=== PATIENT | female | born 1940 | race Caucasian/White ===

== ENCOUNTER 2019-10-11 12:54 | Inpatient (IN) | payer MEDICARE, OTHER, MEDICAID, SELFPAY | END 2019-10-20 15:54 | disposition skilled nursing facility (03) | DRG 243 | PROVIDERS: Admitting Provider Family Medicine; Family Provider Family Medicine; Visit Provider Internal Medicine | DX: I48.20 Chronic atrial fibrillation, unspecified (principal); I13.0 Hypertensive heart and chronic kidney disease with heart failure and stage 1 through stage 4 chronic kidney disease, or unspecified chronic kidney disease; N17.9 Acute kidney failure, unspecified; I50.32 Chronic diastolic (congestive) heart failure; I49.5 Sick sinus syndrome; E86.0 Dehydration; I10 Essential (primary) hypertension; T50.905A Adverse effect of unspecified drugs, medicaments and biological substances, initial encounter; N14.2 Nephropathy induced by unspecified drug, medicament or biological substance; Z79.82 Long term (current) use of aspirin; F41.8 Other specified anxiety disorders; E78.5 Hyperlipidemia, unspecified; N18.3 Chronic kidney disease, stage 3 (moderate); K21.9 Gastro-esophageal reflux disease without esophagitis; M19.90 Unspecified osteoarthritis, unspecified site; G89.29 Other chronic pain; M79.606 Pain in leg, unspecified; Z86.73 Personal history of transient ischemic attack (TIA), and cerebral infarction without residual deficits ==

== ENCOUNTER 2019-10-23 10:29 | Emergency (ER) | payer SELFPAY | END 2019-10-23 13:20 | disposition home or self-care (01) | PROVIDERS: Emergency Provider Physician Assistant; Family Provider Family Medicine; Visit Provider Physician Assistant | DX: I82.621 Acute embolism and thrombosis of deep veins of right upper extremity (principal); I48.91 Unspecified atrial fibrillation; I10 Essential (primary) hypertension; M19.90 Unspecified osteoarthritis, unspecified site; K21.9 Gastro-esophageal reflux disease without esophagitis; Z79.82 Long term (current) use of aspirin; Z91.041 Radiographic dye allergy status; Z88.5 Allergy status to narcotic agent; Z88.0 Allergy status to penicillin; Z88.2 Allergy status to sulfonamides ==

== ENCOUNTER 2019-11-15 12:26 | Outpatient (CLI) | payer MEDICARE, OTHER, SELFPAY ==
--- NOTE | 2019-11-15 | US_ITS ---
WS: [id number] RIGHT UPPER EXTREMITY VENOUS ULTRASOUND EXAMINATION CLINICAL INFORMATION: SWELLING OF LIMB COMPARISON: None. FINDINGS: The right internal jugular, subclavian, and axillary veins are patent and free of thrombus. The visua lized right brachiocephalic veins is patent. Thrombus in the right basilic. Right cephalic is patent. US/ROR venous duplex UE RT IMPRESSION: Thrombus in the right basilic vein. Remainder upper extremity veins are patent
== END 2019-11-15 12:27 | disposition home or self-care (01) ==
LOC: RADOUTREAD 11-16 07:32
PROVIDERS: Family Provider Family Medicine; PCP Family Medicine; Visit Provider Physician Assistant
DX: Z76.89 Persons encountering health services in other specified circumstances (principal)

== ENCOUNTER → 2021-01-26 08:10 | Day surgery (SDC) | payer MEDICARE, OTHER, MEDICAID, SELFPAY | PROVIDERS: PCP Physician Assistant; Visit Provider Orthopaedic Surgery | DX: Z01.818 Encounter for other preprocedural examination (principal); M16.11 Unilateral primary osteoarthritis, right hip | CPT/HCPCS: 93005 ==

== ENCOUNTER → 2021-02-03 13:13 | Outpatient (BNVA) | payer MEDICARE, OTHER, SELFPAY | PROVIDERS: PCP Physician Assistant; Visit Provider Orthopaedic Surgery | DX: Z01.812 Encounter for preprocedural laboratory examination (principal); Z20.828 Contact with and (suspected) exposure to other viral communicable diseases | CPT/HCPCS: 87635 ==

== ENCOUNTER 2021-02-09 12:01 | Observation (INO) | payer MEDICARE, OTHER, SELFPAY ==
--- NOTE | 2021-01-26 13:03 | ECG_ITS ---
[facility] ED Test Date: 2021-01-26 Pat Name: Melba Leroy Department: Room: Gender: Female Software Quality Tester: : 1940 Requested By: Linh Navarro Order Number: [id number] Link MD: Freda Cardenas M.D. Measurements Intervals Iva Rate: 60 P: 82 MI: 249 QRS: -40 QRSD: 137 T: -5 QT: 453 QTc: 453 Interpretive Statements ELECTRONIC ATRIAL PACEMAKER MARKED LEFT AXIS DEVIATION [QRS AXIS < -30] RIGHT BUNDLE BRANCH BLOCK [120+ ms QRS DURATION, UPRIGHT V1, 40+ ms S IN I/aVL/V4/V5/V6] Compared to ECG 10/15/2019 04:30:08 No significant changes Electronically Signed On 01-29-2021 22:38:11 CDT by Freda Cardenas M.D. [id number]
[2021-01-26 13:13] VITALS: BMI 28.3
[2021-01-26 13:34] LABS: Basophils # 0.1 10^3/uL (0.0-0.1); Basophils % 0.8 %; Eosinophils # 0.1 10^3/uL (0.0-0.8); Eosinophils % 1.1 %; Hematocrit 39.5 % (37.0-47.0); Hemoglobin 12.4 g/dL (11.5-15.3); Lymphocytes # 1.9 10^3/uL (0.8-4.8); Lymphocytes % 25.8 %; Mean Corpuscular HGB Conc 31.4 g/dL (30.0-36.0); Mean Corpuscular Hemoglobin 28.3 pg (28.0-34.0); Mean Corpuscular Volume 90.2 fL (81-99); Mean Platelet Volume 9.5 fL (7.4-10.4); Monocytes # 0.6 10^3/uL (0.2-0.9); Monocytes % 8.8 %; Neutrophils # 4.53 10^3/uL (1.8-7.7); Neutrophils % 63.2 %; Nucleated Red Blood Cells % 0 %; Platelet Count 259 10^3/cmm (130-400); Red Blood Count 4.38 10^6/uL (4.1-5.3); Red Cell Distribution Width 13.4 % (12.1-15.1); White Blood Count 7.2 10^3/uL (4.0-10.0)
--- NOTE | 2021-01-26 13:47 | ANES.PREANE2 ---
Pre-Anesthetic Assessment Pre-Anesthetic Assessment: Height/Weight: Height 1.55 m Weight 68.039 kg Preop Diagnosis: Osteoarthritis Proposed Procedure: Operation Date: 02/09/21 10:00 Proposed Procedures p Total Hip Arthroplasty 61022 M16.11(Right) - Andrea Fowler MD Familial anesthetic complications: hard to wake Social: Social History: No alcohol and No tobacco Exam: Pre-Anes Outpt Exam: alert, oriented x 3, clear to auscultation bilaterally and regular rate & rhythm Airway: Cervical ROM: WNL MP: 2 Dentition: False CV/HEM: CV/HEM: Afib (pacemaker) and HTN Anesthetic Plan: ASA status: 3 Anesthesia: MAC and Regional (specify below) Other: spinal if off eliquis PFSH Anesthesia PFSH: Medical History Arthritis Essential hypertension GERD (gastroesophageal reflux disease) History of anemia Hyperlipidemia Persistent atrial fibrillation Sick sinus syndrome Tachy-yun syndrome Surgical History History of back surgery Family History Father CAD (coronary artery disease) Lung disease Mother Dementia Hypertension Sister Dementia Other Diabetes Social History Smoking and tobacco status: never smoked Alcohol intake: never Data Anesthesia CBC & Chem 7: 01/26/21 13:27 01/26/21 13:27 Other Labs: Laboratory Results - last 48 hr 01/26/21 13:27 WBC 7.2 RBC 4.38 Hgb 12.4 Hct 39.5 MCV 90.2 MCH 28.3 MCHC 31.4 RDW 13.4 Plt Count 259 MPV 9.5 Neut % (Auto) 63.2 Lymph % (Auto) 25.8 [place] % (Auto) 8.8 Eos % (Auto) 1.1 Baso % (Auto) 0.8 Neut # (Auto) 4.53 Lymph # (Auto) 1.9 [place] # (Auto) 0.6 Eos # (Auto) 0.1 Baso # (Auto) 0.1 Nucleated RBC % (auto) 0 Nucleated RBCs # 0.0 Cardiac Studies: No Data to Display
[2021-01-26 13:53] LABS: Anion Gap 13.6 (5-19); Blood Urea Nitrogen 24 mg/dL (8-23); Calcium 8.8 mg/dL (8.5-10.5); Carbon Dioxide 25 mmol/L (22-29); Chloride 96 mmol/L (98-107); Glucose 97 mg/dL (65-115); Osmolality Calculated 274 mOsm/kg (285-295); Potassium 4.6 mmol/L (3.5-5.1); Sodium 130 mmol/L (136-145)
[2021-02-09] VITALS (18 sets, daily range): BP systolic 99–164; BP diastolic 59–87; PULSE 60–90; RESP 15–18; TEMP 35.9–37.1; O2SAT 90–98
--- NOTE | 2021-02-09 09:03 | P.HP_ITS ---
Same Day Surgery H&P Indication for Procedure/HPI DATE OF PROCEDURE: February 09, 2021 CHIEF COMPLAINT/INDICATIONFOR SURGICAL PROCEDURE: Osteoarthritis right hip here for right total hip arthroplasty PREOP DIAGNOSIS: Osteoarthritis PLANNED PROCEDRUE: Operation Date: 02/09/21 09:35 Proposed Procedures p Total Hip Arthroplasty 84549 M16.11(Right) - Andrea Fowler MD Medications/Allergies* Home Medications Medication Instructions Recorded Confirmed Type amiodarone 200 mg tablet 200 mg PO DAILY tab 10/31/19 02/09/21 History apixaban 5 mg tablet 5 mg PO BID 10/31/19 02/09/21 History citalopram 20 mg tablet 20 mg PO DAILY tab 10/31/19 02/09/21 History isosorbide mononitrate 10 mg tablet 10 mg PO DAILY tab 10/31/19 02/09/21 History lovastatin 20 mg tablet 20 mg PO DAILY tab 10/31/19 02/09/21 History magnesium 250 mg tablet 250 mg PO DAILY tab 10/31/19 01/26/21 History metoprolol tartrate 25 mg tablet 12.5 mg PO BID 10/31/19 02/09/21 History tamsulosin 0.4 mg capsule 0.4 mg PO DAILY cap 10/31/19 02/09/21 History amlodipine 5 mg tablet 5 mg PO DAILY tab 06/23/20 02/09/21 History furosemide 20 mg tablet 20 mg PO DAILY tab 06/23/20 02/09/21 History losartan 100 mg tablet 100 mg PO DAILY tab 06/23/20 02/09/21 History potassium chloride 10 mEq 10 meq PO DAILY tab 06/23/20 02/09/21 History tablet,extended release Allergies/Adverse Reactions Allergy/AdvReac Type Severity Reaction Status Date / Time Iodine and Iodide Containing Allergy Unknown Verified 01/26/21 13:06 Produc penicillin G Allergy rash Verified 01/26/21 13:06 Sulfa (Sulfonamide Allergy rash Verified 01/26/21 13:06 Antibiotics) Pertinent History/Comorbid Conditions* Medical History (Updated 06/23/20 @ 14:01 by Cedric Bermudez MD) Arthritis Essential hypertension GERD (gastroesophageal reflux disease) History of anemia Hyperlipidemia Persistent atrial fibrillation Sick sinus syndrome Tachy-yun syndrome Surgical History (Updated 11/24/19 @ 11:12 by SWETA Ruiz) History of back surgery Family History (Updated 11/22/19 @ 11:54 by Mya Marsh RN) Diabetes CAD (coronary artery disease) Father Dementia Mother Sister Lung disease Father Hypertension Mother Social History Smoking and tobacco status: never smoked Alcohol intake: never Pertinent Exam Findings alert, oriented x 3, clear to auscultation bilaterally, regular rate & rhythm and operative site marked Recommendations Surgery/Procedure today Coding Level of Care Code Acute Sales Solutions Representative for Adriano Palacios
[2021-02-09] MEDS: oxyCODONE 20 mg ER (12 HR) Tablet PO (09:06)
[2021-02-09] MEDS: gabapentin 300 mg Capsule PO ×2 (09:07→17:54)
[2021-02-09] MEDS: acetaminophen 500 mg Tablet 1000 MG PO ×2 (09:08→17:54)
[2021-02-09] MEDS: CELEcoxib 200 mg Capsule 400 MG PO (09:08)
[2021-02-09] MEDS: sodium chloride 0.9% 1,000 ML 30 ML IV (09:11)
[2021-02-09] MEDS: scopolamine 1.5 Patch 1 PATCH TRANSDERMA (09:19)
--- NOTE | 2021-02-09 09:28 | P.ANESUD_ITS ---
Pre-Anesthetic Update Pre-Anesthetic Assessment: Date of Surgery/Procedure: 02/09/21 Preop Chel gnosis: Osteoarthritis Proposed Procedure: Operation Date: 02/09/21 09:35 Proposed Procedures p Total Hip Arthroplasty 09144 M16.11(Right) - Andrea Fowler MD Any changes to Pre-Anesthetic Assessment?: No Last Intake: Intake Last Liquid Date 02/08/21 Last Liquid Time 21:00 Last Solid Date 02/08/21 Last Solid Time 18:00 Vitals: Temperature 97.7 F 02/09/21 08:46 Temperature Source Temporal Artery S can 02/09/21 08:46 Pulse Rate 63 02/09/21 08:46 Respiratory Rate 18 02/09/21 09:06 Respiratory Depth Normal 02/09/21 09:06 Respiratory Patter n 02/09/21 09:06 Blood Pressure 164/87 02/09/21 08:46 Blood Pressure Radha n 112 02/09/21 08:46 Pulse Oximetry 98 02/09/21 09:06 Oxygen Delivery Me thod 02/09/21 08:46 Exam: Pre-Anes Outpt Exam: alert, oriented x 3, clear to auscultation bilaterally and regular rate & rhythm Cardiac Studies: No Data to Display
[2021-02-09] MEDS: tranexamic acid 1,000 mg/10mL SDV 1000 MG IRRIGATION (10:23)
--- NOTE | 2021-02-09 11:31 | P.OP_ITS ---
Operative Report Date of procedure: February 09, 2021 Pre-op Diagnosis: Osteoarthritis Post-op diagnosis: same Post-op Findings: Same Procedure Done: Right total hip arthroplasty Pathology: none sent Surgeon: Andrea Fowler Anesthesia: Nerve Block (Spinal) Estimated blood loss (mL): 200 Findings: Patient had severe degenerative changes of the right hip with flattening of the femoral head and eburnation of the acetabular Condition: stable Disposition: PACU Procedure: The patient was taken to the operating room and anesthesia provided by the anesthesia service. The patient was placed in the lateral position on a beanbag. A timeout was performed. The patient was draped in the usual fashion. A 15 cm long incision was made beginning just proximal to the greater trochanter and extending posteriorly to a point just distal to the trochanter on the posterior border of the trochanter. Dissection was carried down with electrocautery through the subcutaneous fat to the fascia edilberto which was divided proximally and distally with curved scissors. The anterior two thirds of the gluteus medius and minimus were elevated off the hip with electrocautery. The capsule was divided in a H-like fashion. The hip was dislocated and a neck cut made just above the level of the lesser trochanter. Exposure of the acetabulum was facilitated with the acetabular retractors. Remnants of labrum and peripheral osteophytes were removed with electrocautery and a rongeur. A reamer 2 mm under the size the femoral head was utilized to ream medially to the base of the palm and are. Reaming was then increased in 1 mm intervals until a healthy rim a trabecular bone was encountered. A trial ADM cup was placed and its position marked with electrocautery In the acetabulum. A final was press-fit into place. Attention was then focused on the femur. Sequential reaming was done under power until cortical chatter was encountered. Broaching was then accomplished until a stable broach size was obtained. A trial reduction with the head and neck provided excellent stability. The wound was irrigated with saline and antibiotic solution. The final Jorge SecureFit Max stem was press-fit into place. The femoral head was placed and the hip was reduced. The hip was brought through range of motion and found to be free of impingement and stable. The anterior capsule was reapproximated with 1 Ethibond. The gluteus medius and minimus were repaired through bone with 5 Ethibond and reinforced with 1 Ethibond. The fascial edilberto was closed with a running 0 Stratafix suture. Deep pelvic tissues were closed with 2-0 Stratafix and the skin with a running 4-0 l Stratafix. 1) Institute []mm ADM acetabular shell 2) Size [] Institute [] degree neck angle SecureFit Max stem 3} []mm [] femoral head 4} Restorationa ADM X3 insert
--- NOTE | 2021-02-09 11:39 | XRR_ITS ---
PROCEDURE INFORMATION: Exam: XR Pelvis Exam date and time: 02/09/2021 11:45 AM Age: 81 years old Clinical indication: Device placement; Other: Total hip arthroplasty; Prior surgery; Surgery date: Post-operative (0-2 days) TECHNIQUE: Imaging protocol: XR pelvis. Views: 1 or 2 view. COMPARISON: CR XR hip RT 2-3V wo/w pel* [id number] 02/27/2020 10:58 AM FINDINGS: Bones/joints: The patient has undergone recent insertion of a total right hip prosthesis. Gas is present in the soft tissues from the recent surgery. No fracture or other acute abnormalities are seen. Soft tissues: See Bones/joints finding. XR/XR pelvis 1-2V* [id number] IMPRESSION: Satisfactory appearance of the total right hip prosthesis.
--- NOTE | 2021-02-09 13:28 | SUR.PHASEI ---
1135 PT TO PACU AWAKE ALERT ON RA PT SMILING AND ANSWERS QUESTIONS APPROPRIATELY, VSS SPINAL ANESTHESIA AT T 10 AREA.
--- NOTE | 2021-02-09 13:29 | SUR.PHASEI ---
1204 PT REMAINS AWAKE PAIN FREE, VSS SPINAL NOW AT T-12 PT UNABLE TO MOVE TOES, ABD PILLOW IN PLACE, VSS URINE YELLOW TO HESTER AND TUBING. SCD TO UNAFFECTED LEG. DISTAL RT PULSE STRONG AND REGULAR AND MARKED. PT TO FLOOR PER BED DAUGHTER CALLED AND MET PT AT ROOM.
--- NOTE | 2021-02-09 15:41 | ANE.PACU2 ---
Inpatient post-anesthesia follow up: Airway intact: Yes Vital signs: Temperature 98.7 F Pulse Rate 60 Respiratory Rate 18 Blood Pressure 128/77 Pulse Oximetry 96 Oxygen Delivery Me thod Room Air Oxygen Flow Rate Fraction of Inspir ed Oxygen Hydration adequate: Yes Nausea and vomiting: No Pain level: 2 Mental status: Baseline
[2021-02-09] MEDS: oxyCODONE 5 mg IR Tab/Cap PO (16:28)
[2021-02-09] MEDS: sennosides-docusate Tablet 2 TAB PO (17:54)
[2021-02-09] MEDS: sodium chloride 0.9% 1,000 ML 100 ML IV (20:01)
[2021-02-10] VITALS (7 sets, daily range): BP systolic 91–129; BP diastolic 55–73; PULSE 61–66; RESP 16–19; TEMP 36.6–37.1; O2SAT 90–95
[2021-02-10] MEDS: acetaminophen 500 mg Tablet 1000 MG PO ×2 (02:02→08:37)
[2021-02-10 02:18] LABS: Hemoglobin 9.8 g/dL (11.5-15.3)
[2021-02-10] MEDS: sodium chloride 0.9% 1,000 ML 100 ML IV (06:01)
[2021-02-10] MEDS: sennosides-docusate Tablet 2 TAB PO (08:33)
[2021-02-10] MEDS: isosorbide mononitrate 20 mg Tablet 10 MG PO (08:34)
[2021-02-10] MEDS: atorvastatin 40 mg Tablet 20 MG PO (08:35)
[2021-02-10] MEDS: potassium chloride ER 10 mEq Tablet PO (08:37)
[2021-02-10] MEDS: gabapentin 300 mg Capsule PO (08:37)
[2021-02-10] MEDS: citalopram 20 mg Tablet PO (08:38)
[2021-02-10] MEDS: tamsulosin 0.4 mg Capsule PO (08:38)
--- NOTE | 2021-02-10 10:19 | PC.CHAP ---
Pastoral Care Encounter/Spiritual Assessment Type of Contact [] Declined propagator laborer visit [] Patient/Family/Request visit [] Outpatient visit [] Follow-up visit [] Physician referral [] Code/Alert [xx] Routine visit [] Staff referral [] Actively dying [] Patient sleeping [] Family support [] [] Out of room [] Palliative care [] [] Receiving care in room [] Pre-surgical visit [] Trauma [] Long length of stay [] ICU visit [] Other: Relational/Emotional Strength [] Patient feels connected with others/family/visitors/staff [] Distress [] Loneliness/isolation [] Abandonment Spirituality of Patient [x] Person of Lor [x] Attends Confucianist of their Lor [x] Believes in Prayer [] Reads Bible or Protestant materials [] There are Spiritual issues to be addressed Yolk Spray Drier Interventions [x] Prayer [x] Active listening [x] Non-anxious presence [x] Spiritual/emotional support [] Crisis/trauma care [] Spiritual counseling [] Bereavement support [] Provided bereavement packet [] Provided Bible/devotional materials [] Provided toy/stuffed animal, coloring book to patient or family member [] Provided Communion [] Anointing/[place] [] Salvation [x] Completed spiritual assessment [] Other: Impact on Illness or Injury [] Angry [] Fearful [] Anxious [] Often cries [] Exhaustion [] Unable to work [] Unable to attend christian [] Unable to walk/stand [] Unable to read [] Unable to drive [] Unable to eat/drink [] Unable to sleep [] Unable to be with family [] Patient intubated [] Other: Summary Time spent with patient
[2021-02-10] MEDS: apixaban 5 mg Tablet PO (10:57)
--- NOTE | 2021-02-10 14:33 | PM.DCS ---
Discharge Providers Date of Admission: 02/09/21 12:01 Date of Discharge: February 10, 2021 Attending Provider at Admission: Andrea Fowler MD Attending Provider at Discharge: Andrea Fowler MD Primary Care Provider: Lidia Stephens Diagnoses at Discharge Discharge Diagnosis (1) Status post right hip replacement: Status: Acute (2) Osteoarthritis of right hip: Status: Resolved Reason for Visit Reason for Visit: primary osteoarthrtis of hip Hospital Course Hospital Course Patient underwent elective right total hip arthroplasty on 02/09/2021. On the first postoperative day she had minimal pain. She did well with her walker and was independent with gait. She was resumed on her Eliquis and managed with sequential compression dressings for DVT prophylaxis. At the time of this dictation she is scheduled for discharge when she passes her urine Physical Exam Narrative: EXAM NARRATIVE: On the day of discharge the hip incision was clean. The incision was free of drainage. They had no particular swelling about the thigh or distal. No distal neurovascular deficits were noted. Urinary Catheter Management^: Black: Cath Placed During This Visit: yes Urinary Catheter Date of Insertion: 02/09/21 Urinary Catheter Time of Insertion: 10:00 Discharge Data Data Completed and Pending: Completed Studies During Hospitalization Category Date Time Status XR pelvis 1-2V* 7 2170 Routine Exams 02/09/21 11:39 Completed Labs from last 24 hours 02/10/21 01:55 Hgb 9.8 L Vitals: Last Vital Signs Temp 98.7 F 02/10/21 11:36 Pulse 62 02/10/21 11:36 Resp 19 H 02/10/21 11:36 BP 109/55 02/10/21 11:36 Pulse Ox 95 02/10/21 11:36 Discharge Plan Discharge Patient Disposition: Home Condition: Stable Prescriptions: New oxycodone 5 mg Tablet 5 mg PO Q4H PRN (Reason: Moderate Pain) 7 Days Qty: 40 RF: 0 Continued amiodarone 200 mg tablet 200 mg PO DAILY RF: 0 Eliquis 5 mg tablet 5 mg PO BID RF: 0 amlodipine 5 mg tablet 5 mg PO DAILY RF: 0 potassium chloride 10 mEq tablet extended release 10 meq PO DAILY RF: 0 furosemide 20 mg tablet 20 mg PO DAILY RF: 0 losartan 100 mg tablet 100 mg PO DAILY RF: 0 lovastatin 20 mg tablet 20 mg PO DAILY RF: 0 isosorbide mononitrate 10 mg tablet 10 mg PO DAILY RF: 0 citalopram [Celexa] 20 mg tablet 20 mg PO DAILY RF: 0 metoprolol tartrate 25 mg tablet 12.5 mg PO BID RF: 0 tamsulosin [Flomax] 0.4 mg capsule 0.4 mg PO DAILY RF: 0 magnesium 250 mg tablet 250 mg PO DAILY RF: 0 acetaminophen 650 mg tablet extended release 650 mg PO Q12H PRN (Reason: hypertension) Qty: 60 RF: 6 mupirocin 2 % ointment 1 applic topical BID Qty: 22 RF: 0 Discharge Orders: Discharge Order (Routine); Ordered 02/10/21 Ordered By: Andrea Fowler Other Ambulatory Orders: DME: Walker (Order) Location: None Selected Ordered By: Andrea Fowler Referrals: [facility]) [Outside] Andrea Fowler MD [Physician] - 02/24/21 11:45 am Discharge Diet: Advance as tolerated Discharge Activity: Limit activity as instructed Patient Instructions: Oxycodone, Rapid Release (By mouth), Total Hip Replacement (DC), How to Choose and Use a Walker (GEN), Opioid Safety Activity Restrictions/Additional Instructions: Okay to shower. No soaking incision in tub Apply FirstIce up to 20 min/hr for pain and swelling Take Tylenol as before surgery up to 3 times a day for pain take oxycodone for breakthrough pain. Exercises per physical therapy. May weight-bear as tolerated on total hip arthroplasty Discharge Attestations Time Spent in Discharge Care*: other Quality Metrics Clinical Quality Measures During this hospital stay, did patient experience: None Coding Level of Care Code Acute [facility] DC note Diagnoses Status post right hip replacement Z96.641 Osteoarthritis of right hip M16.11
== END 2021-02-10 17:22 | disposition home or self-care (01) ==
LOC: MEDSURG 12:01
PROVIDERS: Anesthesiology; Admitting Provider Orthopaedic Surgery; PCP Physician Assistant; Visit Provider Orthopaedic Surgery
PROC: (CPT 27130; principal; 2021-02-09 09:15)
DX: M16.11 Unilateral primary osteoarthritis, right hip (principal); Z95.0 Presence of cardiac pacemaker; I10 Essential (primary) hypertension; E78.5 Hyperlipidemia, unspecified; I48.19 Other persistent atrial fibrillation
CPT/HCPCS: 27130; 36415; 72170; 80048; 85018; 85025; 97116; 97161; 97166; 97530; 97535; C1776; G0378; J0690; J1580; J2704; J7030; P9047

== ENCOUNTER 2021-02-11 16:41 | Inpatient (IN) | payer MEDICARE, OTHER, SELFPAY ==
[2021-02-11 16:42] VITALS: BP 178/69; PULSE 70; RESP 18; TEMP 37.6; O2SAT 95; BMI 32.1
[2021-02-11 16:55] VITALS: BP 166/67; PULSE 64; O2SAT 93
--- NOTE | 2021-02-11 16:59 | XR_ITS ---
WS: [id number] Portable AP supine chest, 02/11/2021 Clinical Data: Right sided rhonchi. post op day 2 AMS Comparison: Portable chest, 10/18/2019. Findings: No nodules, masses or effusions are seen. The heart is normal. The pulmonary vascularity is not increased. No pneumonia or pneumothorax is seen. There is a 2-lead pacemaker unchanged in positi on. The aortic arch and descending aorta show tortuosity. XR/XR chest 1V portable [id number] Impression: Atherosclerosis.
--- NOTE | 2021-02-11 17:01 | ECG_ITS ---
[facility] Test Date: 2021-02-11 Pat Name: Melba Leroy Department: Room: Gender: Female Distance Learning Program Coordinator: : 1940 Requested By: Puneet Beltrán Order Number: [id number] Reading MD: SEAN GLORIA Measurements Intervals Johnson Rate: 60 P: 107 LA: 233 QRS: -11 QRSD: 129 T: 0 QT: 436 QTc: 438 Interpretive Statements ELECTRONIC ATRIAL PACEMAKER RIGHT BUNDLE BRANCH BLOCK [120+ ms QRS DURATION, UPRIGHT V1, 40+ ms S IN I/aVL/V4/V5/V6] Compared to ECG 01/26/2021 13:38:06 Left-axis deviation no longer present Electronically Signed On 02-11-2021 19:22:32 CDT by SEAN GLORIA [email or web address]
--- NOTE | 2021-02-11 17:02 | W.ED.AMS ---
Documented by User: Puneet Beltrán MD 02/19/21 23:35 HPI - Altered Mental Status General: Chief Complaint: Altered Mental Status Stated Complaint: AMS, POST HIP SURGERY 1 WK AGO Time Seen by Provider: 02/11/21 16:49 History of Present Illness: HPI narrative: The patient is an 81-year-old female with past medical history total hip arthroplasty yesterday. She comes to the ER today confused and short of breath. Family says she is also hallucinating. She is able to answer questions but does so slowly and is confused. MD complaint: confusion Associated symptoms: Deny depression Review of Systems General: Reports: 10 or more systems reviewed and unremarkable except in HPI and below Const: Denies: fatigue Eyes: Denies: change in vision, blurry vision or eye redness ENMT: Denies: throat pain, swelling of lips/tongue, ear or mastoid pain or nasal congestion Card: Denies: chest pain, palpitations, irregular heart rhythm, edema, dyspnea on exertion or orthopnea Resp: Denies: dyspnea, productive cough or non-productive cough GI: Denies: abdominal pain, diarrhea or GI cramping : Denies: flank pain, difficulty voiding, urinary frequency or urinary urgency Musc: Denies: neck pain, back pain, extremity pain, joint pain, joint redness, limited range of motion or muscle weakness Skin/Breast: Denies: rash, pruritus, erythema, skin pain or skin tenderness Neuro: Denies: headache(s), numbness in extremities, weakness in extremities, sensory changes, difficulty walking, dizziness, confusion or Slurred speech present Psych: Denies: anxiety or depression Endo: Denies: polyuria All/Imm: Denies: urticaria, throat swelling or tongue swelling PFSH ED PFSH: Medical History (Updated 02/14/21 @ 00:01 by ) Arthritis Essential hypertension GERD (gastroesophageal reflux disease) History of anemia Hyperlipidemia 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 Persistent atrial fibrillation Sick sinus syndrome Tachy-yun syndrome Surgical History (Updated 02/10/21 @ 08:16 by Andrea Fowler MD) History of back surgery Family History Father CAD (coronary artery disease) Lung disease Mother Dementia Hypertension Sister Dementia Other Diabetes Social History (Reviewed 01/07/21 @ 14:39 by MICHELINE Lang Smoking and tobacco status: never smoked Alcohol intake: never Physical Exam Const: COMMON NORMALS: no acute distress, average body habitus, patient oriented x3, no limitations, healthy appearing, alert and well nourished GENERAL APPEARANCE: cooperative, comfortable, well kempt and well developed ORIENTATION/CONSCIOUSNESS: Yes awake, Yes oriented to person, Yes oriented to place, Yes oriented to time and Yes confused HENMT: COMMON NORMALS: normocephalic, external ears normal and Normal external nose present HEAD & SCALP: normal to inspection and normocephalic NOSE: Normal external nose present EXTERNAL EAR: Yes external ears normal MOUTH: Normal oral and palatal mucosa present THROAT: posterior oropharynx normal Eye: COMMON NORMALS: Equal, round and reactive pupils present and EOMs intact bilaterally GENERAL EYE: appearance normal, both eyes and all related structures PUPIL: Yes Equal, round and reactive pupils present Neck/C-Spine: COMMON NORMALS: full ROM, no lymphadenopathy, no meningeal signs and no JVD GENERAL: Yes normal visual inspection Lymph: LYMPHATIC: no lymphadenopathy noted Chest: COMMONS NORMALS: normal inspection of the chest and normal palpation of entire chest wall Resp: COMMON NORMALS: normal respiratory effort, No retractions, No use of accessory muscles, clear to auscultation bilaterally and percussion normal EFFORT & INSPECTION: Yes able to speak in complete sentences AUSCULTATION: clear to auscultation bilaterally PERCUSSION: percussion normal Cardio: COMMON NORMALS: no JVD, regular rate, regular rhythm, S1 normal heart sound present, S2 normal heart sound present and Peripheral pulses 2+ throughout RATE: regular rate RHYTHM: regular rhythm HEART SOUNDS: S1 normal heart sound present and S2 normal heart sound present PERIPHERAL PULSES: Peripheral pulses 2+ throughout GI: COMMON NORMALS: Normal to inspection, nondistended, normoactive bowel sounds present, Soft to palpation, non-tender and no masses INSPECTION: Yes normal to inspection PALPATION: Yes Soft to palpation : COMMON NORMALS: Yes no CVA tenderness BLADDER/KIDNEY EXAM: Yes no CVA tenderness Back/Pelvis: COMMON NORMALS: no CVA tenderness, thoracic and lumbar spine normal to inspection, no thoracic nor lumbar tenderness and thoraco-lumbar ROM normal Extremity: COMMON NORMALS: normal to inspection, full ROM, capillary refill normal, no joint enlargement and no pedal edema NARRATIVE EXTREMITY EXAM: Right hip postsurgical scar looks clean and uninfected. Appropriate level of associated tenderness GENERAL: Yes normal exam except as noted Neuro: DEMARCUS COMA SCALE: document GCS findings Demarcus coma scale eye opening: Spontaneous Demarcus coma scale verbal response: Confused [place] coma scale motor response: Obey commands Demarcus coma scale total score: 14 COMMON NORMALS: patient oriented x3, CN's II-XII intact bilaterally, moves all extremities, no focal motor deficits, no sensory deficits noted and gait normal SENSORIUM/ORIENTATION: Yes alert, Yes oriented to person, Yes oriented to place and Yes oriented to time MENINGEAL SIGNS: Yes no meningeal signs Psych: COMMON NORMALS: mental status grossly normal, Normal thought process present, cooperative, normal affect and speech normal APPEARANCE: Yes well kempt ATTITUDE: Yes calm SPEECH: Yes normal speech THOUGHT PROCESS: Normal thought process present Skin: COMMON NORMALS: no rashes or lesions noted GENERAL SKIN EXAM: no rashes or lesions noted Course Vital Signs: Vital signs: Vital Signs Temperature 97.9 F 02/13/21 16:19 Pulse Rate 60 02/13/21 16:19 Respiratory Rate 18 02/13/21 16:19 Blood Pressure 115/62 02/13/21 16:19 Pulse Oximetry 91 02/13/21 15:10 MDM - Altered Mental Status MDM Narrative: Medical decision making narrative: Leigh Ann: I took care of this patient and she is 1 day postop and confused with a sodium of 126. Also has mild elevated temperature. Transferred care at shift change. Lab Data: Labs: Lab Results 02/11/21 02/11/21 02/11/21 Range/Units 00:54 17:56 18:49 WBC 12.4 H (4.0-10.0) 10^3/ uL RBC 3.70 L (4.1-5.3) 10^6/u L Hgb 10.6 L (11.5-15.3) g/dL Hct 34.3 L (37.0-47.0) % MCV 92.7 (81-99) fL MCH 28.6 (28.0-34.0) pg MCHC 30.9 (30.0-36.0) g/dL RDW 13.3 (12.1-15.1) % Plt Count 216 (130-400) 10^3/c mm MPV 9.8 (7.4-10.4) fL Neut % (Auto) 76.9 % Lymph % (Auto) 10.9 % [place] % (Auto) 9.6 % Eos % (Auto) 1.5 % Baso % (Auto) 0.4 % Neut # (Auto) 9.50 H (1.8-7.7) 10^3/u L Lymph # (Auto) 1.3 (0.8-4.8) 10^3/u L [place] # (Auto) 1.2 H (0.2-0.9) 10^3/u L Eos # (Auto) 0.2 (0.0-0.8) 10^3/u L Baso # (Auto) 0.1 (0.0-0.1) 10^3/u L Nucleated RBC % (a uto) 0 % Nucleated RBCs # 0.0 /100WBC D-Dimer (0-0.59) ug/mIFE U Sodium (136-145) mmol/L Potassium (3.5-5.1) mmol/L Chloride (98-107) mmol/L Carbon Dioxide (22-29) mmol/L Anion Gap (5-19) BUN (8-23) mg/dL Creatinine (0.5-0.9) mg/dL GFR Calculation Glucose (65-115) mg/dL Calculated Osmolal ity (285-295) mOsm/k g Lactate (0.5-2.2) mmol/L Calcium (8.5-10.5) mg/dL Total Bilirubin (0.15-1.2) mg/dL AST (0-32) U/L ALT (0-33) U/L Alkaline Phosphata se (35-105) IU/L Troponin T Baselin e (0-10) ng/L Troponin T Hi Sens 6Hr 47.47 H (0-10) ng/L Troponin T Hi Sens 6Hr Delta 0.56 (0-12) ng/L NT-Pro-B Natriuret Pep (0-450) pg/mL Total Protein (6.6-8.7) g/dL Albumin (3.5-5.2) g/dL Globulin (1.3-4.6) g/dL Urine Color Yellow (Yellow) Urine Appearance Clear (CLEAR) Urine pH 5 (5-7) Ur Specific Gravit y 1.005 (1.005-1.030) Urine Protein Neg (Negative) Urine Glucose (UA) Norm (Normal) Urine Ketones Negative (Negative) Urine Blood 2+ H (Negative) Urine Nitrate Negative (Negative) Urine Bilirubin Neg (Negative) Urine Urobilinogen Norm (Negative) mg/dL Ur Leukocyte Justa ase Negative (Negative) Urine RBC 0-4 H (0-2) /hpf Urine WBC 0-4 H (0-5) /hpf Ur Squamous Epith Cells 0-4 H (0-5) /hpf Amorphous Sediment Not Reportable Urine Bacteria Trace (NONE) /hpf SARS-CoV-2 Ag (Rap id) (Negative) 02/11/21 02/11/21 02/11/21 Range/Units 18:49 18:49 18:49 WBC (4.0-10.0) 10^3/ uL RBC (4.1-5.3) 10^6/u L Hgb (11.5-15.3) g/dL Hct (37.0-47.0) % MCV (81-99) fL MCH (28.0-34.0) pg MCHC (30.0-36.0) g/dL RDW (12.1-15.1) % Plt Count (130-400) 10^3/c mm MPV (7.4-10.4) fL Neut % (Auto) % Lymph % (Auto) % [place] % (Auto) % Eos % (Auto) % Baso % (Auto) % Neut # (Auto) (1.8-7.7) 10^3/u L Lymph # (Auto) (0.8-4.8) 10^3/u L [place] # (Auto) (0.2-0.9) 10^3/u L Eos # (Auto) (0.0-0.8) 10^3/u L Baso # (Auto) (0.0-0.1) 10^3/u L Nucleated RBC % (a uto) % Nucleated RBCs # /100WBC D-Dimer (0-0.59) ug/mIFE U Sodium 126 L (136-145) mmol/L Potassium 4.3 (3.5-5.1) mmol/L Chloride 96 L (98-107) mmol/L Carbon Dioxide 20 L (22-29) mmol/L Anion Gap 14.3 (5-19) BUN 27 H (8-23) mg/dL Creatinine 1.5 H (0.5-0.9) mg/dL GFR Calculation Not Reportable Glucose 109 (65-115) mg/dL Calculated Osmolal ity 268 L (285-295) mOsm/k g Lactate 2.5 H (0.5-2.2) mmol/L Calcium 8.1 L (8.5-10.5) mg/dL Total Bilirubin 0.4 (0.15-1.2) mg/dL AST 63 H (0-32) U/L ALT 14 (0-33) U/L Alkaline Phosphata se 89 (35-105) IU/L Troponin T Baselin e 51 H (0-10) ng/L Troponin T Hi Sens 6Hr (0-10) ng/L Troponin T Hi Sens 6Hr Delta (0-12) ng/L NT-Pro-B Natriuret Pep 3433 H (0-450) pg/mL Total Protein 5.1 L (6.6-8.7) g/dL Albumin 3.5 (3.5-5.2) g/dL Globulin 1.6 (1.3-4.6) g/dL Urine Color (Yellow) Urine Appearance (CLEAR) Urine pH (5-7) Ur Specific Gravit y (1.005-1.030) Urine Protein (Negative) Urine Glucose (UA) (Normal) Urine Ketones (Negative) Urine Blood (Negative) Urine Nitrate (Negative) Urine Bilirubin (Negative) Urine Urobilinogen (Negative) mg/dL Ur Leukocyte Justa ase (Negative) Urine RBC (0-2) /hpf Urine WBC (0-5) /hpf Ur Squamous Epith Cells (0-5) /hpf Amorphous Sediment Urine Bacteria (NONE) /hpf SARS-CoV-2 Ag (Rap id) (Negative) 02/11/21 02/11/21 Range/Units 18:52 19:24 WBC (4.0-10.0) 10^3/ uL RBC (4.1-5.3) 10^6/u L Hgb (11.5-15.3) g/dL Hct (37.0-47.0) % MCV (81-99) fL MCH (28.0-34.0) pg MCHC (30.0-36.0) g/dL RDW (12.1-15.1) % Plt Count (130-400) 10^3/c mm MPV (7.4-10.4) fL Neut % (Auto) % Lymph % (Auto) % [place] % (Auto) % Eos % (Auto) % Baso % (Auto) % Neut # (Auto) (1.8-7.7) 10^3/u L Lymph # (Auto) (0.8-4.8) 10^3/u L [place] # (Auto) (0.2-0.9) 10^3/u L Eos # (Auto) (0.0-0.8) 10^3/u L Baso # (Auto) (0.0-0.1) 10^3/u L Nucleated RBC % (a uto) % Nucleated RBCs # /100WBC D-Dimer 0.65 H (0-0.59) ug/mIFE U Sodium (136-145) mmol/L Potassium (3.5-5.1) mmol/L Chloride (98-107) mmol/L Carbon Dioxide (22-29) mmol/L Anion Gap (5-19) BUN (8-23) mg/dL Creatinine (0.5-0.9) mg/dL GFR Calculation Glucose (65-115) mg/dL Calculated Osmolal ity (285-295) mOsm/k g Lactate (0.5-2.2) mmol/L Calcium (8.5-10.5) mg/dL Total Bilirubin (0.15-1.2) mg/dL AST (0-32) U/L ALT (0-33) U/L Alkaline Phosphata se (35-105) IU/L Troponin T Baselin e (0-10) ng/L Troponin T Hi Sens 6Hr (0-10) ng/L Troponin T Hi Sens 6Hr Delta (0-12) ng/L NT-Pro-B Natriuret Pep (0-450) pg/mL Total Protein (6.6-8.7) g/dL Albumin (3.5-5.2) g/dL Globulin (1.3-4.6) g/dL Urine Color (Yellow) Urine Appearance (CLEAR) Urine pH (5-7) Ur Specific Gravit y (1.005-1.030) Urine Protein (Negative) Urine Glucose (UA) (Normal) Urine Ketones (Negative) Urine Blood (Negative) Urine Nitrate (Negative) Urine Bilirubin (Negative) Urine Urobilinogen (Negative) mg/dL Ur Leukocyte Justa ase (Negative) Urine RBC (0-2) /hpf Urine WBC (0-5) /hpf Ur Squamous Epith Cells (0-5) /hpf Amorphous Sediment Urine Bacteria (NONE) /hpf SARS-CoV-2 Ag (Rap id) Negative (Negative) Discharge Plan Discharge Patient Disposition: Admitted As Inpatient Admit Provider: Zaid Rincon Clinical Impression: Hyponatremia, Altered mental status, Fever Condition: Stable Discharge Diet: Regular Discharge Activity: Resume usual activity and Increase activity as tolerated Coding Level of Care Code 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 Persistent atrial fibrillation Sick sinus syndrome Tachy-yun syndrome Surgical History (Updated 02/10/21 @ 08:16 by Andrea Fowler MD) History of back surgery Family History Father CAD (coronary artery disease) Lung disease Mother Dementia Hypertension Sister Dementia Other Diabetes Social History Smoking and tobacco status: never smoked Alcohol intake: never Course Vital Signs: Vital signs: Vital Signs Temperature 97.9 F 02/13/21 16:19 Pulse Rate 60 02/13/21 16:19 Respiratory Rate 18 02/13/21 16:19 Blood Pressure 115/62 02/13/21 16:19 Pulse Oximetry 91 02/13/21 15:10 MDM - Altered Mental Status MDM Narrative: Medical decision making narrative: I took patient over from Dr. Agarwal. Patient's had low-grade fever along with altered male status. She is hyponatremic and I believe this is probably causing her altered mental status. Her fever is low-grade and could be from the anesthesia. She has no signs of pneumonia or UTI. Her white count here is normal. I spoke to the hospitalist and will admit. Lab Data: Labs: Lab Results 02/11/21 02/11/21 02/11/21 Range/Units 00:54 17:56 18:49 WBC 12.4 H (4.0-10.0) 10^3/ uL RBC 3.70 L (4.1-5.3) 10^6/u L Hgb 10.6 L (11.5-15.3) g/dL Hct 34.3 L (37.0-47.0) % MCV 92.7 (81-99) fL MCH 28.6 (28.0-34.0) pg MCHC 30.9 (30.0-36.0) g/dL RDW 13.3 (12.1-15.1) % Plt Count 216 (130-400) 10^3/c mm MPV 9.8 (7.4-10.4) fL Neut % (Auto) 76.9 % Lymph % (Auto) 10.9 % [place] % (Auto) 9.6 % Eos % (Auto) 1.5 % Baso % (Auto) 0.4 % Neut # (Auto) 9.50 H (1.8-7.7) 10^3/u L Lymph # (Auto) 1.3 (0.8-4.8) 10^3/u L [place] # (Auto) 1.2 H (0.2-0.9) 10^3/u L Eos # (Auto) 0.2 (0.0-0.8) 10^3/u L Baso # (Auto) 0.1 (0.0-0.1) 10^3/u L Nucleated RBC % (a uto) 0 % Nucleated RBCs # 0.0 /100WBC D-Dimer (0-0.59) ug/mIFE U Sodium (136-145) mmol/L Potassium (3.5-5.1) mmol/L Chloride (98-107) mmol/L Carbon Dioxide (22-29) mmol/L Anion Gap (5-19) BUN (8-23) mg/dL Creatinine (0.5-0.9) mg/dL GFR Calculation Glucose (65-115) mg/dL Calculated Osmolal ity (285-295) mOsm/k g Lactate (0.5-2.2) mmol/L Calcium (8.5-10.5) mg/dL Total Bilirubin (0.15-1.2) mg/dL AST (0-32) U/L ALT (0-33) U/L Alkaline Phosphata se (35-105) IU/L Troponin T Baselin e (0-10) ng/L Troponin T Hi Sens 6Hr 47.47 H (0-10) ng/L Troponin T Hi Sens 6Hr Delta 0.56 (0-12) ng/L NT-Pro-B Natriuret Pep (0-450) pg/mL Total Protein (6.6-8.7) g/dL Albumin (3.5-5.2) g/dL Globulin (1.3-4.6) g/dL Urine Color Yellow (Yellow) Urine Appearance Clear (CLEAR) Urine pH 5 (5-7) Ur Specific Gravit y 1.005 (1.005-1.030) Urine Protein Neg (Negative) Urine Glucose (UA) Norm (Normal) Urine Ketones Negative (Negative) Urine Blood 2+ H (Negative) Urine Nitrate Negative (Negative) Urine Bilirubin Neg (Negative) Urine Urobilinogen Norm (Negative) mg/dL Ur Leukocyte Justa ase Negative (Negative) Urine RBC 0-4 H (0-2) /hpf Urine WBC 0-4 H (0-5) /hpf Ur Squamous Epith Cells 0-4 H (0-5) /hpf Amorphous Sediment Not Reportable Urine Bacteria Trace (NONE) /hpf SARS-CoV-2 Ag (Rap id) (Negative) 02/11/21 02/11/21 02/11/21 Range/Units 18:49 18:49 18:49 WBC (4.0-10.0) 10^3/ uL RBC (4.1-5.3) 10^6/u L Hgb (11.5-15.3) g/dL Hct (37.0-47.0) % MCV (81-99) fL MCH (28.0-34.0) pg MCHC (30.0-36.0) g/dL RDW (12.1-15.1) % Plt Count (130-400) 10^3/c mm MPV (7.4-10.4) fL Neut % (Auto) % Lymph % (Auto) % [place] % (Auto) % Eos % (Auto) % Baso % (Auto) % Neut # (Auto) (1.8-7.7) 10^3/u L Lymph # (Auto) (0.8-4.8) 10^3/u L [place] # (Auto) (0.2-0.9) 10^3/u L Eos # (Auto) (0.0-0.8) 10^3/u L Baso # (Auto) (0.0-0.1) 10^3/u L Nucleated RBC % (a uto) % Nucleated RBCs # /100WBC D-Dimer (0-0.59) ug/mIFE U Sodium 126 L (136-145) mmol/L Potassium 4.3 (3.5-5.1) mmol/L Chloride 96 L (98-107) mmol/L Carbon Dioxide 20 L (22-29) mmol/L Anion Gap 14.3 (5-19) BUN 27 H (8-23) mg/dL Creatinine 1.5 H (0.5-0.9) mg/dL GFR Calculation Not Reportable Glucose 109 (65-115) mg/dL Calculated Osmolal ity 268 L (285-295) mOsm/k g Lactate 2.5 H (0.5-2.2) mmol/L Calcium 8.1 L (8.5-10.5) mg/dL Total Bilirubin 0.4 (0.15-1.2) mg/dL AST 63 H (0-32) U/L ALT 14 (0-33) U/L Alkaline Phosphata se 89 (35-105) IU/L Troponin T Baselin e 51 H (0-10) ng/L Troponin T Hi Sens 6Hr (0-10) ng/L Troponin T Hi Sens 6Hr Delta (0-12) ng/L NT-Pro-B Natriuret Pep 3433 H (0-450) pg/mL Total Protein 5.1 L (6.6-8.7) g/dL Albumin 3.5 (3.5-5.2) g/dL Globulin 1.6 (1.3-4.6) g/dL Urine Color (Yellow) Urine Appearance (CLEAR) Urine pH (5-7) Ur Specific Gravit y (1.005-1.030) Urine Protein (Negative) Urine Glucose (UA) (Normal) Urine Ketones (Negative) Urine Blood (Negative) Urine Nitrate (Negative) Urine Bilirubin (Negative) Urine Urobilinogen (Negative) mg/dL Ur Leukocyte Justa ase (Negative) Urine RBC (0-2) /hpf Urine WBC (0-5) /hpf Ur Squamous Epith Cells (0-5) /hpf Amorphous Sediment Urine Bacteria (NONE) /hpf SARS-CoV-2 Ag (Rap id) (Negative) 02/11/21 02/11/21 Range/Units 18:52 19:24 WBC (4.0-10.0) 10^3/ uL RBC (4.1-5.3) 10^6/u L Hgb (11.5-15.3) g/dL Hct (37.0-47.0) % MCV (81-99) fL MCH (28.0-34.0) pg MCHC (30.0-36.0) g/dL RDW (12.1-15.1) % Plt Count (130-400) 10^3/c mm MPV (7.4-10.4) fL Neut % (Auto) % Lymph % (Auto) % [place] % (Auto) % Eos % (Auto) % Baso % (Auto) % Neut # (Auto) (1.8-7.7) 10^3/u L Lymph # (Auto) (0.8-4.8) 10^3/u L [place] # (Auto) (0.2-0.9) 10^3/u L Eos # (Auto) (0.0-0.8) 10^3/u L Baso # (Auto) (0.0-0.1) 10^3/u L Nucleated RBC % (a uto) % Nucleated RBCs # /100WBC D-Dimer 0.65 H (0-0.59) ug/mIFE U Sodium (136-145) mmol/L Potassium (3.5-5.1) mmol/L Chloride (98-107) mmol/L Carbon Dioxide (22-29) mmol/L Anion Gap (5-19) BUN (8-23) mg/dL Creatinine (0.5-0.9) mg/dL GFR Calculation Glucose (65-115) mg/dL Calculated Osmolal ity (285-295) mOsm/k g Lactate (0.5-2.2) mmol/L Calcium (8.5-10.5) mg/dL Total Bilirubin (0.15-1.2) mg/dL AST (0-32) U/L ALT (0-33) U/L Alkaline Phosphata se (35-105) IU/L Troponin T Baselin e (0-10) ng/L Troponin T Hi Sens 6Hr (0-10) ng/L Troponin T Hi Sens 6Hr Delta (0-12) ng/L NT-Pro-B Natriuret Pep (0-450) pg/mL Total Protein (6.6-8.7) g/dL Albumin (3.5-5.2) g/dL Globulin (1.3-4.6) g/dL Urine Color (Yellow) Urine Appearance (CLEAR) Urine pH (5-7) Ur Specific Gravit y (1.005-1.030) Urine Protein (Negative) Urine Glucose (UA) (Normal) Urine Ketones (Negative) Urine Blood (Negative) Urine Nitrate (Negative) Urine Bilirubin (Negative) Urine Urobilinogen (Negative) mg/dL Ur Leukocyte Justa ase (Negative) Urine RBC (0-2) /hpf Urine WBC (0-5) /hpf Ur Squamous Epith Cells (0-5) /hpf Amorphous Sediment Urine Bacteria (NONE) /hpf SARS-CoV-2 Ag (Rap id) Negative (Negative) Imaging Data^: CXR: Attestation: I personally reviewed and interpreted this imaging study as follows: My impression: no acute abnormality CT Head: Attestation: I personally reviewed and interpreted this imaging study as follows: Radiologist's impression: [employer] [address] [address] Scan Report Signed Patient: Melba Leroy Unit #: [id number] : 1940 Age/Sex: 81 / F ADM Date: 02/11/21 Loc: ER Room/Bed: Attending Dr: Ordering Provider/Ordering MD: Puneet Beltrán MD Date of Service: 02/11/21 Procedure(s): CT head wo con* [id number] Accession Number(s): [id number] Report Number: [id number] PROCEDURE INFORMATION: Exam: CT Head Without Contrast Exam date and time: 02/11/2021 5:13 PM Age: 81 years old Clinical indication: Altered mental status/memory loss; Additional info: AMS. Post op right hip day 2. TECHNIQUE: Imaging protocol: Computed tomography of the head without contrast. Radiation optimization: All CT scans at this facility use at least one of these dose optimization techniques: automated exposure control; mA and/or kV adjustment per patient size (includes targeted exams where dose is matched to clinical indication); or iterative reconstruction. COMPARISON: CT head wo con* [id number] 12/25/2018 2:16 PM RADIATION DOSE METRICS: Total DLP (mGy-cm): 875.26 FINDINGS: Brain: No evidence of acute infarct. No mass or mass effect. No intra axial hemorrhage. No extra axial fluid collection or hemorrhage. Compared to the prior exam there has been progressive left frontal encephalomalacia. Scattered white matter hypodensities likely from chronic microvascular ischemic disease. Cerebral ventricles: Symmetric and without enlargement. Bones/joints: No acute fracture. Paranasal sinuses: Moderate inflammatory mucosal sinus disease. Mastoid air cells: Visualized mastoid air cells are well aerated. Soft tissues: No concerning abnormalities. CT/CT head wo con* [id number] IMPRESSION: 1. No acute intracranial abnormality. 2. Progressive left frontal encephalomalacia compared to the prior exam. 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
--- NOTE | 2021-02-11 17:31 | PC.NURSE ---
pt answered questions correctly for orientation evaluation, but she often had delayed responses or had to be redirected to the question before giving the appropriate answer. pt did seem altered and slightly confused.
[2021-02-11] MEDS: levofloxacin-dextrose 5 % 750 MG/150 ML PREMIX 100 MG IV (17:55)
[2021-02-11] MEDS: sodium chloride 0.9% 1,000 ML 999 ML IV (17:56)
[2021-02-11 18:04] VITALS: PULSE 62; O2SAT 94
[2021-02-11 18:37] LABS: Add Urine Microscopic? YES; Bacteria Urine TRACE /hpf; Bilirubin Urine Neg (Negative); Blood Urine 2+ (Negative); Glucose Urine UA Norm (Normal); Ketones Urine Negative (Negative); Leukocyte Esterase Urine Negative (Negative); Nitrate Urine Negative (Negative); Protein Urine Neg (Negative); RBC Urine 0-4 /hpf (0-2); Specific Gravity, Urine 1.005 (1.005-1.030); Squamous Epithelial Cell Urine 0-4 /hpf (0-5); Urine Appearance Clear (CLEAR); Urine Color Yellow (Yellow); Urobilinogen Urine Norm (Negative); WBC Urine 0-4 /hpf (0-5); pH Urine 5 (5-7)
--- NOTE | 2021-02-11 19:01 | ECG_ITS ---
[facility] Test Date: 2021-02-11 Pat Name: Melba Leroy Department: Room: Gender: Female Pillowcase Folder: : 1940 Requested By: Puneet Beltrán Order Number: [id number] Nikolay MD: SEAN GLORIA Measurements Intervals Cub Run Rate: 62 P: 124 MD: 233 QRS: -9 QRSD: 135 T: 2 QT: 438 QTc: 447 Interpretive Statements ELECTRONIC ATRIAL PACEMAKER RIGHT BUNDLE BRANCH BLOCK [120+ ms QRS DURATION, UPRIGHT V1, 40+ ms S IN I/aVL/V4/V5/V6] Compared to ECG 02/11/2021 17:41:10 No significant changes Electronically Signed On 02-11-2021 19:23:36 CDT by SEAN GLORIA [id number]
[2021-02-11 19:03] LABS: Basophils # 0.1 10^3/uL (0.0-0.1); Basophils % 0.4 %; Eosinophils # 0.2 10^3/uL (0.0-0.8); Eosinophils % 1.5 %; Hematocrit 34.3 % (37.0-47.0); Hemoglobin 10.6 g/dL (11.5-15.3); Lymphocytes # 1.3 10^3/uL (0.8-4.8); Lymphocytes % 10.9 %; Mean Corpuscular HGB Conc 30.9 g/dL (30.0-36.0); Mean Corpuscular Hemoglobin 28.6 pg (28.0-34.0); Mean Corpuscular Volume 92.7 fL (81-99); Mean Platelet Volume 9.8 fL (7.4-10.4); Monocytes # 1.2 10^3/uL (0.2-0.9); Monocytes % 9.6 %; Neutrophils % 76.9 %; Nucleated Red Blood Cells % 0 %; Platelet Count 216 10^3/cmm (130-400); Red Cell Distribution Width 13.3 % (12.1-15.1); White Blood Count 12.4 10^3/uL (4.0-10.0)
[2021-02-11 19:24] LABS: Lactate (Lactic Acid level) 2.5 mmol/L (0.5-2.2)
[2021-02-11 19:28] LABS: Troponin(5th) Baseline 51 ng/L (0-10)
[2021-02-11 19:30] VITALS: BP 162/42; PULSE 65; RESP 19; O2SAT 94
[2021-02-11 19:34] LABS: Alanine Aminotransferase 14 U/L (0-33); Albumin Level 3.5 g/dL (3.5-5.2); Alkaline Phosphatase 89 IU/L (35-105); Anion Gap 14.3 (5-19); Aspartate Amino Transferase 63 U/L (0-32); Blood Urea Nitrogen 27 mg/dL (8-23); Calcium 8.1 mg/dL (8.5-10.5); Carbon Dioxide 20 mmol/L (22-29); Chloride 96 mmol/L (98-107); Globulin 1.6 g/dL (1.3-4.6); Glucose 109 mg/dL (65-115); NT Pro B Type Natriuretic Pept 3433 pg/mL (0-450); Osmolality Calculated 268 mOsm/kg (285-295); Potassium 4.3 mmol/L (3.5-5.1); Sodium 126 mmol/L (136-145); Total Bilirubin 0.4 mg/dL (0.15-1.2); Total Protein 5.1 g/dL (6.6-8.7)
[2021-02-11] MEDS: acetaminophen 325 mg Tablet 650 MG PO (19:40)
[2021-02-11 19:43] LABS: SARS Covid-2 Antigen Negative (Negative)
[2021-02-11 19:48] LABS: D Dimer 0.65 ug/mIFEU (0-0.59)
--- NOTE | 2021-02-11 20:41 | P.HP_ITS ---
Providers/Chief Complaint Admitting Physician: Zaid Rincon Primary Care Provider: Lidia Stephens Chief Complaint: AMS, POST HIP SURGERY 1 WK AGO History of Present Illness Melba Leroy is a 81 year old female Who was discharged yesterday after right total hip arthroplasty. Today she is brought back by the family to emergency room due to confusion, hallucinations, some shortness of breath. The symptoms started last night and progressively got worse. Described as moderate in intensity. The patient is awake but her responses are confused and delayed. There is no dysarthria or aphasia. However the patient is unable to follow conversations. The daughter believes that she does have some baseline dementia. She did not require any pain medications after discharge. No signs of uncontrolled pain at home or here. There was mild fever but no cough or chest pain. Mild shortness of breath. Imaging studies revealed mild pulmonary congestion. BNP is elevated. Mild elevation of troponin. EKG shows no acute ischemic changes. Atrial pacemaker, right bundle branch block. She does have history of atrial fibrillation. Currently in sinus. No tachycardia. The daughter also reports patient drinking a lot of water since she came home. No dysuria or retention. No diarrhea. The patient did not have a bowel movement yet. She denies any similar episodes in the past. Review of Systems General: Reports: 10 or more systems reviewed and unremarkable except in HPI and below Medications/Allergies Home Medications Medication Instructions Recorded Confirmed Last Taken Type amiodarone 200 mg tablet 200 mg PO DAILY@0900 tab 10/31/19 02/11/21 02/11/21 History apixaban 5 mg tablet 5 mg PO BID@0900,209910/31/19 02/11/21 02/11/21 History citalopram 20 mg tablet 20 mg PO DAILY@0900 tab 10/31/19 02/11/21 02/11/21 History isosorbide mononitrate 10 mg tablet 10 mg PO DAILY@0900 tab 10/31/19 02/11/21 02/11/21 History lovastatin 20 mg tablet 20 mg PO DAILY@0900 tab 10/31/19 02/11/21 02/11/21 History magnesium 250 mg tablet 250 mg PO DAILY@0900 tab 10/31/19 02/11/21 02/11/21 History metoprolol tartrate 25 mg tablet 12.5 mg PO BID@0900,2100 10/31/19 02/11/21 02/11/21 History tamsulosin 0.4 mg capsule 0.4 mg PO DAILY@0900 cap 10/31/19 02/11/21 02/11/21 History acetaminophen 650 mg 650 mg PO Q12H PRN #60 tab 12/17/19 02/11/21 02/11/21 Rx tablet,extended release amlodipine 5 mg tablet 5 mg PO DAILY@0900 tab 06/23/20 02/11/21 02/11/21 History furosemide 20 mg tablet 20 mg PO DAILY@0900 tab 06/23/20 02/11/21 02/11/21 History losartan 100 mg tablet 100 mg PO DAILY@0900 tab 06/23/20 02/11/21 02/11/21 History potassium chloride 10 mEq 10 meq PO DAILY@0900 tab 06/23/20 02/11/21 02/11/21 History tablet,extended release mupirocin 2 % topical ointment 1 applic TOPICAL BID #22 g 02/02/21 02/11/21 02/06/21 Rx oxycodone 5 mg PO Q4H PRN 7 Days #40 tab 02/10/21 02/11/21 Unknown Rx Bedside Commode #1 ea 02/11/21 02/11/21 Unknown Rx Allergies Allergy/AdvReac Type Severity Reaction Status Date / Time Iodine and Iodide Containing Allergy Unknown Verified 02/11/21 16:56 Produc penicillin G Allergy rash Verified 02/11/21 16:56 Sulfa (Sulfonamide Allergy rash Verified 02/11/21 16:56 Antibiotics) PFSH Acute PFSH: Medical History (Updated 02/11/21 @ 19:54 by Millie Ortiz MD) Arthritis Essential hypertension GERD (gastroesophageal reflux disease) History of anemia Hyperlipidemia Persistent atrial fibrillation Sick sinus syndrome Tachy-yun syndrome Surgical History (Updated 02/10/21 @ 08:16 by Andrea Fowler MD) History of back surgery Family History Father CAD (coronary artery disease) Lung disease Mother Dementia Hypertension Sister Dementia Other Diabetes Social History Smoking and tobacco status: never smoked Alcohol intake: never Vitals/I&O/Wt Last Vital Signs Temp 99.7 F H 02/11/21 16:42 Pulse 65 02/11/21 19:30 Resp 19 H 02/11/21 19:30 BP 162/42 02/11/21 19:30 Pulse Ox 94 02/11/21 19:30 02/11/21 02/11/21 02/11/21 06:59 14:59 22:59 Intake Total 150 / 150 Balance 150 / 150 Weight last 48 hrs Weight 77.111 kg Physical Exam Narrative: EXAM NARRATIVE: The patient is awake. Confused and disoriented. Follows simple instructions. No acute distress Skin is warm and dry. Moist mucous membranes Eyes PERRL, extraocular muscles are intact no facial asymmetry No dysarthria or aphasia Neck is supple no JVD Lungs bibasilar crackles. No respiratory distress with supplemental oxygen Heart S1, S2, regular Abdomen soft, nontender, bowel sounds are present Extremities bilateral pedal edema. No cyanosis no calf tenderness bilaterally No focal weakness. Data : 02/11/21 18:49 02/11/21 18:49 Other Labs: Laboratory Results WBC 12.4 10^3/uL (4.0-10.0) H 02/11/21 18:49 RBC 3.70 10^6/uL (4.1-5.3) L 02/11/21 18:49 Hgb 10.6 g/dL (11.5-15.3) L 02/11/21 18:49 Hct 34.3 % (37.0-47.0) L 02/11/21 18:49 MCV 92.7 fL (81-99) 02/11/21 18:49 MCH 28.6 pg (28.0-34.0) 02/11/21 18:49 MCHC 30.9 g/dL (30.0-36.0) 02/11/21 18:49 RDW 13.3 % (12.1-15.1) 02/11/21 18:49 Plt Count 216 10^3/cmm (130-400) 02/11/21 18:49 MPV 9.8 fL (7.4-10.4) 02/11/21 18:49 Neut % (Auto) 76.9 % 02/11/21 18:49 Lymph % (Auto) 10.9 % 02/11/21 18:49 [place] % (Auto) 9.6 % 02/11/21 18:49 Eos % (Auto) 1.5 % 02/11/21 18:49 Baso % (Auto) 0.4 % 02/11/21 18:49 Neut # (Auto) 9.50 10^3/uL (1.8-7.7) H 02/11/21 18:49 Lymph # (Auto) 1.3 10^3/uL (0.8-4.8) 02/11/21 18:49 [place] # (Auto) 1.2 10^3/uL (0.2-0.9) H 02/11/21 18:49 Eos # (Auto) 0.2 10^3/uL (0.0-0.8) 02/11/21 18:49 Baso # (Auto) 0.1 10^3/uL (0.0-0.1) 02/11/21 18:49 Nucleated RBC % (auto) 0 % 02/11/21 18:49 Nucleated RBCs # 0.0 /100WBC 02/11/21 18:49 D-Dimer 0.65 ug/mIFEU (0-0.59) H 02/11/21 19:24 Sodium 126 mmol/L (136-145) L 02/11/21 18:49 Potassium 4.3 mmol/L (3.5-5.1) 02/11/21 18:49 Chloride 96 mmol/L (98-107) L 02/11/21 18:49 Carbon Dioxide 20 mmol/L (22-29) L 02/11/21 18:49 Anion Gap 14.3 (5-19) 02/11/21 18:49 BUN 27 mg/dL (8-23) H 02/11/21 18:49 Creatinine 1.5 mg/dL (0.5-0.9) H 02/11/21 18:49 GFR Calculation Not Reportable 02/11/21 18:49 Glucose 109 mg/dL (65-115) 02/11/21 18:49 Calculated Osmolality 268 mOsm/kg (285-295) L 02/11/21 18:49 Lactate 2.5 mmol/L (0.5-2.2) H 02/11/21 18:49 Calcium 8.1 mg/dL (8.5-10.5) L 02/11/21 18:49 Total Bilirubin 0.4 mg/dL (0.15-1.2) 02/11/21 18:49 AST 63 U/L (0-32) H 02/11/21 18:49 ALT 14 U/L (0-33) 02/11/21 18:49 Alkaline Phosphatase 89 IU/L (35-105) 02/11/21 18:49 Troponin T Baseline 51 ng/L (0-10) H 02/11/21 18:49 NT-Pro-B Natriuret Pep 3433 pg/mL (0-450) H 02/11/21 18:49 Total Protein 5.1 g/dL (6.6-8.7) L 02/11/21 18:49 Albumin 3.5 g/dL (3.5-5.2) 02/11/21 18:49 Globulin 1.6 g/dL (1.3-4.6) 02/11/21 18:49 Urine Color Yellow (Yellow) 02/11/21 17:56 Urine Appearance Clear (CLEAR) 02/11/21 17:56 Urine pH 5 (5-7) 02/11/21 17:56 Ur Specific [place] 1.005 (1.005-1.030) 02/11/21 17:56 Urine Protein Neg (Negative) 02/11/21 17:56 Urine Glucose (UA) Norm (Normal) 02/11/21 17:56 Urine Ketones Negative (Negative) 02/11/21 17:56 Urine Blood 2+ (Negative) H 02/11/21 17:56 Urine Nitrate Negative (Negative) 02/11/21 17:56 Urine Bilirubin Neg (Negative) 02/11/21 17:56 Urine Urobilinogen Norm mg/dL (Negative) 02/11/21 17:56 Ur Leukocyte Esterase Negative (Negative) 02/11/21 17:56 Urine RBC 0-4 /hpf (0-2) H 02/11/21 17:56 Urine WBC 0-4 /hpf (0-5) H 02/11/21 17:56 Ur Squamous Epith Cells 0-4 /hpf (0-5) H 02/11/21 17:56 Amorphous Sediment Not Reportable 02/11/21 17:56 Urine Bacteria Trace /hpf (NONE) 02/11/21 17:56 SARS-CoV-2 Ag (Rapid) Negative (Negative) 02/11/21 18:[address] 02/11/21 17:01 IMPRESSION: 1. No acute intracranial abnormality. 2. Progressive left frontal encephalomalacia compared to the prior exam. Radiation Dose CTDIVOL = (mGy): DLP = 875.26 (mGy-cm) Micro: Microbiology 02/11/21 19:24 Blood Culture - Preliminary Blood SPECIMEN COLLECTED 02/11/21 18:49 Blood Culture - Preliminary Blood SPECIMEN COLLECTED A&P Additional A&P Information 81-year-old female with past medical history of hypertension, atrial fibrillation, possible dementia, chronic mild hyponatremia, probable CKD, anemia, recent hospitalization for right total hip arthroplasty who was discharged yesterday now coming back with altered mental status. Acute metabolic encephalopathy probably due to hyponatremia. Also it is possible that she has some owning due to recent surgery and medications. Supportive care. Fall precautions. One-on-one for now. If her behavior becomes dangerous to herself will consider antipsychotic medications. PT OT eval and treat. Will ask case management to assess her discharge needs. Hyponatremia probably secondary to fluid overload and excessive amount of free water intake. It is also possible that she missed couple of doses of furosemide due to her recent surgery. We will give her furosemide and order initial test to rule out SIADH and hypothyroidism. We will check her chemistry panel every 4 hours to adjust the treatments and prevent rapid correction of sodium. Fluid overload. CHF? Mild. Will manage it with furosemide. We will continue home beta-hamzah and ARB. Will order echo. Mild fever probably postoperative. Might have mild atelectasis as well. Incentive spirometry. We will check her procalcitonin in the morning. History of A. fib. We will continue her home medications including Eliquis. Mild elevation of troponin probably secondary to fluid overload and possible CHF. No chest pain no acute ischemic changes on EKG. Will monitor troponin. Will defer baby aspirin. Anemia. Probably chronic. Some worsening could be due to expected acute blood loss related to surgery. Will monitor. Hypertension. Will resume home medications. Will consider as needed medications if remains elevated. Mild acidosis/increased lactate. Again I do not see any convincing evidence of infection at this time. We will closely monitor her. No antibiotics at this time. CKD. We will continue monitoring her renal function. DVT prophylaxis. She is on Eliquis. CODE STATUS. She is DNR according to her daughter. The plan of care was discussed with the patient's daughter. She verbalized understanding and agreement with Attestations Medical Necessity Statement*: Based on my assessment of her current condition I expect that the patient will spend more than 2 midnights in the hospital. Coding Level of Care Code Acute Inbound Telemarketer for [facility] Palacios
[2021-02-11] MEDS: FUROsemide 10 mg/mL SDV 4mL 40 MG IVP (21:12)
[2021-02-11 21:28] LABS: Anion Gap 15.2 (5-19); Blood Urea Nitrogen 28 mg/dL (8-23); Calcium 8.3 mg/dL (8.5-10.5); Carbon Dioxide 21 mmol/L (22-29); Chloride 96 mmol/L (98-107); Glucose 94 mg/dL (65-115); Osmolality Calculated 271 mOsm/kg (285-295); Potassium 4.2 mmol/L (3.5-5.1); Sodium 128 mmol/L (136-145); Thyroid Stimulating Hormone 1.99 uIU/mL (0.27-4.20)
[2021-02-11 21:36] VITALS: BP 154/80; PULSE 66; RESP 18; TEMP 36.9; O2SAT 90
[2021-02-11] MEDS: metoprolol tartrate 25 mg Tablet 12.5 MG PO (21:53)
[2021-02-11] MEDS: apixaban 5 mg Tablet PO (21:54)
[2021-02-11 22:33] LABS: Troponin 5 2HR 46.91 ng/L (0-10)
[2021-02-11 22:34] LABS: Troponin 5 2HR Delta -4.09 ABS# (0-10)
[2021-02-12] VITALS (14 sets, daily range): BP systolic 112–147; BP diastolic 51–90; PULSE 60–88; RESP 1–24; TEMP 36.3–37; O2SAT 90–94
[2021-02-12 01:06] LABS: Urine Random Sodium 60 mmol/L
[2021-02-12 01:23] LABS: Blood Urea Nitrogen 27 mg/dL (8-23); Calcium 8.3 mg/dL (8.5-10.5); Carbon Dioxide 21 mmol/L (22-29); Chloride 97 mmol/L (98-107); Glucose 91 mg/dL (65-115); Osmolality Calculated 271 mOsm/kg (285-295); Sodium 128 mmol/L (136-145)
[2021-02-12 01:24] LABS: Troponin 5 6HR 47.47 ng/L (0-10)
[2021-02-12 01:29] LABS: Troponin 5 6HR Delta 0.56 ng/L (0-12)
[2021-02-12 06:10] LABS: Basophils % 0.3 %; Eosinophils # 0.2 10^3/uL (0.0-0.8); Eosinophils % 1.5 %; Hematocrit 31.1 % (37.0-47.0); Hemoglobin 9.6 g/dL (11.5-15.3); Lymphocytes % 10.5 %; Mean Corpuscular HGB Conc 30.9 g/dL (30.0-36.0); Mean Corpuscular Hemoglobin 27.9 pg (28.0-34.0); Mean Corpuscular Volume 90.4 fL (81-99); Mean Platelet Volume 10.2 fL (7.4-10.4); Monocytes # 0.7 10^3/uL (0.2-0.9); Monocytes % 7.4 %; Neutrophils # 7.77 10^3/uL (1.8-7.7); Neutrophils % 79.7 %; Nucleated Red Blood Cells % 0 %; Platelet Count 215 10^3/cmm (130-400); Red Blood Count 3.44 10^6/uL (4.1-5.3); Red Cell Distribution Width 13.4 % (12.1-15.1); White Blood Count 9.8 10^3/uL (4.0-10.0)
[2021-02-12 06:28] LABS: Lactic Sepsis W/Reflex 1.4 mmol/L (0.5-2.2)
[2021-02-12 06:37] LABS: Troponin T (5th) Once 50 ng/L (0-10)
[2021-02-12 06:38] LABS: NT Pro B Type Natriuretic Pept 5042 pg/mL (0-450); Procalcitonin 0.39 ng/mL (0-0.5)
[2021-02-12 06:40] LABS: Magnesium 1.9 mg/dL (1.7-2.3)
[2021-02-12 06:51] LABS: Anion Gap 16.8 (5-19); Blood Urea Nitrogen 26 mg/dL (8-23); Calcium 8.4 mg/dL (8.5-10.5); Carbon Dioxide 20 mmol/L (22-29); Chloride 98 mmol/L (98-107); Glucose 80 mg/dL (65-115); Osmolality Calculated 276 mOsm/kg (285-295); Potassium 3.8 mmol/L (3.5-5.1); Sodium 131 mmol/L (136-145)
--- NOTE | 2021-02-12 08:30 | USCV_ITS ---
Mebla Leroy Age: 81 Gender: F : 1940 Exam Date: 02/12/2021 05:55 Ordering Phys: Zaid Rincon MD Technologist: Ele Alexandra Exam Location: [facility] [place] Indication: CHF BP: 129 / 75 HR: 63 Rhythm: Sinus Technical Quality: Adequate MEASUREMENTS (Male / Female) Normal Values 2D ECHO LV Diastolic Diameter PLAX 4.0 cm 4.2 - 5.9 / 3.9 - 5.3 cm LV Systolic Diameter PLAX 2.6 cm LV Chamber Size 2.7 cm IVS Diastolic Thickness 1.3 cm 0.6 - 1.0 / 0.6 - 0.9 cm IVS Systolic Thickness 2.1 cm LVPW Diastolic Thickness 1.2 cm 0.6 - 1.0 / 0.6 - 0.9 cm LVPW Systolic Thickness 1.8 cm RV Chamber Size 2.8 cm LVOT Diameter 2.0 cm LV Ejection Fraction 2D Teich 65.5 % LV Ejection Fraction MOD 2C 73.4 % LV Ejection Fraction 2C AL 76.9 % LA Diameter 3.5 cm LA Width 2.9 cm LA Height 4.3 cm RA Width 3.1 cm RA Height 2.7 cm Aorta at Sinotubular Diameter 3.1 cm M-MODE LV Diastolic Diameter MM 4.2 cm 4.2 - 5.9 / 3.9 - 5.3 cm LV Systolic Diameter MM 2.3 cm LV Ejection Fraction MM Teich 77.8 % IVS Diastolic Thickness MM 0.8 cm 0.6 - 1.0 / 0.6 - 0.9 cm IVS Systolic Thickness MM 1.5 cm LVPW Diastolic Thickness MM 1.1 cm 0.6 - 1.0 / 0.6 - 0.9 cm LVPW Systolic Thickness MM 1.4 cm Aortic Annulus Diameter 3.4 cm LA Ao Ratio MM 1.2 MV E Point Septal Separation 0.3 cm DOPPLER AV Peak Velocity 145.0 cm/s LVOT Peak Velocity 98.0 cm/s AV Area Cont Eq vti 2.8 cm squared AV Area Cont Eq pk 2.2 cm squared MV Area PHT 6.3 cm squared Mitral E to A Ratio 1.9 MV E' Velocity 65.5 cm/s Mitral E to MV E' Ratio 10.8 Mitral E to LV E' Lateral Ratio 11.1 Mitral E to LV E' Septal Ratio 10.6 TR Peak Velocity 301.3 cm/s TR Peak Gradient 36.3 mmHg TR Mean Velocity 230.7 cm/s TR Mean Gradient 24.1 mmHg TR Velocity Time Integral 107.2 cm TV Peak E Velocity 97.0 cm/s PV Peak Velocity 55.0 cm/s RV Acceleration Time 0.2 s RV Ejection Time 0.4 s RV AcT/ET 0.5 FINDINGS Left Ventricle Normal left ventricular size, systolic function and mildly increased wall thickness, with no regional wall motion abnormalities. Left ventricular ejection fraction is estimated at 70-75 %. Mild concentric left ventricular hypertrophy. Grade II diastolic dysfunction, moderately elevated filling pressures. Right Ventricle Normal right ventricular size and systolic function. Right ventricular systolic pressure 29 mmHg. Pacemaker wire visualized in the right ventricle. Right Atrium Normal right atrial size. Right atrial pressure estimated at 3 mmHg. Left Atrium Mildly increased left atrial size. Mitral Valve Mild mitral annular calcification. Mildly thickened mitral valve. No mitral valve stenosis. Mild mitral valve regurgitation. Aortic Valve Aortic valve not well visualized. No aortic valve stenosis. No aortic valve regurgitation. Tricuspid Valve Structurally normal tricuspid valve. No tricuspid valve stenosis. Trace tricuspid valve regurgitation. Pulmonic Valve Pulmonic valve not well visualized. No pulmonary valve stenosis. Trace pulmonary valve regurgitation. Pericardium No pericardial effusion. Aorta Normal-sized inferior vena cava. CONCLUSIONS 1. Normal left ventricular size, systolic function and mildly increased wall thickness, with no regional wall motion abnormalities. Left ventricular ejection fraction is estimated at 70-75 %. Mild concentric left ventricular hypertrophy. Grade II diastolic dysfunction, moderately elevated filling pressures. 2. Normal right ventricular size and systolic function. 3. Pulmonary artery pressure estimated 29 mmHg. 4. Mildly increased left atrial size. 5. No significant change when compared to previous echocardiogram dated 08/17/2018. Freda Cardenas MD (Electronically Signed) Final Date: 12 February 2021 13:21 S
[2021-02-12 09:32] LABS: Anion Gap 10.9 (5-19); Blood Urea Nitrogen 24 mg/dL (8-23); Calcium 8.5 mg/dL (8.5-10.5); Carbon Dioxide 23 mmol/L (22-29); Chloride 98 mmol/L (98-107); Glucose 116 mg/dL (65-115); Osmolality Calculated 271 mOsm/kg (285-295); Potassium 3.9 mmol/L (3.5-5.1); Sodium 128 mmol/L (136-145)
[2021-02-12] MEDS: acetaminophen 325 mg Tablet 650 MG PO ×2 (10:43→18:11)
[2021-02-12] MEDS: FUROsemide 10 mg/mL SDV 4mL 40 MG IVP (10:43)
[2021-02-12] MEDS: docusate sodium 100 mg Capsule PO ×2 (10:44→18:11)
[2021-02-12] MEDS: losartan 50 mg Tablet 100 MG PO (10:44)
[2021-02-12] MEDS: amiodarone 200 mg Tablet PO (10:44)
[2021-02-12] MEDS: apixaban 5 mg Tablet PO ×2 (10:44→20:50)
[2021-02-12] MEDS: isosorbide mononitrate 20 mg Tablet 10 MG PO (10:45)
[2021-02-12] MEDS: atorvastatin 40 mg Tablet 20 MG PO (10:45)
[2021-02-12] MEDS: metoprolol tartrate 25 mg Tablet 12.5 MG PO ×2 (10:45→20:48)
--- NOTE | 2021-02-12 17:21 | P.PN_ITS ---
Subjective Subjective: Interval history: Admitted overnight. Family at bedside. On examination sitting comfortably in bed having her meals. Patient seems to be AO x3 at present as she is able to answer all the questions properly and able to have complete conversation. As per family patient is doing a lot better but she tends to do better in the mornings than at night. She denies any nausea, burning, headache. States she is having any pain in the hip. Work appropriately with physical therapy today. Vitals/I&O/Wt Last Vital Signs Temp 98.3 F 02/12/21 14:58 Pulse 88 02/12/21 15:46 Resp 18 02/12/21 15:46 BP 114/57 02/12/21 14:58 Pulse Ox 92 02/12/21 15:46 02/12/21 02/12/21 02/12/21 06:59 14:59 22:59 Intake Total 480 / 480 Output Total 1200 / 1200 Balance -1200 / -50 480 / 480 Weight last 48 hrs Weight 77.111 kg Physical Exam Narrative: EXAM NARRATIVE: General: No acute distress, AO x3 HEENT: PERRLA, pupils bilaterally equal and reactive Chest: Normal vesicular breath sounds, no added sounds, equal good air entry bilaterally CVS: S1-S2 regular, no murmurs, no tachycardia, no gallops, no rubs Abdomen: Soft, nontender, no organomegaly, bowel sounds present Neuro: No focal deficits, no facial deformity, AO x3, power 5/5 in all limbs Extremities: Hip surgically bandaged without any soakage. Data : 02/12/21 05:56 02/12/21 09:00 Micro: Microbiology 02/11/21 19:24 Blood Culture - Preliminary Blood SPECIMEN COLLECTED 02/11/21 18:49 Blood Culture - Preliminary Blood SPECIMEN COLLECTED A&P Additional A&P Information 81-year-old female with past medical history of hypertension, atrial fibrillation, possible dementia, chronic mild hyponatremia, probable CKD, anemia, recent hospitalization for right total hip arthroplasty who was discharged yesterday now coming back with altered mental status. Acute metabolic encephalopathy: Probably due to hyponatremia along with possible that she has some sundowning due to recent surgery and medications. No focal weakness on examination. Supportive care. Fall precautions. One-on-one for now. If her behavior becomes dangerous to herself will consider antipsychotic medications. PT OT eval and treat. Will ask case management to assess her discharge needs. Hyponatremia: Probably secondary to fluid overload and excessive amount of free water intake. It is also possible that she missed couple of doses of furosemide due to her recent surgery. Osmolality 271, urine sodium 60. Sodium level 128 last check at 9 AM. Recheck in evening. Start patient on salt tablet twice daily. Continue with Lasix IV 40 mg daily for now. Check A1c, lipid panel. TSH within normal limits. Fluid overload: Diastolic heart failure as per last echocardiogram. CHF? Mild. Will manage it with furosemide. We will continue home beta-hamzah and ARB. Will order echo. Mild fever probably postoperative. Might have mild atelectasis as well. Incentive spirometry. We will check her procalcitonin in the morning. History of A. fib. We will continue her home medications including Eliquis. Anemia. Probably chronic. Some worsening could be due to expected acute blood loss related to surgery. Will monitor. Hypertension. Will resume home medications. Will consider as needed medications if remains elevated. Mild acidosis/increased lactate. Again I do not see any convincing evidence of infection at this time. We will closely monitor her. No antibiotics at this time. CKD. We will continue monitoring her renal function. Creatinine currently at baseline of 1.5. DVT prophylaxis. She is on Eliquis. CODE STATUS. She is DNR according to her daughter. Regular diet. The plan of care was discussed with the patient's daughter. She verbalized understanding and agreement with treatment plan. We discussed that patient sy mptoms are most likely a combination of hyponatremia, sundowning because of recent hospitalization and recent use of pain medication anesthesia for the surgery. We also discussed most likely some of the symptoms will go away as sodium levels improve but she might not be able to back her baseline to sundowning goes away which could take some time. Attestations Medical Necessity Statement*: Requires further hospitalization for management of acute metabolic encephalopathy secondary to hyponatremia versus sundowning. Time Spent in Patient Care: Greater than 35 minutes (>than 50% of time spent in counselling and/or direct pt care on unit) . Coding Level of Care Code Acute Head Buyer Tobacco for Adriano Palacios
[2021-02-12] MEDS: sodium chloride 1 gm Tablet PO (18:11)
[2021-02-12] MEDS: bisacodyl 5 mg Tablet 10 MG PO (18:11)
[2021-02-12 19:28] LABS: Anion Gap 10.8 (5-19); Blood Urea Nitrogen 26 mg/dL (8-23); Calcium 8.1 mg/dL (8.5-10.5); Carbon Dioxide 24 mmol/L (22-29); Chloride 100 mmol/L (98-107); Glucose 105 mg/dL (65-115); Iron 9 ug/dL (37-145); Osmolality Calculated 277 mOsm/kg (285-295); Percent Saturation 3.7 % (20-50); Potassium 3.8 mmol/L (3.5-5.1); Sodium 131 mmol/L (136-145); Total Iron Binding Capacity 237 mcg/dl; Unsaturated Iron Binding 228 ug/dL (112-347)
[2021-02-13] VITALS (11 sets, daily range): BP systolic 102–137; BP diastolic 62–86; PULSE 60–76; RESP 16–20; TEMP 36.6–37.2; O2SAT 89–97
[2021-02-13 05:48] LABS: Basophils % 0.3 %; Eosinophils # 0.2 10^3/uL (0.0-0.8); Eosinophils % 2.2 %; Hematocrit 29.8 % (37.0-47.0); Hemoglobin 9.4 g/dL (11.5-15.3); Lymphocytes % 11.7 %; Mean Corpuscular HGB Conc 31.5 g/dL (30.0-36.0); Mean Corpuscular Hemoglobin 28.2 pg (28.0-34.0); Mean Corpuscular Volume 89.5 fL (81-99); Mean Platelet Volume 10.4 fL (7.4-10.4); Monocytes # 0.9 10^3/uL (0.2-0.9); Monocytes % 9.8 %; Neutrophils # 6.52 10^3/uL (1.8-7.7); Neutrophils % 75.5 %; Nucleated Red Blood Cells % 0 %; Platelet Count 247 10^3/cmm (130-400); Red Blood Count 3.33 10^6/uL (4.1-5.3); Red Cell Distribution Width 13.5 % (12.1-15.1); White Blood Count 8.6 10^3/uL (4.0-10.0)
[2021-02-13 06:12] LABS: Alanine Aminotransferase 14 U/L (0-33); Alkaline Phosphatase 87 IU/L (35-105); Anion Gap 11.6 (5-19); Aspartate Amino Transferase 59 U/L (0-32); Blood Urea Nitrogen 23 mg/dL (8-23); Calcium 8.2 mg/dL (8.5-10.5); Carbon Dioxide 24 mmol/L (22-29); Chloride 101 mmol/L (98-107); Cholesterol 96 mg/dL (0-200); Globulin 2.2 g/dL (1.3-4.6); Glucose 89 mg/dL (65-115); HDL Cholesterol 48 mg/dL (60-100); LDL Cholesterol Calculated 36 mg/dL (50-129); Osmolality Calculated 279 mOsm/kg (285-295); Potassium 3.6 mmol/L (3.5-5.1); Sodium 133 mmol/L (136-145); Total Bilirubin 0.6 mg/dL (0.15-1.2); Total Protein 5.2 g/dL (6.6-8.7); Triglycerides 58 mg/dL (0-150); VLDL Cholestrol Calculation 12 mg/dL (0-30)
[2021-02-13 06:33] LABS: Estmated Average Glucose 97
[2021-02-13] MEDS: metoprolol tartrate 25 mg Tablet 12.5 MG PO (09:27)
[2021-02-13] MEDS: apixaban 5 mg Tablet PO (09:27)
[2021-02-13] MEDS: losartan 50 mg Tablet PO (09:27)
[2021-02-13] MEDS: docusate sodium 100 mg Capsule PO (09:27)
[2021-02-13] MEDS: sodium chloride 1 gm Tablet PO (09:27)
[2021-02-13] MEDS: acetaminophen 325 mg Tablet 650 MG PO (09:27)
[2021-02-13] MEDS: amiodarone 200 mg Tablet PO (09:27)
[2021-02-13] MEDS: atorvastatin 40 mg Tablet 20 MG PO (09:28)
[2021-02-13] MEDS: FUROsemide 10 mg/mL SDV 4mL 40 MG IVP (09:28)
[2021-02-13] MEDS: isosorbide mononitrate 20 mg Tablet 10 MG PO (09:33)
--- NOTE | 2021-02-13 13:22 | P.DS_ITS ---
Discharge Providers Date of Admission: 02/11/21 19:49 Date of Discharge: February 13, 2021 Attending Provider at Admission: Zaid Rincon Attending Provider at Discharge: Steven Michelle MD Primary Care Provider: Lidia Stephens Reason for Visit Reason for Visit: AMS, POST HIP SURGERY 1 WK AGO Hospital Course Hospital Course Melba Leroy is a 81 year old female Who was discharged yesterday after right total hip arthroplasty. Today she is brought back by the family to emergency room due to confusion, hallucinations, some shortness of breath. The symptoms started last night and progressively got worse. Described as moderate in intensity. The patient is awake but her responses are confused and delayed. There is no dysarthria or aphasia. However the patient is unable to follow conversations. The daughter believes that she does have some baseline dementia. She did not require any pain medications after discharge. No signs of uncontr olled pain at home or here. There was mild fever but no cough or chest pain. Mild shortness of breath. Imaging studies revealed mild pulmonary congestion. BNP is elevated. Mild elevation of troponin. EKG shows no acute ischemic changes. Atrial pacemaker, right bundle branch block. She does have history of atrial fibrillation. Currently in sinus. No tachycardia. The daughter also reports patient drinking a lot of water since she came home. No dysuria or retention. No diarrhea. The patient did not have a bowel movement yet. She denies any similar episodes in the past. She was admitted to the hospital for further further management and work-up of acute metabolic encephalopathy. Her instability is most likely from hyponatremia because she missed couple of doses of furosemide due to her surgery. She was started on IV Lasix along with salt tablets and sodium levels were checked repeatedly. Her sodium levels came up appropriately. Once sodium levels came up her mentation also improved. She has been discharged in hemodynamically stable condition with advised to take salt tablets for next 5 days and repeat sodium levels in 1 week with her primary care provider. She is advised to take regular diet, Lasix and water intake as before. Patient's care plan was discussed in detail with patient and family at bedside and they were all agreeable. Physical Exam Narrative: EXAM NARRATIVE: General: No acute distress, AO x3 HEENT: PERRLA, pupils bilaterally equal and reactive Chest: Normal vesicular breath sounds, no added sounds, equal good air entry bilaterally CVS: S1-S2 regular, no murmurs, no tachycardia, no gallops, no rubs Abdomen: Soft, nontender, no organomegaly, bowel sounds present Neuro: No focal deficits, no facial deformity, AO x3, power 5/5 in all limbs Extremities: Hip surgically bandaged without any soakage. Discharge Data Data Completed and Pending: Completed Studies During Hospitalization Category Date Time Status CT head wo con* [id number] Urgent Cat Scan 02/11/21 17:01 Completed XR chest 1V nathalia ble [id number] Urgent Exams 02/11/21 16:59 Completed CV echo complete* [id number] Urgent Ultrasound 02/12/21 08:30 Completed Pending at discharge Category Date Time Status Blood Culture Sta t Lab 02/11/21 19:24 Results Osmolality Serum Routine Lab 02/11/21 20:54 Received Osmolality Urine Routine Lab 02/11/21 20:24 Received Labs from last 24 hours 02/13/21 02/13/21 02/13/21 05:03 05:03 05:03 WBC RBC Hgb Hct MCV MCH MCHC RDW Plt Count MPV Neut % (Auto) Lymph % (Auto) [place] % (Auto) Eos % (Auto) Baso % (Auto) Neut # (Auto) Lymph # (Auto) [place] # (Auto) Eos # (Auto) Baso # (Auto) Nucleated RBC % (a uto) Nucleated RBCs # Sodium 133 L Potassium 3.6 Chloride 101 Carbon Dioxide 24 Anion Gap 11.6 BUN 23 Creatinine 1.5 H GFR Calculation Not Reportable Glucose 89 Estimat Average Gl ucose 97 Hemoglobin A1c 5.0 Calculated Osmolal ity 279 L Calcium 8.2 L Iron TIBC % Saturation Unsat Iron Binding Total Bilirubin 0.6 AST 59 H ALT 14 Alkaline Phosphata se 87 Total Protein 5.2 L Albumin 3.0 L Globulin 2.2 Triglycerides 58 Cholesterol 96 LDL Cholesterol, C alc 36 L Total VLDL Cholest sukhjinder 12 HDL Cholesterol 48 L Cholesterol/HDL Ra george 2.00 02/13/21 02/12/21 05:03 18:45 WBC 8.6 RBC 3.33 L Hgb 9.4 L Hct 29.8 L MCV 89.5 MCH 28.2 MCHC 31.5 RDW 13.5 Plt Count 247 MPV 10.4 Neut % (Auto) 75.5 Lymph % (Auto) 11.7 [place] % (Auto) 9.8 Eos % (Auto) 2.2 Baso % (Auto) 0.3 Neut # (Auto) 6.52 Lymph # (Auto) 1.0 [place] # (Auto) 0.9 Eos # (Auto) 0.2 Baso # (Auto) 0.0 Nucleated RBC % (a uto) 0 Nucleated RBCs # 0.0 Sodium 131 L Potassium 3.8 Chloride 100 Carbon Dioxide 24 Anion Gap 10.8 BUN 26 H Creatinine 1.7 H GFR Calculation Not Reportable Glucose 105 Estimat Average Gl ucose Hemoglobin A1c Calculated Osmolal ity 277 L Calcium 8.1 L Iron 9 L TIBC 237 % Saturation 3.7 L Unsat Iron Binding 228 Total Bilirubin AST ALT Alkaline Phosphata se Total Protein Albumin Globulin Triglycerides Cholesterol LDL Cholesterol, C alc Total VLDL Cholest sukhjinder HDL Cholesterol Cholesterol/HDL Ra george Addt'l Data from Hospital Stay: Laboratory Results WBC 8.6 10^3/uL (4.0- 10.0) 02/13/21 05:03 RBC 3.33 10^6/uL (4.1 -5.3) L 02/13/21 05:03 Hgb 9.4 g/dL (11.5-15 .3) L 02/13/21 05:03 Hct 29.8 % (37.0-47.0 ) L 02/13/21 05:03 MCV 89.5 fL (81-99) 02/13/21 05:03 MCH 28.2 pg (28.0-34. 0) 02/13/21 05:03 MCHC 31.5 g/dL (30.0-3 6.0) 02/13/21 05:03 RDW 13.5 % (12.1-15.1 ) 02/13/21 05:03 Plt Count 247 10^3/cmm (130 -400) 02/13/21 05:03 MPV 10.4 fL (7.4-10.4 ) 02/13/21 05:03 Neut % (Auto) 75.5 % 02/13/21 05:03 Lymph % (Auto) 11.7 % 02/13/21 05:03 [place] % (Auto) 9.8 % 02/13/21 05:03 Eos % (Auto) 2.2 % 02/13/21 05:03 Baso % (Auto) 0.3 % 02/13/21 05:03 Neut # (Auto) 6.52 10^3/uL (1.8 -7.7) 02/13/21 05:03 Lymph # (Auto) 1.0 10^3/uL (0.8- 4.8) 02/13/21 05:03 [place] # (Auto) 0.9 10^3/uL (0.2- 0.9) 02/13/21 05:03 Eos # (Auto) 0.2 10^3/uL (0.0- 0.8) 02/13/21 05:03 Baso # (Auto) 0.0 10^3/uL (0.0- 0.1) 02/13/21 05:03 Nucleated RBC % (a uto) 0 % 02/13/21 05:03 Nucleated RBCs # 0.0 /100WBC 02/13/21 05:03 D-Dimer 0.65 ug/mIFEU (0- 0.59) H 02/11/21 19:24 Sodium 133 mmol/L (136-1 45) L 02/13/21 05:03 Potassium 3.6 mmol/L (3.5-5 .1) 02/13/21 05:03 Chloride 101 mmol/L (98-10 7) 02/13/21 05:03 Carbon Dioxide 24 mmol/L (22-29) 02/13/21 05:03 Anion Gap 11.6 (5-19) 02/13/21 05:03 BUN 23 mg/dL (8-23) 02/13/21 05:03 Creatinine 1.5 mg/dL (0.5-0. 9) H 02/13/21 05:03 GFR Calculation Not Reportable 02/13/21 05:03 Glucose 89 mg/dL (65-115) 02/13/21 05:03 Estimat Average Gl ucose 97 02/13/21 05:03 Hemoglobin A1c 5.0 % (4.0-6.0) 02/13/21 05:03 Calculated Osmolal ity 279 mOsm/kg (285- 295) L 02/13/21 05:03 Lactic Acid 1.4 mmol/L (0.5-2 .2) 02/12/21 05:56 Lactate 2.5 mmol/L (0.5-2 .2) H 02/11/21 18:49 Calcium 8.2 mg/dL (8.5-10 .5) L 02/13/21 05:03 Magnesium 1.9 mg/dL (1.7-2. 3) 02/12/21 05:56 Iron 9 ug/dL (37-145) L 02/12/21 18:45 TIBC 237 mcg/dl 02/12/21 18:45 % Saturation 3.7 % (20-50) L 02/12/21 18:45 Unsat Iron Binding 228 ug/dL (112-34 7) 02/12/21 18:45 Total Bilirubin 0.6 mg/dL (0.15-1 .2) 02/13/21 05:03 AST 59 U/L (0-32) H 02/13/21 05:03 ALT 14 U/L (0-33) 02/13/21 05:03 Alkaline Phosphata se 87 IU/L (35-105) 02/13/21 05:03 Troponin T Gen 5 n g/L 50 ng/L (0-10) H 02/12/21 05:56 Troponin T Baselin e 51 ng/L (0-10) H 02/11/21 18:49 Troponin T 120 Min douglas 46.91 ng/L (0-10) H 02/11/21 20:54 Delta Troponin T -4.09 ABS# (0-10) L 02/11/21 20:54 Troponin T Hi Sens 6Hr 47.47 ng/L (0-10) H 02/11/21 00:54 Troponin T Hi Sens 6Hr Delta 0.56 ng/L (0-12) 02/11/21 00:54 NT-Pro-B Natriuret Pep 5042 pg/mL (0-450 ) H 02/12/21 05:56 Total Protein 5.2 g/dL (6.6-8.7 ) L 02/13/21 05:03 Albumin 3.0 g/dL (3.5-5.2 ) L 02/13/21 05:03 Globulin 2.2 g/dL (1.3-4.6 ) 02/13/21 05:03 Triglycerides 58 mg/dL (0-150) 02/13/21 05:03 Cholesterol 96 mg/dL (0-200) 02/13/21 05:03 LDL Cholesterol, C alc 36 mg/dL (50-129) L 02/13/21 05:03 Total VLDL Cholest sukhjinder 12 mg/dL (0-30) 02/13/21 05:03 HDL Cholesterol 48 mg/dL (60-100) L 02/13/21 05:03 Cholesterol/HDL Ra george 2.00 mg/dL (0.0-4 .40) 02/13/21 05:03 Procalcitonin 0.39 ng/mL (0-0.5 ) 02/12/21 05:56 TSH 1.99 uIU/mL (0.27 -4.20) 02/11/21 20:54 Urine Color Yellow (Yellow) 02/11/21 17:56 Urine Appearance Clear (CLEAR) 02/11/21 17:56 Urine pH 5 (5-7) 02/11/21 17:56 Ur Specific Gravit y 1.005 (1.005-1.0 30) 02/11/21 17:56 Urine Protein Neg (Negative) 02/11/21 17:56 Urine Glucose (UA) Norm (Normal) 02/11/21 17:56 Urine Ketones Negative (Negati ve) 02/11/21 17:56 Urine Blood 2+ (Negative) H 02/11/21 17:56 Urine Nitrate Negative (Negati ve) 02/11/21 17:56 Urine Bilirubin Neg (Negative) 02/11/21 17:56 Urine Urobilinogen Norm mg/dL (Negat noam) 02/11/21 17:56 Ur Leukocyte Justa ase Negative (Negati ve) 02/11/21 17:56 Urine RBC 0-4 /hpf (0-2) H 02/11/21 17:56 Urine WBC 0-4 /hpf (0-5) H 02/11/21 17:56 Ur Squamous Epith Cells 0-4 /hpf (0-5) H 02/11/21 17:56 Amorphous Sediment Not Reportable 02/11/21 17:56 Urine Bacteria Trace /hpf (NONE) 02/11/21 17:56 Ur Random Sodium 60 mmol/L 02/12/21 00:01 SARS-CoV-2 Ag (Rap id) Negative (Negati ve) 02/11/21 18:52 Impressions Chest X-Ray 02/11/21 16:59 Impression: Atherosclerosis. Head CT 02/11/21 17:01 IMPRESSION: 1. No acute intracranial abnormality. 2. Progressive left frontal encephalomalacia compared to the prior exam. Radiation Dose CTDIVOL = (mGy): DLP = 875.26 (mGy-cm) Vitals: Last Vital Signs Temp 98.9 F 02/13/21 12:00 Pulse 76 02/13/21 12:00 Resp 16 02/13/21 12:00 BP 126/68 02/13/21 12:00 Pulse Ox 97 02/13/21 12:00 Discharge Plan Discharge Patient Disposition: Home Health Service Condition: Stable Prescriptions: New sodium chloride 1 gram Tablet 1 g PO BID 5 Days Qty: 10 RF: 0 losartan 50 mg Tablet 50 mg PO DAILY@0900 Qty: 30 RF: 0 Continued amiodarone 200 mg tablet 200 mg PO DAILY@0900 RF: 0 Eliquis 5 mg tablet 5 mg PO BID@0900,2100 RF: 0 amlodipine 5 mg tablet 5 mg PO DAILY@0900 RF: 0 potassium chloride 10 mEq tablet extended release 10 meq PO DAILY@0900 RF: 0 furosemide 20 mg tablet 20 mg PO DAILY@0900 RF: 0 lovastatin 20 mg tablet 20 mg PO DAILY@0900 RF: 0 isosorbide mononitrate 10 mg tablet 10 mg PO DAILY@0900 RF: 0 citalopram [Celexa] 20 mg tablet 20 mg PO DAILY@0900 RF: 0 metoprolol tartrate 25 mg tablet 12.5 mg PO BID@0900,2100 RF: 0 tamsulosin [Flomax] 0.4 mg capsule 0.4 mg PO DAILY@0900 RF: 0 magnesium 250 mg tablet 250 mg PO DAILY@0900 RF: 0 acetaminophen 650 mg tablet extended release 650 mg PO Q12H PRN (Reason: hypertension) Qty: 60 RF: 6 mupirocin 2 % ointment 1 applic topical BID Qty: 22 RF: 0 (DME) Bedside Commode See Rx Instructions .Route .MEDSUPPLY Qty: 1 RF: 0 oxycodone 5 mg Tablet 5 mg PO Q4H PRN (Reason: Moderate Pain) 7 Days Qty: 40 RF: 0 Discontinued losartan 100 mg tablet 100 mg PO DAILY@0900 RF: 0 Discharge Orders: Discharge Order (Routine); Ordered 02/13/21 Ordered By: Steven Michelle Referrals: Lidia Stephens PA [Primary Care Provider] - 4-7 days Discharge Diet: Regular Discharge Activity: Resume usual activity and Increase activity as tolerated Patient Instructions: Opioid Safety Activity Restrictions/Additional Instructions: Recheck sodium in 1 week. Follow up with PCP in 1 week. Take salt tabs for 5 more days. Discharge Attestations Time Spent in Discharge Care*: greater than 30 min Specific Discharge Activities: educating patient, educating and/or supporting family/caregiver, discussing with protective services case worker/social workers/dc planners, documenting/other paperwork and evaluating patient/reviewing data Status at Discharge: Cognitive status at discharge: cognitively intact , Behavioral status at discharge: cooperative , Functional status at discharge: uses cane/walker Overall status at discharge: patient is back to baseline Quality Metrics Clinical Quality Measures During this hospital stay, did patient experience: None Coding Level of Care Code Acute [facility] DC note
--- NOTE | 2021-02-13 14:02 | PC.CHAP ---
Pastoral Care Encounter/Spiritual Assessment Type of Contact [] Declined crop specialist visit [] Patient/Family/Request visit [] Outpatient visit [] Follow-up visit [] Physician referral [] Code/Alert [] Routine visit [] Staff referral [] Actively dying [] Patient sleeping [] Family support [] [] Out of room [] Palliative care [] [] Receiving care in room [] Pre-surgical visit [] Trauma [] Long length of stay [] ICU visit [] Other: Relational/Emotional Strength [] Patient feels connected with others/family/visitors/staff [] Distress [] Loneliness/isolation [] Abandonment Spirituality of Patient [] Person of Lor [] Attends Shinto of their Lor [] Believes in Prayer [] Reads Bible or Evangelical materials [] There are Spiritual issues to be addressed Contact Lens Technician Interventions [] Prayer [] Active listening [] Non-anxious presence [] Spiritual/emotional support [] Crisis/trauma care [] Spiritual counseling [] Bereavement support [] Provided bereavement packet [] Provided Bible/devotional materials [] Provided toy/stuffed animal, coloring book to patient or family member [] Provided Communion [] Anointing/Sanborn [] Salvation [] Completed spiritual assessment [] Other: Impact on Illness or Injury [] Angry [] Fearful [] Anxious [] Often cries [] Exhaustion [] Unable to work [] Unable to attend taoist [] Unable to walk/stand [] Unable to read [] Unable to drive [] Unable to eat/drink [] Unable to sleep [] Unable to be with family [] Patient intubated [] Other: Summary Time spent with patient Pastoral Care Encounter/Spiritual Assessment Type of Contact [] Declined crop specialist visit [] Patient/Family/Request visit [] Outpatient visit [] Follow-up visit [] Physician referral [] Code/Alert [xx] Routine visit [] Staff referral [] Actively dying [] Patient sleeping [] Family support [] [] Out of room [] Palliative care [] [] Receiving care in room [] Pre-surgical visit [] Trauma [] Long length of stay [] ICU visit [] Other: Relational/Emotional Strength [xx] Patient feels connected with others/family/visitors/staff [] Distress [] Loneliness/isolation [] Abandonment Spirituality of Patient [xx] Person of Lor [xx] Attends Shinto of their Lor [xx] Believes in Prayer [] Reads Bible or Evangelical materials [] There are Spiritual issues to be addressed Contact Lens Technician Interventions [] Prayer [] Active listening [] Non-anxious presence [] Spiritual/emotional support [] Crisis/trauma care [] Spiritual counseling [] Bereavement support [] Provided bereavement packet [] Provided Bible/devotional materials [] Provided toy/stuffed animal, coloring book to patient or family member [] Provided Communion [] Anointing/Sanborn [] Salvation [xx] Completed spiritual assessment [] Other: Impact on Illness or Injury [] Angry [] Fearful [] Anxious [] Often cries [] Exhaustion [] Unable to work [] Unable to attend taoist [] Unable to walk/stand [] Unable to read [] Unable to drive [] Unable to eat/drink [] Unable to sleep [] Unable to be with family [] Patient intubated [] Other: Summary Patient's son, daughter, and granddaughter were all present. Patient slept through visit with family as she had been awake at least 30 hours or more and need for sleep had caught up with her. Daughter, Ivory, stated patient was going home with her for a few weeks as she had had hip surgery a few days prior and needs constant care until she heals. Ivory stated her mother is strong physically and mentally and will be returning to her own home as soon as physically able. This hospitalization was only for an episode of low sodium post surgery and is being treated. Time spent with patient 12 minutes
[2021-02-13 15:33] LABS: Osmolality Serum 272 mOsm/kg (278-305)
[2021-02-13 15:33] LABS: Osmolality Urine 240 mOsm/kg (50-1200)
--- NOTE | 2021-02-13 16:20 | PC.NURSE ---
PT HAS DONE WELL FOR ME TODAY. PT HAS BEEN ALERT & ORIENTATED ALL DAY LONG. PT IS STRONGER TODAY. SHE HAS BEEN GETTING UP WITH THE WALKER AND STANDBY ASSIST. SHE HAS HAD JUST MINIMAL COMPLAINTS OF PAIN WHICH HAVE BEEN TREATED WITH TYLENOL. FAMILY HAS BEEN AT BEDSIDE WITH PT ALL DAY LONG. PTS IS IMPROVING OVERALL. IT WAS DECIDED THAT PT CAN SAFELY DISCHARGE TODAY. IV WAS REMOVED AROUND 1400. PT TOLERATED WELL. CATHETER TIP INTACT. DISCHARGE PAPERWORK WAS GONE OVER WITH THE PT AND FAMILY. ALL QUESTIONS WERE ANSWERED. PT WAS WHEELED DOWN IN THE WHEELCHAIR BY THIS NURSE. PT SAFELY DISCHARGED FROM THE HOSPITAL.
== END 2021-02-13 16:20 | disposition home health service (06) | DRG 71 ==
LOC: ER 19:54 → MEDSURG 02-12 08:29
PROVIDERS: Family Medicine; Admitting Provider Internal Medicine; Emergency Provider Emergency Medicine; PCP Physician Assistant; Visit Provider Student in an Organized Health Care Education/Training Program
DX: G93.41 Metabolic encephalopathy (principal); E87.1 Hypo-osmolality and hyponatremia; I48.19 Other persistent atrial fibrillation; F05 Delirium due to known physiological condition; E87.2 Acidosis; D64.9 Anemia, unspecified; R50.9 Fever, unspecified; R06.02 Shortness of breath; E87.70 Fluid overload, unspecified; E78.5 Hyperlipidemia, unspecified; I49.5 Sick sinus syndrome; R77.8 Other specified abnormalities of plasma proteins; M19.90 Unspecified osteoarthritis, unspecified site; I12.9 Hypertensive chronic kidney disease with stage 1 through stage 4 chronic kidney disease, or unspecified chronic kidney disease; N18.9 Chronic kidney disease, unspecified; Z98.890 Other specified postprocedural states; Z96.641 Presence of right artificial hip joint; Z79.01 Long term (current) use of anticoagulants; Z66 Do not resuscitate
CPT/HCPCS: 36415; 70450; 71045; 72170; 80048; 80053; 80061; 81001; 83036; 83540; 83550; 83605; 83735; 83880; 83930; 83935; 84145; 84300; 84443; 84484; 85018; 85025; 85378; 87040; 87426; 93005; 93306; 96365; 97116; 97161; 97166; 97530; 97535; 99291; C1776; G0378; J0690; J1580; J1940; J1956; J2704; J7030; P9047

== ENCOUNTER → 2021-03-24 15:52 | Outpatient (BNVA) | payer MEDICARE, OTHER, SELFPAY | PROVIDERS: PCP Physician Assistant; Visit Provider Orthopaedic Surgery | DX: Z47.1 Aftercare following joint replacement surgery (principal); Z96.641 Presence of right artificial hip joint | CPT/HCPCS: 73502 ==

== ENCOUNTER → 2022-03-12 09:54 | Outpatient (BNVA) | payer MEDICARE, OTHER, SELFPAY | PROVIDERS: PCP Physician Assistant; Visit Provider Internal Medicine Cardiovascular Disease | DX: Z45.010 Encounter for checking and testing of cardiac pacemaker pulse generator [battery] (principal) | CPT/HCPCS: 93280 ==

== ENCOUNTER → 2022-04-29 14:18 | Outpatient (BNVA) | payer MEDICARE, OTHER, SELFPAY | PROVIDERS: PCP Physician Assistant; Visit Provider Internal Medicine | DX: I49.5 Sick sinus syndrome (principal); I10 Essential (primary) hypertension; Z95.0 Presence of cardiac pacemaker; Z79.01 Long term (current) use of anticoagulants | CPT/HCPCS: 99213; 99214 ==

== ENCOUNTER 2022-06-06 14:39 | Observation (INO) | payer MEDICARE, MEDICAID, SELFPAY ==
[2022-06-06 15:02] VITALS: BP 137/81; PULSE 79; RESP 16; TEMP 36.4; O2SAT 97; BMI 28.1
[2022-06-06 19:40] VITALS: BP 177/88; PULSE 62; RESP 16; O2SAT 96
--- NOTE | 2022-06-06 20:34 | ED_ITS ---
HPI - General Adult General: Chief complaint: Abdominal Pain Stated complaint: abd pain; n/v Time Seen by Provider: 06/06/22 20:20 History of Present Illness: Patient is an 82-year-old female history hypertension, pacemaker dependence, atrial fibrillation on amiodarone and apixaban presenting to the emergency room with complaints of an lower chest upper abdominal pain since 2 PM yesterday. Patient was at home when she sitting down when this all started. Patient describes a pressure-like sensation lasting for 10 to 15 minutes at a time. Patient has had persistent pain decided come to the emergency room. Patient does not have any prior history of CAD. Patient denies any history of stents or CABG. Patient having cough, runny nose sore throat exertional dyspnea. Patient has no pleuritic chest pain. Denies any swelling in the legs. Denies any diarrhea melena medic easier. Patient reports that the pain is worse with p.o. intake. Onset:yesterday at 2pm Duration:ongoing Location:home Severity:moderate Associated symptoms: Reports chest pain; Deny dyspnea, nausea, rash, palpitations or vomiting Review of Systems Const: Denies: fever(s) or chills Eyes: Denies: change in vision ENMT: Denies: mouth pain Card: Reports: chest pain; Denies: palpitations Resp: Denies: dyspnea or non-productive cough GI: Reports: abdominal pain; Denies: nausea, vomiting or diarrhea : Denies: dysuria Musc: Denies: extremity pain Skin/Breast: Denies: rash or new lesions Neuro: Denies: weakness in extremities Psych: Reports: other (Normal mood) [place]/Lymph: Denies: easy bruising [facility] ED PFSH: Medical History Arthritis Essential hypertension GERD (gastroesophageal reflux disease) History of anemia Hyperlipidemia 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 Persistent atrial fibrillation Sick sinus syndrome Tachy-yun syndrome Surgical History History of back surgery Family History Father CAD (coronary artery disease) Lung disease Mother Dementia Hypertension Sister Dementia Other Diabetes Social History Smoking and tobacco status: never smoked Alcohol intake: never Physical Exam Const: COMMON NORMALS: alert HENMT: COMMON NORMALS: atraumatic HEAD & SCALP: atraumatic MOUTH: moist mucous membranes not abnormal Eye: COMMON NORMALS: EOMs intact bilaterally and conjunctivae normal CONJUNCTIVA: Yes conjunctivae normal Neck/C-Spine: COMMON NORMALS: full ROM and supple Resp: COMMON NORMALS: normal respiratory effort and clear to auscultation bilaterally AUSCULTATION: clear to auscultation bilaterally Cardio: COMMON NORMALS: regular rate RATE: regular rate GI: COMMON NORMALS: Soft to palpation PALPATION: Yes Soft to palpation OTHER: +mild midepigastric focal TTP. NO guarding rebound, guarding, rigidity. No CVA tenderness to percussion. Neg Bates/Neg McBurney's point tenderness, no suprabupic tenderness to palpation. Extremity: COMMON NORMALS: full ROM Neuro: SENSORIUM/ORIENTATION: Yes alert MOTOR EXAM: No Abnormal motor strength present and Other motor observations present (no focal motor deficits) Psych: COMMON NORMALS: speech normal SPEECH: Yes normal speech MOOD & AFFECT: Yes euthymic mood Course Vital Signs: Vital signs: Vital Signs Temperature 97.6 F 06/06/22 15:02 Pulse Rate 62 06/06/22 19:40 Respiratory Rate 16 06/06/22 19:40 Blood Pressure 177/88 06/06/22 19:40 Pulse Oximetry 96 06/06/22 19:40 [facility] - General Adult Medical Decision Making Patient is an 82-year-old female history hypertension, pacemaker dependence, atrial fibrillation on amiodarone and apixaban presenting to the emergency room with complaints of an lower chest upper abdominal pain since 2 PM yesterday. EKG is nonischemic. Troponin today of 26. Creatinine 1.4 similar to baseline. Given patient has not had any cardiac work-up and age with appropriate risk factor, patient will be admitted to hospital for further evaluation. Disposition: admission Lab Data : 06/06/22 20:45 06/06/22 20:45 Laboratory Results WBC 10.3 10^3/uL (4.0-10.0) H 06/06/22 20:45 RBC 5.14 10^6/uL (4.1-5.3) 06/06/22 20:45 Hgb 14.2 g/dL (11.5-15.3) 06/06/22 20:45 Hct 46.1 % (37.0-47.0) 06/06/22 20:45 MCV 89.7 fl (81-99) 06/06/22 20:45 MCH 27.6 pg (28.0-34.0) L 06/06/22 20:45 MCHC 30.8 g/dL (30.0-36.0) 06/06/22 20:45 RDW 15.1 % (12.1-15.1) 06/06/22 20:45 Plt Count 309 10^3/cmm (130-400) 06/06/22 20:45 MPV 10.6 fL (7.4-10.4) H 06/06/22 20:45 Neut % (Auto) 69.8 % 06/06/22 20:45 Lymph % (Auto) 22.5 % 06/06/22 20:45 [place] % (Auto) 6.7 % 06/06/22 20:45 Eos % (Auto) 0.1 % 06/06/22 20:45 Baso % (Auto) 0.6 % 06/06/22 20:45 Neut # (Auto) 7.19 10^3/uL (1.8-7.7) 06/06/22 20:45 Lymph # (Auto) 2.3 10^3/uL (0.8-4.8) 06/06/22 20:45 [place] # (Auto) 0.7 10^3/uL (0.2-0.9) 06/06/22 20:45 Eos # (Auto) 0.0 10^3/uL (0.0-0.8) 06/06/22 20:45 Baso # (Auto) 0.1 10^3/uL (0.0-0.1) 06/06/22 20:45 Nucleated RBC % (auto) 0 % 06/06/22 20:45 Nucleated RBCs # 0.0 /100WBC 06/06/22 20:45 Sodium 139 mmol/L (136-145) 06/06/22 20:45 Potassium 3.8 mmol/L (3.5-5.1) 06/06/22 20:45 Chloride 101 mmol/L (98-107) 06/06/22 20:45 Carbon Dioxide 21 mmol/L (22-29) L 06/06/22 20:45 Anion Gap 20.8 (5-19) H 06/06/22 20:45 BUN 15 mg/dL (8-23) 06/06/22 20:45 Creatinine 1.4 mg/dL (0.5-0.9) H 06/06/22 20:45 GFR Calculation Not Reportable 06/06/22 20:45 Glucose 102 mg/dL (65-115) 06/06/22 20:45 Calculated Osmolality 289 mOsm/kg (285-295) 06/06/22 20:45 Calcium 9.9 mg/dL (8.5-10.5) 06/06/22 20:45 Total Bilirubin 0.5 mg/dL (0.15-1.2) 06/06/22 20:45 AST 29 U/L (0-32) 06/06/22 20:45 ALT 21 U/L (0-33) 06/06/22 20:45 Alkaline Phosphatase 105 IU/L (35-105) 06/06/22 20:45 Troponin T Gen 5 ng/L 26 ng/L (0-10) H 06/06/22 20:45 Total Protein 7.4 g/dL (6.6-8.7) 06/06/22 20:45 Albumin 4.2 g/dL (3.5-5.2) 06/06/22 20:45 Globulin 3.2 g/dL (1.3-4.6) 06/06/22 20:45 Lipase 17 U/L (13-60) 06/06/22 20:45 Discharge Plan Discharge Patient Disposition: Admitted As Inpatient Clinical Impression: Chest pain, Abdominal pain Condition: Stable Coding Level of Care Code ED Pediatric Nephrologist for Chg Fwd Exam Comprehensive
--- NOTE | 2022-06-06 20:35 | ECG_ITS ---
[facility] Test Date: 2022-06-06 Pat Name: Melba Leroy Department: Room: Gender: Female Certified Pharmacy Technician: : [id number] Requested By: Regina Flores Order Number: [id number] Nikolay MD: Jermaine Aguirre M.D. Measurements Intervals [place] Rate: 66 P: 89 MS: 227 QRS: 15 QRSD: 145 T: 17 QT: 493 QTc: 520 Interpretive Statements ELECTRONIC ATRIAL PACEMAKER INDETERMINATE AXIS RIGHT BUNDLE BRANCH BLOCK [120+ ms QRS DURATION, UPRIGHT V1, 40+ ms S IN I/aVL/V4/V5/V6] Compared to ECG 02/11/2021 19:12:20 Indeterminate axis now present Electronically Signed On 06-07-2022 17:36:40 CDT by Jermaine Aguirre M.D. [id number]
[2022-06-06 20:51] LABS: Basophils # 0.1 10^3/uL (0.0-0.1); Basophils % 0.6 %; Eosinophils % 0.1 %; Hematocrit 46.1 % (37.0-47.0); Hemoglobin 14.2 g/dL (11.5-15.3); Lymphocytes # 2.3 10^3/uL (0.8-4.8); Lymphocytes % 22.5 %; Mean Corpuscular HGB Conc 30.8 g/dL (30.0-36.0); Mean Corpuscular Hemoglobin 27.6 pg (28.0-34.0); Mean Corpuscular Volume 89.7 fl (81-99); Mean Platelet Volume 10.6 fL (7.4-10.4); Monocytes # 0.7 10^3/uL (0.2-0.9); Monocytes % 6.7 %; Neutrophils # 7.19 10^3/uL (1.8-7.7); Neutrophils % 69.8 %; Nucleated Red Blood Cells % 0 %; Platelet Count 309 10^3/cmm (130-400); Red Blood Count 5.14 10^6/uL (4.1-5.3); Red Cell Distribution Width 15.1 % (12.1-15.1); White Blood Count 10.3 10^3/uL (4.0-10.0)
[2022-06-06] MEDS: amlodipine 5 mg Tablet PO (21:05)
[2022-06-06 21:20] LABS: Alanine Aminotransferase 21 U/L (0-33); Albumin Level 4.2 g/dL (3.5-5.2); Alkaline Phosphatase 105 IU/L (35-105); Anion Gap 20.8 (5-19); Aspartate Amino Transferase 29 U/L (0-32); Blood Urea Nitrogen 15 mg/dL (8-23); Calcium 9.9 mg/dL (8.5-10.5); Carbon Dioxide 21 mmol/L (22-29); Chloride 101 mmol/L (98-107); Globulin 3.2 g/dL (1.3-4.6); Glucose 102 mg/dL (65-115); Lipase 17 U/L (13-60); Osmolality Calculated 289 mOsm/kg (285-295); Potassium 3.8 mmol/L (3.5-5.1); Sodium 139 mmol/L (136-145); Total Bilirubin 0.5 mg/dL (0.15-1.2); Total Protein 7.4 g/dL (6.6-8.7)
[2022-06-06 21:22] LABS: Troponin T (5th) Once 26 ng/L (0-10)
--- NOTE | 2022-06-06 22:27 | XRR_ITS ---
PROCEDURE INFORMATION: Exam: XR Chest Exam date and time: 06/06/2022 10:51 PM Age: 82 years old Clinical indication: Other: Nause/ abd pain; Prior surgery; Surgery date: 6+ months; Surgery type: Pacemaker; Patient HX: C/O chest pain/abd pain/nausea TECHNIQUE: Imaging protocol: Radiologic exam of the chest. Views: 1 view. COMPARISON: CR XR chest 1V portable [id number] 02/11/2021 5:00 PM FINDINGS: Tubes, catheters and devices: Stable right pacemaker. Lungs: Unremarkable. No consolidation. Pleural spaces: Unremarkable. No pleural effusion. No pneumothorax. Heart/Mediastinum: Unremarkable. No cardiomegaly. Bones/joints: Unremarkable. XR/XR chest 1V portable [id number] IMPRESSION: No acute findings.
--- NOTE | 2022-06-06 22:38 | CTR_ITS ---
PROCEDURE INFORMATION: Exam: CT Abdomen And Pelvis Without Contrast Exam date and time: 06/06/2022 11:31 PM Age: 82 years old Clinical indication: Abdominal pain; Localized; Right upper quadrant (ruq); Prior surgery; Surgery type: Pacemaker; Additional info: Ruq pain TECHNIQUE: Imaging protocol: Computed tomography of the abdomen and pelvis without contrast. Radiation optimization: All CT scans at this facility use at least one of these dose optimization techniques: automated exposure control; mA and/or kV adjustment per patient size (includes targeted exams where dose is matched to clinical indication); or iterative reconstruction. COMPARISON: CR (CHEST, ) 06/06/2022 10:51 PM RADIATION DOSE METRICS: Total DLP (mGy-cm): 479.38 FINDINGS: Diaphragm: Small intrathoracic hiatal hernia. Liver: Single hepatic cyst measuring > 1.0 cm. Gallbladder and bile ducts: Multiple gallstones within the gallbladder. Mildly enlarged 9.1 x 4.1 cm gallbladder. Pancreas: Normal. No ductal dilation. Spleen: One or more accessory splenules. Adrenal glands: Normal. No mass. Kidneys and ureters: Multiple left renal simple cysts with the largest measuring > 1.0 cm. Stomach and bowel: Moderate diverticulosis. Appendix: No evidence of appendicitis. Intraperitoneal space: Unremarkable. No free air. No significant fluid collection. Vasculature: Calcification of the abdominal aorta and/or iliac arteries consistent with atherosclerotic vessel disease. Lymph nodes: Unremarkable. No enlarged lymph nodes. Urinary bladder: Unremarkable as visualized. Reproductive: Unremarkable as visualized. Bones/joints: Right total hip replacement with metallic artifact partially obscuring the pelvic anatomy. Severe multilevel spine degenerative changes including degenerative disc disease, spondylosis and facet degenerative changes. Idiopathic S-shaped scoliosis. Soft tissues: Unremarkable. CT/CT abdomen pelvis wo con [id number] IMPRESSION: 1. Multiple gallstones within the gallbladder. 2. Mildly enlarged 9.1 x 4.1 cm gallbladder. COMMENTS: Consistent with the [employer]'s Incidental Findings Committee white paper (J Am Paulino Radiol 2018): Any incidental renal lesion less than 1 cm or classified as too small to characterize, or any incidental cystic renal lesion characterized as simple-appearing, is likely benign. No follow-up imaging is recommended for these lesions per consensus recommendations based on imaging criteria.
[2022-06-06 22:40] VITALS: BP 190/92; PULSE 60; RESP 22; O2SAT 95
--- NOTE | 2022-06-06 22:44 | P.HP_ITS ---
Providers/Chief Complaint Primary Care Provider: Lidia Stephens Chief Complaint: abd pain; n/v History of Present Illness Melba Leroy is a 82 year old female with a past medical history of atrial fibrillation on Eliquis, history of permanent pacemaker placement, hypertension, GERD, tachybradycardia syndrome, history of diastolic CHF, who presents to [facility] due to epigastric discomfort. She tells me that today she started to develop some epigastric discomfort, some right upper quadrant pain, she thought it was acid reflux, however her symptoms progressed and became more severe. She denies any chest pain, no palpitations, no shortness of breath. He tells me that the pain is primary in the epigastrium, some in the right upper quadrant, some nausea, no vomiting, no diarrhea, she still has her gallbladder. No fevers, no chills. Review of Systems Const: Denies: fever(s) Card: Denies: chest pain Resp: Denies: dyspnea GI: Reports: abdominal pain and nausea : Denies: difficulty voiding Medications/Allergies Home Medications Medication Instructions Recorded Confirmed Last Taken Type amiodarone 200 mg tablet 200 mg PO DAILY@89910/31/19 04/29/22 02/11/21 History apixaban 5 mg tablet (Eliquis) 5 mg PO BID@899,209910/31/19 04/29/22 02/11/21 History citalopram 20 mg tablet (Celexa) 20 mg PO DAILY@89910/31/19 04/29/22 02/11/21 History isosorbide mononitrate 10 mg tablet 10 mg PO DAILY@89910/31/19 04/29/22 02/11/21 History lovastatin 20 mg tablet 20 mg PO DAILY@89910/31/19 04/29/22 02/11/21 History magnesium 250 mg tablet 250 mg PO DAILY@89910/31/19 04/29/22 02/11/21 History metoprolol tartrate 25 mg tablet 12.5 mg PO BID@899,209910/31/19 04/29/22 02/11/21 History tamsulosin 0.4 mg capsule (Flomax) 0.4 mg PO DAILY@89910/31/19 04/29/22 02/11/21 History acetaminophen 650 mg 650 mg PO Q12H PRN hypertension 12/17/19 04/29/22 02/11/21 Rx tablet,extended release #60 tabs amlodipine 5 mg tablet 5 mg PO DAILY@0906/23/20 04/29/22 02/11/21 History furosemide 20 mg tablet 20 mg PO DAILY@0906/23/20 04/29/22 02/11/21 History potassium chloride 10 mEq 10 meq PO DAILY@0906/23/20 04/29/22 02/11/21 History tablet,extended release Bedside Commode #1 ea 02/11/21 04/29/22 Unknown Rx losartan 50 mg tablet 50 mg PO DAILY@0900 #30 tabs 02/13/21 04/29/22 Unknown Rx Allergies Allergy/AdvReac Type Severity Reaction Status Date / Time Iodine and Iodide Containing Allergy Unknown Verified 04/29/22 14:33 Produc penicillin G Allergy rash Verified 04/29/22 14:33 Sulfa (Sulfonamide Allergy rash Verified 04/29/22 14:33 Antibiotics) PFSH Acute PFSH: Medical History Arthritis Essential hypertension GERD (gastroesophageal reflux disease) History of anemia Hyperlipidemia 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 Persistent atrial fibrillation Sick sinus syndrome Tachy-yun syndrome Surgical History History of back surgery Family History Father CAD (coronary artery disease) Lung disease Mother Dementia Hypertension Sister Dementia Other Diabetes Social History Smoking and tobacco status: never smoked Alcohol intake: never Vitals/I&O/Wt Last Vital Signs Temp 97.6 F 06/06/22 15:02 Pulse 62 06/06/22 19:40 Resp 16 06/06/22 19:40 BP 177/88 06/06/22 19:40 Pulse Ox 96 06/06/22 19:40 Weight last 48 hrs Weight 67.585 kg Physical Exam Const: COMMON NORMALS: no acute distress and patient oriented x3 HENMT: COMMON NORMALS: normocephalic HEAD & SCALP: normocephalic Eye: COMMON NORMALS: Equal, round and reactive pupils present and EOMs intact bilaterally Neck/C-Spine: COMMON NORMALS: no JVD Resp: COMMON NORMALS: normal respiratory effort, No retractions, No use of accessory muscles and clear to auscultation bilaterally AUSCULTATION: clear to auscultation bilaterally Cardio: COMMON NORMALS: no JVD, regular rate, regular rhythm, S1 normal heart sound present and S2 normal heart sound present RATE: regular rate RHYTHM: regular rhythm HEART SOUNDS: S1 normal heart sound present and S2 normal heart sound present GI: COMMON NORMALS: Normal to inspection, nondistended, normoactive bowel sounds present and Soft to palpation AUSCULTATION: Yes normoactive bowel sounds PALPATION: Yes Soft to palpation and Yes Tenderness to palpation present (GI) (Tender in the right upper quadrant, epigastrium) Extremity: COMMON NORMALS: capillary refill normal, no clubbing, cyanosis or edema, no calf tenderness and no pedal edema Neuro: COMMON NORMALS: patient oriented x3, CN's II-XII intact bilaterally, moves all extremities and no focal motor deficits Psych: COMMON NORMALS: mental status grossly normal Data : 06/06/22 20:45 06/06/22 20:45 A&P Assessment and plan (1) Abdominal pain: Status: Acute (2) Essential hypertension: Status: Acute (3) Atrial fibrillation: Status: Acute Plan Epigastric discomfort, abdominal pain -Does not have any chest pain complaints, no palpitations -Pain is primarily epigastrium, right upper quadran -No significant alk phos, bili, LFT abnormalities -We will do a right upper quadrant ultrasound CT scan abdomen pelvis -Protonix -We will try GI cocktail -Patient does not want to be intubated, but is okay with chest compressions, defibrillation, bag mask ventilation, but for only 2 to 3 minutes -Eliquis for DVT prophylaxis NSTEMI -Mild troponin elevation at 26, no acute ST-T wave changes, no chest pain complaints -Serial EKGs, serial troponins, telemetry monitoring -Aspirin, statin, Eliquis -Cardiac echo -We will hold off on stress testing for now, work-up as above Atrial fibrillation not in exacerbation, continue home medications Attestations Medical Necessity Statement*: Patient requires hospitalization, outpatient with observation, for epigastric discomfort, abdominal pain Coding Level of Care Code Acute Warp Worker for Chg Fwd Diagnoses Abdominal pain R10.9 Essential hypertension I10 Atrial fibrillation I48.91
[2022-06-06 23:08] VITALS: BP 190/92; PULSE 60; RESP 22; O2SAT 95
[2022-06-06 23:23] LABS: Procalcitonin 0.07 ng/mL (0-0.5)
[2022-06-06] MEDS: pantoprazole 40 mg SDV IVP (23:43)
[2022-06-06 23:51] LABS: Chol HDL Ratio 2.57 mg/dL (0.0-4.40); Cholesterol 175 mg/dL (0-200); HDL Cholesterol 68 mg/dL (60-100); LDL Cholesterol Calculated 91 mg/dL (50-129); LDL HDL Ratio 1.34 RATIO (0.00-3.22); Thyroid Stimulating Hormone 1.71 uIU/mL (0.27-4.20); Triglycerides 78 mg/dL (0-150)
[2022-06-07] VITALS (13 sets, daily range): BP systolic 137–190; BP diastolic 73–92; PULSE 58–62; RESP 16–22; TEMP 36.6–36.8; O2SAT 93–96
[2022-06-07 00:21] LABS: Estmated Average Glucose 105; Hemoglobin A1C 5.3 % (4.0-6.0)
[2022-06-07 02:22] LABS: Basophils # 0.1 10^3/uL (0.0-0.1); Basophils % 0.5 %; Eosinophils % 0.4 %; Hematocrit 40.4 % (37.0-47.0); Hemoglobin 12.3 g/dL (11.5-15.3); Lymphocytes # 2.4 10^3/uL (0.8-4.8); Lymphocytes % 25.4 %; Mean Corpuscular HGB Conc 30.4 g/dL (30.0-36.0); Mean Corpuscular Hemoglobin 27.6 pg (28.0-34.0); Mean Corpuscular Volume 90.8 fl (81-99); Mean Platelet Volume 10.1 fL (7.4-10.4); Monocytes # 1.2 10^3/uL (0.2-0.9); Monocytes % 12.1 %; Neutrophils # 5.79 10^3/uL (1.8-7.7); Neutrophils % 61.3 %; Nucleated Red Blood Cells % 0 %; Platelet Count 245 10^3/cmm (130-400); Red Blood Count 4.45 10^6/uL (4.1-5.3); Red Cell Distribution Width 15.2 % (12.1-15.1); White Blood Count 9.5 10^3/uL (4.0-10.0)
[2022-06-07 02:35] LABS: INR 1.15 (0.8-1.2)
[2022-06-07 03:06] LABS: Alanine Aminotransferase 15 U/L (0-33); Albumin Level 3.6 g/dL (3.5-5.2); Alkaline Phosphatase 89 IU/L (35-105); Anion Gap 16.7 (5-19); Aspartate Amino Transferase 25 U/L (0-32); Blood Urea Nitrogen 14 mg/dL (8-23); Calcium 9.2 mg/dL (8.5-10.5); Carbon Dioxide 23 mmol/L (22-29); Chloride 106 mmol/L (98-107); Globulin 2.5 g/dL (1.3-4.6); Glucose 95 mg/dL (65-115); Magnesium 2.2 mg/dL (1.7-2.3); NT Pro B Type Natriuretic Pept 1241 pg/mL (0-450); Osmolality Calculated 294 mOsm/kg (285-295); Phosphorus 3.1 mg/dL (2.5-4.5); Potassium 3.7 mmol/L (3.5-5.1); Sodium 142 mmol/L (136-145); Total Bilirubin 0.4 mg/dL (0.15-1.2); Total Protein 6.1 g/dL (6.6-8.7)
[2022-06-07 06:26] LABS: Troponin(5th) Baseline 43 ng/L (0-10)
[2022-06-07 08:15] LABS: Troponin 5 2HR 40.67 ng/L (0-10); Troponin 5 2HR Delta -2.33 ABS# (0-10)
--- NOTE | 2022-06-07 08:51 | ECG_ITS ---
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 Measurements Intervals [place] Rate: 59 P: 58 CA: 221 QRS: -43 QRSD: 141 T: -18 QT: 503 QTc: 502 Interpretive Statements ELECTRONIC ATRIAL PACEMAKER LEFT AXIS DEVIATION [QRS AXIS < -30] RIGHT BUNDLE BRANCH BLOCK [120+ ms QRS DURATION, UPRIGHT V1, 40+ ms S IN I/aVL/V4/V5/V6] Compared to ECG 06/06/2022 20:35:50 Left-axis deviation now present Indeterminate axis no longer present Electronically Signed On 06-07-2022 17:43:50 CDT by Jermaine Aguirre M.D. [id number]
[2022-06-07] MEDS: potassium chloride ER 10 mEq Tablet PO (09:21)
[2022-06-07] MEDS: atorvastatin 40 mg Tablet 20 MG PO (09:21)
[2022-06-07] MEDS: tamsulosin 0.4 mg Capsule PO (09:21)
[2022-06-07] MEDS: citalopram 20 mg Tablet PO (09:22)
[2022-06-07] MEDS: aspirin 81 mg EC Tablet PO (09:22)
[2022-06-07] MEDS: apixaban 5 mg Tablet PO (09:26)
--- NOTE | 2022-06-07 10:31 | PC.CHAP ---
Pastoral Care Encounter/Spiritual Assessment Type of Contact [] Declined ice cream freezer assistant visit [] Patient/Family/Request visit [] Outpatient visit [] Follow-up visit [] Physician referral [] Code/Alert [x] Routine visit [] Staff referral [] Actively dying [x] Patient sleeping [] Family support [] [] Out of room [] Palliative care [] [] Receiving care in room [] Pre-surgical visit [] Trauma [] Long length of stay [] ICU visit [] Other: Relational/Emotional Strength [] Patient feels connected with others/family/visitors/staff [] Distress [] Loneliness/isolation [] Abandonment Spirituality of Patient [] Person of Lor [] Attends Rastafarian of their Lor [] Believes in Prayer [] Reads Bible or Jewish materials [] There are Spiritual issues to be addressed Ve Teacher Interventions [] Prayer [] Active listening [] Non-anxious presence [] Spiritual/emotional support [] Crisis/trauma care [] Spiritual counseling [] Bereavement support [] Provided bereavement packet [] Provided Bible/devotional materials [] Provided toy/stuffed animal, coloring book to patient or family member [] Provided Communion [] Anointing/Sears [] Salvation [] Completed spiritual assessment [] Other: Impact on Illness or Injury [] Angry [] Fearful [] Anxious [] Often cries [] Exhaustion [] Unable to work [] Unable to attend voodoo [] Unable to walk/stand [] Unable to read [] Unable to drive [] Unable to eat/drink [] Unable to sleep [] Unable to be with family [] Patient intubated [] Other: Summary Time spent with patient
[2022-06-07] MEDS: isosorbide mononitrate 20 mg Tablet 10 MG PO (11:02)
[2022-06-07] MEDS: amiodarone 200 mg Tablet PO (11:02)
[2022-06-07] MEDS: losartan 50 mg Tablet PO (11:02)
[2022-06-07] MEDS: amlodipine 5 mg Tablet PO (11:04)
[2022-06-07] MEDS: pantoprazole 40 mg SDV IVP (12:02)
[2022-06-07 12:18] LABS: Troponin 5 6HR 38.38 ng/L (0-10)
[2022-06-07 12:31] LABS: Troponin 5 6HR Delta -4.62 ng/L (0-12)
--- NOTE | 2022-06-07 16:01 | PM.DCS ---
Discharge Providers Date of Admission: 06/06/22 22:25 Date of Discharge: June 07, 2022 Attending Provider at Admission: Julio C Hoffman MD Attending Provider at Discharge: Aryan Hernandez DO Primary Care Provider: Lidia Stephens Diagnoses at Discharge Discharge Diagnosis (1) Abdominal pain: Details from hospital stay: Had a CT scan of the abdomen that showed cholelithiasis and a dilated gallbladder. This could be the underlying etiology of for her on and off abdominal pain. Also she has a history of GERD for which she stopped taking her Protonix. This pain is improved after receiving Protonix and a GI cocktail. Status: Acute (2) Essential hypertension: Details from hospital stay: Stable on current regimen. Originally we stopped the metoprolol due to heart rate however patient has a pacemaker. Status: Acute (3) Atrial fibrillation: Details from hospital stay: Heart rate stable. Status: Chronic Reason for Visit Reason for Visit: abd pain; n/v Hospital Course Hospital Course Patient was admitted for abdominal pain. Her initial troponin was slightly elevated. Repeat showed no trending. It is likely the troponin is elevated due to CHF. Patient had a CT of the abdomen showing cholelithiasis with a dilated gallbladder. The patient's symptoms improved with Protonix as well as a GI cocktail. Patient carries the diagnosis of GERD and has stopped taking Protonix for unknown reason. I have advised the patient and daughter to seek outpatient surgical consultation for possible cholecystectomy. Otherwise if her symptoms improve on Protonix then we could monitor her gallbladder. Physical Exam Narrative: Patient is seen sitting in her chair. She is in no acute distress. Heart: Regular normal S1-S2 without murmurs clicks gallops or rubs Lungs: Clear without wheezes rales or rhonchi. Abdomen soft very minimal tenderness in the epigastric area. No rebound rigidity or guarding Extremities: No clubbing cyanosis or edema. Discharge Data Studies Completed and Pending Completed Studies During Hospitalization Category Date Time Status CT abdomen pelvis wo con [id number] Stat Cat Scan 06/06/22 22:38 Completed XR chest 1V portable [id number] Stat Exams 06/06/22 22:27 Completed Pending at discharge Category Date Time Status Blood Culture Stat Lab 06/06/22 05:30 Results Complete Blood Count w/Auto AM LABS Lab 06/08/22 04:00 Ordered Complete Blood Count w/Auto AM LABS Lab 06/09/22 04:00 Ordered Comprehensive Metabolic Panel AM LABS Lab 06/08/22 04:00 Ordered Comprehensive Metabolic Panel AM LABS Lab 06/09/22 04:00 Ordered Magnesium AM LABS Lab 06/08/22 04:00 Ordered Magnesium AM LABS Lab 06/09/22 04:00 Ordered Phosphorus AM LABS Lab 06/08/22 04:00 Ordered Phosphorus AM LABS Lab 06/09/22 04:00 Ordered Prothrombin Time INR AM LABS Lab 06/08/22 04:00 Ordered Prothrombin Time INR AM LABS Lab 06/09/22 04:00 Ordered UA w/Reflex to Microscope [Urinalysis] Stat Lab 06/06/22 17:00 Uncollected CV. echo complete* [id number] Stat Ultrasound 06/07/22 22:38 Taken US gall bladder [id number] Routine Ultrasound 06/08/22 22:38 Ordered Radiology Impressions Chest X-Ray 06/06/22 22:27 IMPRESSION: No acute findings. Abdomen/Pelvis CT 06/06/22 22:38 IMPRESSION: 1. Multiple gallstones within the gallbladder. 2. Mildly enlarged 9.1 x 4.1 cm gallbladder. COMMENTS: Consistent with the [employer]'s Incidental Findings Committee white paper (J Am Paulino Radiol 2018): Any incidental renal lesion less than 1 cm or classified as too small to characterize, or any incidental cystic renal lesion characterized as simple-appearing, is likely benign. No follow-up imaging is recommended for these lesions per consensus recommendations based on imaging criteria. Laboratory Results WBC 9.5 10^3/uL (4.0-10.0) 06/07/22 02:01 RBC 4.45 10^6/uL (4.1-5.3) 06/07/22 02:01 Hgb 12.3 g/dL (11.5-15.3) 06/07/22 02:01 Hct 40.4 % (37.0-47.0) 06/07/22 02:01 MCV 90.8 fl (81-99) 06/07/22 02:01 MCH 27.6 pg (28.0-34.0) L 06/07/22 02:01 MCHC 30.4 g/dL (30.0-36.0) 06/07/22 02:01 RDW 15.2 % (12.1-15.1) H 06/07/22 02:01 Plt Count 245 10^3/cmm (130-400) 06/07/22 02:01 MPV 10.1 fL (7.4-10.4) 06/07/22 02:01 Neut % (Auto) 61.3 % 06/07/22 02:01 Lymph % (Auto) 25.4 % 06/07/22 02:01 Gonzales % (Auto) 12.1 % 06/07/22 02:01 Eos % (Auto) 0.4 % 06/07/22 02:01 Baso % (Auto) 0.5 % 06/07/22 02:01 Neut # (Auto) 5.79 10^3/uL (1.8-7.7) 06/07/22 02:01 Lymph # (Auto) 2.4 10^3/uL (0.8-4.8) 06/07/22 02:01 Gonzales # (Auto) 1.2 10^3/uL (0.2-0.9) H 06/07/22 02:01 Eos # (Auto) 0.0 10^3/uL (0.0-0.8) 06/07/22 02:01 Baso # (Auto) 0.1 10^3/uL (0.0-0.1) 06/07/22 02:01 Nucleated RBC % (auto) 0 % 06/07/22 02:01 Nucleated RBCs # 0.0 /100WBC 06/07/22 02:01 PT 15.00 SECONDS (12.1-14.9) H 06/07/22 02:01 INR 1.15 (0.8-1.2) 06/07/22 02:01 Sodium 142 mmol/L (136-145) 06/07/22 02:01 Potassium 3.7 mmol/L (3.5-5.1) 06/07/22 02:01 Chloride 106 mmol/L (98-107) 06/07/22 02:01 Carbon Dioxide 23 mmol/L (22-29) 06/07/22 02:01 Anion Gap 16.7 (5-19) 06/07/22 02:01 BUN 14 mg/dL (8-23) 06/07/22 02:01 Creatinine 1.2 mg/dL (0.5-0.9) H 06/07/22 02:01 GFR Calculation Not Reportable 06/07/22 02:01 Glucose 95 mg/dL (65-115) 06/07/22 02:01 Estimat Average Glucose 105 06/06/22 20:45 Hemoglobin A1c 5.3 % (4.0-6.0) 06/06/22 20:45 Calculated Osmolality 294 mOsm/kg (285-295) 06/07/22 02:01 Calcium 9.2 mg/dL (8.5-10.5) 06/07/22 02:01 Phosphorus 3.1 mg/dL (2.5-4.5) 06/07/22 02:01 Magnesium 2.2 mg/dL (1.7-2.3) 06/07/22 02:01 Total Bilirubin 0.4 mg/dL (0.15-1.2) 06/07/22 02:01 AST 25 U/L (0-32) 06/07/22 02:01 ALT 15 U/L (0-33) 06/07/22 02:01 Alkaline Phosphatase 89 IU/L (35-105) 06/07/22 02:01 Troponin T Gen 5 ng/L 26 ng/L (0-10) H 06/06/22 20:45 Troponin T Baseline 43 ng/L (0-10) H 06/07/22 05:30 Troponin T 120 Minute 40.67 ng/L (0-10) H 06/07/22 07:36 Delta Troponin T -2.33 ABS# (0-10) L 06/07/22 07:36 Troponin T Hi Sens 6Hr 38.38 ng/L (0-10) H 06/07/22 11:32 Troponin T Hi Sens 6Hr Delta -4.62 ng/L (0-12) L 06/07/22 11:32 C-Reactive Protein 3.0 mg/L (0.0-4.9) 06/06/22 20:45 NT-Pro-B Natriuret Pep 1241 pg/mL (0-450) H 06/07/22 02:01 Total Protein 6.1 g/dL (6.6-8.7) L 06/07/22 02:01 Albumin 3.6 g/dL (3.5-5.2) 06/07/22 02:01 Globulin 2.5 g/dL (1.3-4.6) 06/07/22 02:01 Triglycerides 78 mg/dL (0-150) 06/06/22 20:45 Cholesterol 175 mg/dL (0-200) 06/06/22 20:45 LDL Cholesterol, Calc 91 mg/dL (50-129) 06/06/22 20:45 HDL Cholesterol 68 mg/dL (60-100) 06/06/22 20:45 LDL/HDL Ratio 1.34 RATIO (0.00-3.22) 06/06/22 20:45 Cholesterol/HDL Ratio 2.57 mg/dL (0.0-4.40) 06/06/22 20:45 Lipase 17 U/L (13-60) 06/06/22 20:45 Procalcitonin 0.07 ng/mL (0-0.5) 06/06/22 20:45 TSH 1.71 uIU/mL (0.27-4.20) 06/06/22 20:[address] Abd/Pel: Radiologist's impression: Cholelithiasis with gallbladder dilation Vitals Last Vital Signs Temp 98.0 F 06/07/22 15:17 Pulse 58 L 06/07/22 15:17 Resp 18 06/07/22 15:17 BP 151/79 06/07/22 15:17 Pulse Ox 95 06/07/22 15:17 O2 Del Method 06/07/22 15:17 Discharge Plan Discharge Patient Disposition: Home Condition: Stable Prescriptions: New tamsulosin 0.4 mg Capsule 0.4 mg PO DAILY@0900 Qty: 30 0RF Magnesium 250 mg PO DAILY@0900 Qty: 30 0RF Protonix 40 mg tablet,delayed release (DR/EC) 40 mg PO QAM Qty: 30 0RF Rx Instructions: on an empty stomach, 1 hr before a meal Continued amiodarone 200 mg tablet 200 mg PO DAILY@0900 amlodipine 5 mg tablet 5 mg PO DAILY@0900 potassium chloride 10 mEq tablet extended release 10 meq PO DAILY@0900 furosemide 20 mg tablet 20 mg PO DAILY@0900 lovastatin 20 mg tablet 20 mg PO DAILY isosorbide mononitrate 10 mg tablet 10 mg PO BID citalopram [Celexa] 20 mg tablet 20 mg PO DAILY@0900 metoprolol tartrate 25 mg tablet 12.5 mg PO BID@0900,2100 (DME) Bedside Commode See Rx Instructions .Route .MEDSUPPLY Qty: 1 0RF Rx Instructions: As directed losartan 50 mg Tablet 50 mg PO DAILY@0900 Qty: 30 0RF Zyrtec 10 mg Tablet 5 mg PO DAILY acetaminophen 500 mg Tablet 500 - 1,000 mg PO Q6H PRN (Reason: Pain) Eliquis 2.5 mg tablet 2.5 mg PO BID Discharge Orders: Discharge Order (Routine); Ordered 06/07/22 Ordered By: Aryan Hernandez Referrals: State In Home Service Set up [Other] (You can call this number to see if you qualify for in home services. ) Lidia Stephens PA [Primary Care Provider] - 06/15/22 3:00 pm Discharge Diet: Advance as tolerated Discharge Activity: Increase activity as tolerated Patient Instructions: Tamsulosin (By mouth), Pantoprazole (By mouth), Magnesium (By mouth), A-fib (Atrial Fibrillation) (ED), Chest Pain (DC), Chest Pain Stoplight Discharge Attestations Time Spent in Discharge Care*: greater than 30 min Status at Discharge: Cognitive status at discharge: cognitively intact, Behavioral status at discharge: cooperative, Quality Metrics Clinical Quality Measures [ No reported AMI, CVA or VTE this stay] Coding Level of Care Code Acute Chg FW DC note Diagnoses Abdominal pain R10.9 Essential hypertension I10 Atrial fibrillation I48.91
--- NOTE | 2022-06-07 16:16 | PC.NURSE ---
Discussed discharge follow up appointments, medications and discharge with patient and daughter. Verbalized understanding.
--- NOTE | 2022-06-07 22:38 | USCV_ITS ---
Melba Leroy Age: 82 Gender: F : 1940 Exam Date: 06/07/2022 14:16 Ordering Phys: Julio C Hoffman MD Technologist: Matias Moya Exam Location: [facility] [place] Indication: Chest pain BP: / HR: 59 Rhythm: Sinus Technical Quality: Adequate MEASUREMENTS (Male / Female) Normal Values 2D ECHO LV Diastolic Diameter PLAX 2.6 cm 4.2 - 5.9 / 3.9 - 5.3 cm LV Systolic Diameter PLAX 1.6 cm IVS Diastolic Thickness 1.2 cm 0.6 - 1.0 / 0.6 - 0.9 cm IVS Systolic Thickness 1.1 cm LVPW Diastolic Thickness 1.1 cm 0.6 - 1.0 / 0.6 - 0.9 cm LVPW Systolic Thickness 0.9 cm LVOT Diameter 2.1 cm LV Ejection Fraction 2D Teich 67.9 % LV Ejection Fraction MOD 2C 69.3 % LV Ejection Fraction 2C AL 68.5 % LA Diameter 3.5 cm M-MODE Aortic Annulus Diameter 2.9 cm LA Ao Ratio MM 1.3 DOPPLER TR Peak Velocity 142.0 cm/s TR Peak Gradient 8.1 mmHg TV Peak E Velocity 77.0 cm/s Right Atrial Pressure 3.0 mmHg Pulmonary Artery Systolic Pressu 11.1 mmHg PV Peak Velocity 113.0 cm/s FINDINGS Left Ventricle Normal left ventricular size, systolic function with no regional wall motion abnormalities. Left ventricular ejection fraction is estimated at 65-70%. Right Ventricle Normal right ventricular size and systolic function. Pacemaker wire visualized in the right ventricle. Right Atrium Right atrium not well visualized. Left Atrium Mildly increased left atrial size. Mitral Valve Moderate mitral annular calcification. Mildly thickened mitral valve. No significant mitral valve regurgitation. Aortic Valve Structurally normal trileaflet aortic valve. Tricuspid Valve Tricuspid valve not well visualized. Pulmonic Valve Pulmonic valve not well visualized. No pulmonary valve stenosis. No pulmonary valve regurgitation. Pericardium No pericardial effusion. Aorta Normal size aortic root and proximal ascending aorta. IVC Inferior vena cava not visualized. CONCLUSIONS 1. Normal left ventricular size, systolic function and wall thickness, with no regional wall motion abnormalities. Left ventricular ejection fraction is estimated at 65-70 %. 2. There may not have been any significant change when compared to study dated 02/12/2021. Freda Cardenas MD (Electronically Signed) Final Date: 07 June 2022 18:10 S
== END 2022-06-07 16:52 | disposition home or self-care (01) ==
LOC: ER 20:41 → ER IP 23:29 → MEDSURG 23:33
PROVIDERS: Admitting Provider Family Medicine; Emergency Provider Emergency Medicine; PCP Physician Assistant; Visit Provider Internal Medicine
DX: R10.13 Epigastric pain (principal); K80.20 Calculus of gallbladder without cholecystitis without obstruction; Z95.0 Presence of cardiac pacemaker; K21.9 Gastro-esophageal reflux disease without esophagitis; Z79.01 Long term (current) use of anticoagulants; I11.0 Hypertensive heart disease with heart failure; I50.30 Unspecified diastolic (congestive) heart failure; M19.90 Unspecified osteoarthritis, unspecified site; I48.19 Other persistent atrial fibrillation
CPT/HCPCS: 36415; 71045; 74176; 80053; 80061; 83036; 83690; 83735; 83880; 84100; 84145; 84443; 84484; 85025; 85610; 86140; 87040; 93005; 93306; 94664; 96374; 99285; C9113; G0378

== ENCOUNTER → 2022-11-12 10:09 | Outpatient (BNVA) | payer MEDICARE, MEDICAID, SELFPAY | PROVIDERS: PCP Physician Assistant; Visit Provider Internal Medicine | DX: Z45.010 Encounter for checking and testing of cardiac pacemaker pulse generator [battery] (principal) | CPT/HCPCS: 93280 ==

== ENCOUNTER 2024-03-30 18:49 | Observation (INO) | payer MEDICARE, MEDICAID, SELFPAY ==
[2024-03-30 18:52] VITALS: BP 184/74; PULSE 77; RESP 18; TEMP 36.6; O2SAT 99
--- NOTE | 2024-03-30 19:02 | ECG_ITS ---
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 Measurements Intervals [place] Rate: 76 P: 64 GA: 210 QRS: -46 QRSD: 136 T: -7 QT: 442 QTc: 497 Interpretive Statements SINUS RHYTHM WITH FIRST DEGREE AV BLOCK RIGHT BUNDLE BRANCH BLOCK [120+ ms QRS DURATION, UPRIGHT V1, 40+ ms S IN I/aVL/V4/V5/V6] LEFT ANTERIOR FASCICULAR BLOCK [QRS AXIS <= -45, QR IN I, RS IN II] Compared to ECG 06/07/2022 08:51:50 First degree AV block now present Left anterior fascicular block now present Atrial-paced complex(es) or rhythm no longer present Left-axis deviation no longer present Electronically Signed On 04-01-2024 20:13:21 CDT by Rian Grande M.D. [email or web address]
[2024-03-30 19:05] VITALS: BP 202/88; PULSE 75; RESP 16; O2SAT 96
--- NOTE | 2024-03-30 19:15 | XRR_ITS ---
PROCEDURE INFORMATION: Exam: XR Chest Exam date and time: 03/30/2024 7:26 PM Age: 84 years old Clinical indication: Chest wall pain; Additional info: Chest pain TECHNIQUE: Imaging protocol: Radiologic exam of the chest. Views: 1 view. COMPARISON: CR XR chest 1V portable [id number] 06/06/2022 10:51 PM FINDINGS: Tubes, catheters and devices: Two lead pacemaker device. Lungs: Unremarkable. No consolidation. Pleural spaces: Unremarkable. No pleural effusion. No pneumothorax. Heart/Mediastinum: Unremarkable. No cardiomegaly. Vasculature: There is minimal calcified plaque in the aortic arch. Bones/joints: Unremarkable. XR/XR chest 1V portable [id number] IMPRESSION: No evidence for acute cardiopulmonary disease.
--- NOTE | 2024-03-30 19:19 | ED_ITS ---
HPI - Chest Pain 2 General: Chief Complaint: Chest Pain Stated Complaint: CHEST PAIN Time Seen by Provider: 03/30/24 18:52 Source: patient Mode of arrival: EMS History of Present Illness: 84-year-old female presents emergency ro om via EMS she states she has had what she initially described as chest pain to the nurse but when I seen her she is actually describing it more of epigastric pain radiating to her back no specific chest pain no pain radiating into the neck or arms. She has had several episodes of vomiting. She has not had any hematemesis or coffee-ground emesis she did have a couple of episodes of diarrhea in at least 102 associated with small amount of bright red blood. She is on Eliquis for atrial fibrillation. Family members at the bedside suspect that she has not been taking her medications regularly. She still lives at home they try to help with making sure she takes them regularly but states that frequently they think she is missing them. MD complaint: chest pain Timing of current episode: episodic Prior episodes: Yes Onset: during rest Pain radiation: back Severity: mild Quality: aching Relieving factors: nothing Exacerbating factors: nothing Associated symptoms: Deny abdominal pain, diaphoresis, dyspnea, fever(s), leg edema, nausea, palpitations, sense of impending doom, syncope or vomiting Review of Systems 2 Const: Denies: fever(s), chills or diaphoresis Card: Denies: chest pain, palpitations or syncope Resp: Denies: dyspnea GI: Denies: abdominal pain, nausea or vomiting : Denies: dysuria, urinary frequency or urinary urgency Musc: Denies: neck pain or back pain Skin/Breast: Denies: rash PFSH ED 2 PFSH: Medical History Atrial fibrillation Arthritis History of anemia 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 Tachy-yun syndrome Sick sinus syndrome Hyperlipidemia Essential hypertension GERD (gastroesophageal reflux disease) Persistent atrial fibrillation Surgical History History of back surgery Family History Father CAD (coronary artery disease) Lung disease Mother Dementia Hypertension Sister Dementia Other Diabetes Social History (Reviewed 06/07/24 @ 19:19 by OG [place] Smoking and tobacco/nicotine status: never used tobacco/nicotine Alcohol intake: never Substance/Drug Use: never Physical Exam 2 Const: COMMON NORMALS: no acute distress GENERAL APPEARANCE: cooperative and comfortable ORIENTATION/CONSCIOUSNESS: Yes awake, Yes oriented to person, Yes oriented to place and Yes oriented to time HENMT: COMMON NORMALS: normocephalic, atraumatic and hearing grossly normal bilaterally HEAD & SCALP: normocephalic and atraumatic Resp: COMMON NORMALS: normal respiratory effort, No retractions, No use of accessory muscles and clear to auscultation bilaterally AUSCULTATION: clear to auscultation bilaterally Cardio: COMMON NORMALS: regular rate, regular rhythm and No murmurs present (Cardio) RATE: regular rate RHYTHM: regular rhythm GI: COMMON NORMALS: Soft to palpation and No hepatosplenomegaly present A USCULTATION: Yes normoactive bowel sounds PALPATION: Yes Soft to palpation, No Tenderness to palpation present (GI), No Guarding due to palpation present (GI) and Yes No hepatosplenomegaly present Extremity: COMMON NORMALS: normal to inspection, capillary refill normal, no clubbing, cyanosis or edema, no calf tenderness and no pedal edema Neuro: SENSORIUM/ORIENTATION: Yes oriented to person, Yes oriented to place and Yes oriented to time Skin: COMMON NORMALS: no rashes or lesions noted GENERAL SKIN EXAM: no rashes or lesions noted Course 2 Vital Signs: Vital signs: Vital Signs Temperature 97.8 F 03/30/24 18:52 Pulse Rate 67 03/30/24 21:25 Respiratory Rate 18 03/30/24 21:25 Blood Pressure 164/71 03/30/24 21:25 Pulse Oximetry 96 03/30/24 21:25 Oxygen Delivery Me thod Room Air 03/30/24 21:25 MDM - Chest Pain Medical Decision Making Leukocytosis possible pyelonephritis although the urine shows more hematuria. On the CT there is cholelithiasis some renal cyst but there is no evidence of nephrolithiasis. There is some perinephric stranding concerning for pyelonephritis. There was a mild bump in her troponin as well she did initially presented with some epigastric type chest pain radiating to her back. Discussed with the hospitalist will admit she is allergic to penicillin we will put her on Cipro and Flagyl. Cultures are done. Medical Records I reviewed the patient's medical records. Lab Data I reviewed the patient's lab results. 03/30/24 17:24 03/30/24 17:24 Radiology Impressions Chest X-Ray 03/30/24 19:15 IMPRESSION: No evidence for acute cardiopulmonary disease. Abdomen/Pelvis CT 03/30/24 19:26 IMPRESSION: 1. Cholelithiasis and choledocholithiasis. Common bile duct is not optimally visualized. Consider MRCP for further evaluation as clinically warranted. 2. There is bilateral perinephric stranding which may be chronic in nature. If acute pyelonephritis is suspected, CT scan abdomen/pelvis with IV contrast, renal protocol, is recommended for further evaluation. Laboratory Results WBC 21.31 10^3/uL (3.29-11.43) H 03/30/24 17:24 RBC 5.10 10^6/uL (3.85-5.65) 03/30/24 17:24 Hgb 12.90 g/dL (11.27-16.99) 03/30/24 17:24 Hct 41.5 % (36-47) 03/30/24 17:24 MCV 81.4 fl (85-98) L 03/30/24 17:24 MCH 25.3 pg (27-33) L 03/30/24 17:24 MCHC 31.1 g/dL (30-55) 03/30/24 17:24 RDW 15.3 % (12.1-15.1) H 03/30/24 17:24 Plt Count 350 10^3/cmm (157-399) 03/30/24 17:24 MPV 10.4 fL (7.4-10.4) 03/30/24 17:24 Neut % (Auto) 85.4 % 03/30/24 17:24 Lymph % (Auto) 8.5 % 03/30/24 17:24 [place] % (Auto) 5.3 % 03/30/24 17:24 Eos % (Auto) 0.0 % 03/30/24 17:24 Baso % (Auto) 0.1 % 03/30/24 17:24 Neut # (Auto) 18.20 10^3/uL (1.8-7.7) H 06/07/24 17:24 Lymph # (Auto) 1.8 10^3/uL (0.8-4.8) 03/30/24 17:24 [place] # (Auto) 1.1 10^3/uL (0.2-0.9) H 03/30/24 17:24 Eos # (Auto) 0.0 10^3/uL (0.0-0.8) 03/30/24 17:24 Baso # (Auto) 0.0 10^3/uL (0.0-0.1) 03/30/24 17:24 Nucleated RBC % (auto) 0 % 03/30/24 17:24 Nucleated RBCs # 0.0 /100WBC 03/30/24 17:24 Sodium 138 mmol/L (136-145) 03/30/24 17:24 Potassium 3.4 mmol/L (3.5-5.1) L 03/30/24 17:24 Chloride 102 mmol/L (98-107) 03/30/24 17:24 Carbon Dioxide 19 mmol/L (22-29) L 03/30/24 17:24 Anion Gap 20.4 (5-19) H 03/30/24 17:24 BUN 19 mg/dL (8-23) 03/30/24 17:24 Creatinine 1.1 mg/dL (0.5-0.9) H 03/30/24 17:24 GFR Calculation Not Reportable 03/30/24 17:24 Glucose 191 mg/dL (65-115) H 03/30/24 17:24 Calculated Osmolality 293 mOsm/kg (285-295) 03/30/24 17:24 Calcium 9.8 mg/dL (8.5-10.5) 03/30/24 17:24 Total Bilirubin 0.5 mg/dL (0.15-1.2) 03/30/24 17:24 AST 27 U/L (0-32) 03/30/24 17:24 ALT 17 U/L (0-33) 03/30/24 17:24 Alkaline Phosphatase 99 U/L (35-105) 03/30/24 17:24 Troponin T Baseline 42 ng/L (0-10) H 03/30/24 17:24 Troponin T 120 Minute 51.71 ng/L (0-10) H 03/30/24 21:25 Delta Troponin T 9.71 ABS# (0-10) 03/30/24 21:25 Total Protein 6.8 g/dL (6.6-8.7) 03/30/24 17:24 Albumin 4.4 g/dL (3.5-5.2) 03/30/24 17:24 Globulin 2.4 g/dL (1.3-4.6) 03/30/24 17:24 Lipase 18 U/L (13-60) 03/30/24 17:24 Urine Color Yellow (Yellow) 03/30/24 20:15 Urine Appearance Clear (CLEAR) 03/30/24 20:15 Urine pH 8 (5-7) H 03/30/24 20:15 Ur Specific [place] 1.010 (1.005-1.030) 03/30/24 20:15 Urine Protein 3+ (Negative) H 03/30/24 20:15 Urine Glucose (UA) Norm (Normal) 03/30/24 20:15 Urine Ketones 1+ (Negative) H 03/30/24 20:15 Urine Blood 2+ (Negative) H 03/30/24 20:15 Urine Nitrate Negative (Negative) 03/30/24 20:15 Urine Bilirubin Neg (Negative) 03/30/24 20:15 Prot Sulfosalicylic Acd Positive (Negative) 03/30/24 20:15 Urine Urobilinogen Neg mg/dL (Negative) 03/30/24 20:15 Ur Leukocyte Esterase Negative (Negative) 03/30/24 20:15 Urine RBC 5-10 /hpf (0-2) H 03/30/24 20:15 Urine WBC 0-4 /hpf (0-5) H 03/30/24 20:15 Ur Squamous Epith Cells 0-4 /hpf (0-5) H 03/30/24 20:15 Calcium Oxalate Crystal 0-4 /hpf H 03/30/24 20:15 Amorphous Sediment Trace /hpf 03/30/24 20:15 Urine Bacteria 1+ /hpf (NONE) H 03/30/24 20:15 Urine Mucus Trace /hpf 03/30/24 20:15 All radiology interpretation(s) finalized by discharge Discharge Plan Discharge Condition: Stable Prescriptions: No Action amiodarone 200 mg tablet 200 mg PO DAILY@0900 amlodipine 5 mg tablet 5 mg PO DAILY@0900 potassium chloride 10 mEq tablet extended release 10 meq PO DAILY@0900 furosemide 20 mg tablet 20 mg PO DAILY@0900 lovastatin 20 mg tablet 20 mg PO DAILY isosorbide mononitrate 10 mg tablet 10 mg PO BID citalopram [Celexa] 20 mg tablet 20 mg PO DAILY@0900 metoprolol tartrate 25 mg tablet 12.5 mg PO BID@0900,2100 (DME) Bedside Commode See Rx Instructions .Route .MEDSUPPLY Qty: 1 0RF Rx Instructions: As directed losartan 50 mg Tablet 50 mg PO DAILY@0900 Qty: 30 0RF Zyrtec 10 mg Tablet 5 mg PO DAILY acetaminophen 500 mg Tablet 500 - 1,000 mg PO Q6H PRN (Reason: Pain) Eliquis 2.5 mg tablet 2.5 mg PO BID tamsulosin 0.4 mg Capsule 0.4 mg PO DAILY@0900 Qty: 30 0RF Magnesium 250 mg PO DAILY@0900 Qty: 30 0RF Protonix 40 mg tablet,delayed release (DR/EC) 40 mg PO QAM Qty: 30 0RF Rx Instructions: on an empty stomach, 1 hr before a meal Referrals: Lidia Stephens PA [Primary Care Provider] - Coding Level of Care Code ED Director Of Respiratory Therapy for Adriano Palacios
[2024-03-30] MEDS: aspirin 81 mg Chew Tablet 324 MG PO (19:26)
--- NOTE | 2024-03-30 19:26 | CTR_ITS ---
PROCEDURE INFORMATION: Exam: CT Abdomen And Pelvis Without Contrast Exam date and time: 03/30/2024 7:36 PM Age: 84 years old Clinical indication: Nausea and vomiting; Abdominal pain; Prior surgery; Surgery date: 6+ months; Surgery type: Jay; Patient HX: Epigastric/back pain with n/v. History of gerd. TECHNIQUE: Imaging protocol: Computed tomography of the abdomen and pelvis without contrast. Radiation optimization: All CT scans at this facility use at least one of these dose optimization techniques: automated exposure control; mA and/or kV adjustment per patient size (includes targeted exams where dose is matched to clinical indication); or iterative reconstruction. COMPARISON: CT abdomen pelvis wo con [id number] 06/06/2022 11:31 PM RADIATION DOSE METRICS: Total DLP (mGy-cm): 561.05 FINDINGS: Tubes, catheters and devices: Partially visualized pacemaker leads. Lungs: There are atelectatic changes at the posterior aspects of the lung bases. Diaphragm: Small to moderate hiatal hernia. Liver: Normal. No mass. Gallbladder and bile ducts: Cholelithiasis. Small rounded calcified densities in the region of the common bile duct consistent with choledocholithiasis. Pancreas: Normal. No ductal dilation. Spleen: Normal. No splenomegaly. Adrenal glands: Normal. No mass. Kidneys and ureters: There are bilateral renal cysts with benign features the larger of which measures 2.8 cm in the left kidney. Follow-up is not necessary for these lesions. Bilateral perinephric stranding may be chronic in nature. Stomach and bowel: There is diverticulosis of the colon without evidence of diverticulitis. Appendix: No evidence of appendicitis. Intraperitoneal space: Unremarkable. No free air. No significant fluid collection. Vasculature: Unremarkable. No abdominal aortic aneurysm. Lymph nodes: Unremarkable. No enlarged lymph nodes. Urinary bladder: Unremarkable as visualized. Reproductive: Unremarkable as visualized. Bones/joints: Right total hip replacement. There are degenerative changes in the visualized spine. Soft tissues: Unremarkable. CT/CT abdomen pelvis wo con [id number] IMPRESSION: 1. Cholelithiasis and choledocholithiasis. Common bile duct is not optimally visualized. Consider MRCP for further evaluation as clinically warranted. 2. There is bilateral perinephric stranding which may be chronic in nature. If acute pyelonephritis is suspected, CT scan abdomen/pelvis with IV contrast, renal protocol, is recommended for further evaluation.
[2024-03-30 19:34] LABS: Basophils % 0.1 %; Hematocrit 41.5 % (36-47); Lymphocytes # 1.8 10^3/uL (0.8-4.8); Lymphocytes % 8.5 %; Mean Corpuscular HGB Conc 31.1 g/dL (30-55); Mean Corpuscular Hemoglobin 25.3 pg (27-33); Mean Corpuscular Volume 81.4 fl (85-98); Mean Platelet Volume 10.4 fL (7.4-10.4); Monocytes # 1.1 10^3/uL (0.2-0.9); Monocytes % 5.3 %; Neutrophils % 85.4 %; Nucleated Red Blood Cells % 0 %; Platelet Count 350 10^3/cmm (157-399); Red Cell Distribution Width 15.3 % (12.1-15.1); White Blood Count 21.31 10^3/uL (3.29-11.43)
[2024-03-30 19:49] LABS: Troponin(5th) Baseline 42 ng/L (0-10)
[2024-03-30 19:52] LABS: Alanine Aminotransferase 17 U/L (0-33); Albumin Level 4.4 g/dL (3.5-5.2); Alkaline Phosphatase 99 U/L (35-105); Anion Gap 20.4 (5-19); Aspartate Amino Transferase 27 U/L (0-32); Blood Urea Nitrogen 19 mg/dL (8-23); Calcium 9.8 mg/dL (8.5-10.5); Carbon Dioxide 19 mmol/L (22-29); Chloride 102 mmol/L (98-107); Creatinine Clr Calc Pharmacy 33.3403; Globulin 2.4 g/dL (1.3-4.6); Glucose 191 mg/dL (65-115); Lipase 18 U/L (13-60); Osmolality Calculated 293 mOsm/kg (285-295); Potassium 3.4 mmol/L (3.5-5.1); Sodium 138 mmol/L (136-145); Total Bilirubin 0.5 mg/dL (0.15-1.2); Total Protein 6.8 g/dL (6.6-8.7)
[2024-03-30 20:42] LABS: Urine Appearance Clear (CLEAR); Urine Color Yellow (Yellow); pH Urine 8 (5-7)
[2024-03-30 20:43] LABS: Add Urine Microscopic? YES; Amorphous Sediment Urine TRACE /hpf; Bacteria Urine 1+ /hpf; Bilirubin Urine Neg (Negative); Blood Urine 2+ (Negative); Glucose Urine UA Norm (Normal); Ketones Urine 1+ (Negative); Leukocyte Esterase Urine Negative (Negative); Nitrate Urine Negative (Negative); Protein Urine 3+ (Negative); Squamous Epithelial Cell Urine 0-4 /hpf (0-5); Sulfosalicylic Acid Urine Positive (Negative); Urobilinogen Urine Neg (Negative); WBC Urine 0-4 /hpf (0-5)
[2024-03-30 20:44] LABS: Calcium Oxalate Crystals Urine 0-4 /hpf; Mucus Urine TRACE /hpf
[2024-03-30] MEDS: hyDRALAzine 20 mg/mL INJ 1 mL 10 MG IVP (20:54)
[2024-03-30 20:56] VITALS: BP 205/84; PULSE 69; RESP 18; O2SAT 95
[2024-03-30 21:25] VITALS: BP 164/71; PULSE 67; RESP 18; O2SAT 96
[2024-03-30 21:52] LABS: Troponin 5 2HR 51.71 ng/L (0-10); Troponin 5 2HR Delta 9.71 ABS# (0-10)
--- NOTE | 2024-03-30 22:07 | P.HP_ITS ---
Providers/Chief Complaint 2 Primary Care Provider: Lidia Stephens Chief Complaint: CHEST PAIN History of Present Illness Melba Leroy is a 84 year old female with a past medical history significant for hypertension, persistent atrial fibrillation with sick sinus syndrome status post pacemaker, hyperlipidemia, GERD, anemia, and arthritis who presents from home complaining of nausea, vomiting, dry heaving, and diarrhea. Patient reports symptom onset about 3 to 4 days ago. She also endorses associated mid to lower back pains bilaterally. She reports that symptoms is constant. She endorses associated chills. Denies fevers. Endorses associated generalized malaise and weakness. She typically lives home alone and is having trouble caring for self and her current condition. Her daughter is bedside and very supportive. In emergency department, vitals were significant for elevated blood pressure to 205/84. Labs revealed significant leukocytosis to 21.31, hypokalemia to 3.4, hyperglycemia, lactic acidosis, and elevated troponin with baseline of 42 with 2-hour repeat at 51 for delta troponin of 9.71. CRP 13.9. Lipase normal at 18. All liver enzymes were normal. Urinalysis with 1+ ketones, 1+ bacteria, leukocyte esterase negative. Nitrate negative. 0-4 WBCs. Chest x-ray was negative for acute findings. Abdominal/pelvis CT without contrast (she has a iodine contrast allergy) showed cholelithiasis and choledocholithiasis, however the common bile duct was not visualized optimally. All liver enzymes are within normal limits. CT imaging further showed bilateral perinephric stranding which was read as possibly chronic versus acute. Patient was started on Cipro/Flagyl due to history of allergy to penicillin and sulfa antibiotics. Of note, earlier this year she had a gallbladder ultrasound performed in October 2023 which revealed an abnormal gallbladder with a lobulated mass in her separable from the wall with no increased vascularity, there was increased additional echogenicity suspicious for sludge. Patient and daughter were somewhat unsure why this ultrasound was performed. She states they did not do anything with it afterwards. Review of Systems 2 Narrative: A complete review of systems was obtained and is negative except as stated in HPI. Medications/Allergies Home Medications Medication Instructions Recorded Confirmed Last Taken Type amiodarone 200 mg tablet 200 mg PO DAILY@0900 10/31/19 06/07/22 02/11/21 History citalopram 20 mg tablet (Celexa) 20 mg PO DAILY@0900 10/31/19 06/07/22 02/11/21 History isosorbide mononitrate 10 mg tablet 10 mg PO BID 10/31/19 06/07/22 02/11/21 History lovastatin 20 mg tablet 20 mg PO DAILY 10/31/19 06/07/22 02/11/21 History metoprolol tartrate 25 mg tablet 12.5 mg PO BID@0900,2100 10/31/19 06/07/22 02/11/21 History amlodipine 5 mg tablet 5 mg PO DAILY@0900 06/23/20 06/07/22 02/11/21 History furosemide 20 mg tablet 20 mg PO DAILY@0900 06/23/20 06/07/22 02/11/21 History potassium chloride 10 mEq 10 meq PO DAILY@0900 06/23/20 06/07/22 02/11/21 History tablet,extended release Bedside Commode #1 ea 02/11/21 06/07/22 Unknown Rx losartan 50 mg tablet 50 mg PO DAILY@0900 #30 tabs 02/13/21 06/07/22 Unknown Rx acetaminophen 500 mg tablet 500 - 1,000 mg PO Q6H PRN Pain 06/07/22 06/07/22 Unknown History apixaban 2.5 mg tablet (Eliquis) 2.5 mg PO BID 06/07/22 06/07/22 Unknown History cetirizine 10 mg tablet (Zyrtec) 5 mg PO DAILY 06/07/22 06/07/22 Unknown History magnesium 250 mg PO DAILY@0900 #30 tabs 06/07/22 Unknown Rx pantoprazole 40 mg tablet,delayed 40 mg PO QAM #30 tabs 06/07/22 Unknown Rx release (Protonix) tamsulosin 0.4 mg capsule 0.4 mg PO DAILY@0900 #30 caps 06/07/22 Unknown Rx Allergies Allergy/AdvReac Type Severity Reaction Status Date / Time Iodine and Iodide Containing Allergy Unknown Verified 04/29/22 14:33 Produc penicillin G Allergy rash Verified 04/29/22 14:33 Sulfa (Sulfonamide Allergy rash Verified 04/29/22 14:33 Antibiotics) PFSH Acute 2 PFSH: Medical History (Updated 03/30/24 @ 23:04 by Barry Kilgore MD) Hypertension Abdominal pain Atrial fibrillation Arthritis History of anemia 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 Tachy-yun syndrome Sick sinus syndrome Hyperlipidemia Essential hypertension GERD (gastroesophageal reflux disease) Persistent atrial fibrillation Surgical History (Updated 03/30/24 @ 22:58 by Barry Kilgore MD) Status post right hip replacement History of back surgery Family History Father CAD (coronary artery disease) Lung disease Mother Dementia Hypertension Sister Dementia Other Diabetes Social History Smoking and tobacco/nicotine status: never used tobacco/nicotine Alcohol intake: never Substance/Drug Use: never Vitals/I&O/Wt Last Vital Signs Temp 97.8 F 03/30/24 18:52 Pulse 67 03/30/24 21:25 Resp 18 03/30/24 21:25 BP 164/71 03/30/24 21:25 Pulse Ox 96 03/30/24 21:25 O2 Del Method Room Air 03/30/24 21:25 Weight last 48 hrs Weight 72.121 kg Physical Exam 2 Narrative: General: Patient is awake. Appears fatigued but pleasant. Head: Normocephalic. Atraumatic. EOM intact. Hard of hearing. Dry mucous membranes. Neck: No JVD. Cardiovascular: RRR. No gallops. No murmurs. No peripheral edema. Lungs: Clear to auscultation, no use of accessory muscles, no crackles or wheezes. Skin: No jaundice. No rashes. Abdomen: Normal bowel sounds, abdomen soft and nontender. Genito Urinary: Genital exam not performed since complaints not related. Rectal: Rectal exam not performed since no symptoms indicated blood loss. Extremities: No cyanosis or clubbing. Musculoskeletal: No swollen or erythematous joints. Neurological: Moves all 4 extremities. No myoclonus. Data 03/30/24 17:24 03/30/24 17:24 Micro: Microbiology 03/30/24 21:25 Blood Culture - Preliminary Blood SPECIMEN COLLECTED 03/30/24 21:20 Blood Culture - Preliminary Blood SPECIMEN COLLECTED A&P Assessment and plan (1) Abdominal infection: Patient presents with nausea/vomiting/diarrhea Suspect intra-abdominal infection, leading diagnosis is gastroenteritis CT reading of choledocholithiasis seems unlikely given benign LFTs CBD dilation expected given advanced age Bates sign negative on exam Given hx of abnormal gallbladder imaging, will proceed with repeat gallbladder ultrasound in a.m. N.p.o. after midnight for gallbladder US Acute pyelonephritis remains in the differential, no hydronephrosis on CT imaging, UA fairly benign Follow blood and urine cultures Start gentle IV fluids Antiemetics as needed Analgesics as needed Stool studies ordered Started on Cipro and Flagyl in ED, will continue for now (2) Hypokalemia: Hypokalemia, lactic acidosis, and metabolic acidosis likely secondary to recurrent nausea and vomiting Control underlying symptomatology Starting IV fluids Replace potassium Supportive care (3) Elevated troponin: Baseline troponin of 42, 120-minute at 51.71, delta of 9.71 Patient denies chest pain on my evaluation EKG with no acute ischemic changes Trend out troponin Cardiac monitoring (4) GERD (gastroesophageal reflux disease): Rotate IV PPI due to intractable nausea and vomiting (5) Essential hypertension: Blood pressures currently uncontrolled Continue home antiblood pressure meds as tolerated Utilize IV hydralazine as needed (6) Persistent atrial fibrillation: Continue home apixaban for stroke prophylaxis Continue home metoprolol for rate control Continue home amiodarone for rhythm control (7) Hyperlipidemia: Continue statin Plan DVT prophylaxis: Apixaban Attestations 2 Medical Necessity Statement*: Patient presents with nausea, vomiting, and diarrhea with suspicion for intra- abdominal/pelvic infection requiring IV antibiotics, antiemetics, analgesics, IV fluids, and supportive care with expected hospitalization not to cross 2 midnights. Coding Level of Care Code Acute Code for [facility] Fwd Diagnoses Abdominal infection K65.9 Hypokalemia E87.6 Elevated troponin R79.89 GERD (gastroesophageal reflux disease) K21.9 Essential hypertension I10 Persistent atrial fibrillation I48.19 Hyperlipidemia E78.5
[2024-03-30] MEDS: metroNIDAZOLE IV 500 MG/100 ML PREMIX 100 MG IV (22:15)
[2024-03-30] MEDS: ciprofloxacin 400 MG/200 ML PREMIX 200 MG IV (22:15)
[2024-03-30 22:16] VITALS: BP 186/72; PULSE 70; RESP 13; O2SAT 96
[2024-03-30 22:18] LABS: Lactic Sepsis W/Reflex 2.7 mmol/L (0.5-2.2)
[2024-03-30 22:24] LABS: C Reactive Protein 13.9 mg/L (0.0-4.9)
[2024-03-30 22:31] LABS: Procalcitonin 0.27 ng/mL (0-0.5)
--- NOTE | 2024-03-30 22:51 | ECG_ITS ---
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 Measurements Intervals [place] Rate: 66 P: 81 DE: 230 QRS: -54 QRSD: 139 T: -2 QT: 339 QTc: 356 Interpretive Statements SINUS RHYTHM WITH FIRST DEGREE AV BLOCK RIGHT BUNDLE BRANCH BLOCK [120+ ms QRS DURATION, UPRIGHT V1, 40+ ms S IN I/aVL/V4/V5/V6] LEFT ANTERIOR FASCICULAR BLOCK [QRS AXIS <= -45, QR IN I, RS IN II] Compared to ECG 03/30/2024 19:02:52 No significant changes Electronically Signed On 04-01-2024 20:36:19 CDT by Rian Grande M.D. [id number]
[2024-03-30 23:53] LABS: Reflex Lactate Order REFLEX LACTIC ORDERD
[2024-03-31] VITALS (9 sets, daily range): BP systolic 113–209; BP diastolic 56–78; PULSE 59–70; RESP 18–19; TEMP 36.4–38; O2SAT 91–95
[2024-03-31 00:42] LABS: Lactic Acid level (Lactate) 3.1 mmol/L (0.5-2.2)
[2024-03-31] MEDS: pantoprazole 40 mg SDV IVP ×2 (00:57→11:37)
[2024-03-31] MEDS: ondansetron 2 mg/ML SDV 2 mL 4 MG IVP (00:57)
[2024-03-31] MEDS: acetaminophen 325 mg Tablet 650 MG PO (00:58)
[2024-03-31] MEDS: hyDRALAzine 20 mg/mL INJ 1 mL 10 MG IVP (00:58)
[2024-03-31] MEDS: sodium chloride 0.9% 1,000 ML 100 ML IV ×2 (00:59→11:37)
--- NOTE | 2024-03-31 01:15 | ECG_ITS ---
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 Measurements Intervals [place] Rate: 66 P: 75 MI: 222 QRS: -48 QRSD: 141 T: -10 QT: 541 QTc: 570 Interpretive Statements SINUS RHYTHM WITH FIRST DEGREE AV BLOCK RIGHT BUNDLE BRANCH BLOCK [120+ ms QRS DURATION, UPRIGHT V1, 40+ ms S IN I/aVL/V4/V5/V6] LEFT ANTERIOR FASCICULAR BLOCK [QRS AXIS <= -45, QR IN I, RS IN II] PROLONGED QT INTERVAL CRITICAL TEST RESULT Compared to ECG 03/30/2024 19:02:52 Prolonged QT interval now present Electronically Signed On 04-01-2024 20:37:06 CDT by Rian Grande M.D. [id number]
[2024-03-31 02:11] LABS: Troponin 5 6HR 52.17 ng/L (0-10); Troponin 5 6HR Delta 10.17 ng/L (0-12)
[2024-03-31] MEDS: cefepime 1,000 MG in sodium chloride 0.9% (plus) 50 ML 100 MG IV (02:33)
[2024-03-31 05:38] LABS: Basophils % 0.1 %; Hematocrit 41.8 % (36-47); Lymphocytes # 0.9 10^3/uL (0.8-4.8); Lymphocytes % 4.6 %; Mean Corpuscular HGB Conc 30.4 g/dL (30-55); Mean Corpuscular Volume 82.3 fl (85-98); Mean Platelet Volume 10.3 fL (7.4-10.4); Monocytes # 0.6 10^3/uL (0.2-0.9); Monocytes % 2.7 %; Neutrophils # 18.81 10^3/uL (1.8-7.7); Nucleated Red Blood Cells % 0 %; Platelet Count 297 10^3/cmm (157-399); Red Blood Count 5.08 10^6/uL (3.85-5.65); Red Cell Distribution Width 15.6 % (12.1-15.1); White Blood Count 20.47 10^3/uL (3.29-11.43)
[2024-03-31 05:55] LABS: Alanine Aminotransferase 17 U/L (0-33); Albumin Level 3.6 g/dL (3.5-5.2); Alkaline Phosphatase 82 U/L (35-105); Aspartate Amino Transferase 30 U/L (0-32); Blood Urea Nitrogen 19 mg/dL (8-23); Calcium 9.2 mg/dL (8.5-10.5); Carbon Dioxide 19 mmol/L (22-29); Chloride 105 mmol/L (98-107); Creatinine Clr Calc Pharmacy 25.3105; Globulin 3.1 g/dL (1.3-4.6); Glucose 159 mg/dL (65-115); Magnesium 1.9 mg/dL (1.7-2.3); Osmolality Calculated 292 mOsm/kg (285-295); Phosphorus 2.8 mg/dL (2.5-4.5); Sodium 138 mmol/L (136-145); Total Bilirubin 0.6 mg/dL (0.15-1.2); Total Protein 6.7 g/dL (6.6-8.7)
[2024-03-31 05:57] LABS: Anion Gap 17.6 (5-19); Potassium 3.6 mmol/L (3.5-5.1)
[2024-03-31] MEDS: metroNIDAZOLE IV 500 MG/100 ML PREMIX 100 MG IV ×2 (05:59→15:03)
--- NOTE | 2024-03-31 06:00 | USR_ITS ---
PROCEDURE INFORMATION: Exam: US Abdomen, Limited; Right Upper Quadrant Exam date and time: 03/31/2024 8:09 AM Age: 84 years old Clinical indication: Abdominal pain; Epigastric; Additional info: Evaluate for cholecystitis TECHNIQUE: Imaging protocol: Real time ultrasound of the abdomen with image documentation. Limited exam focused on the right upper quadrant. COMPARISON: 1. CT abdomen pelvis wo con [id number] 03/30/2024 7:36 PM 2. US renal BI* [id number] 10/15/2019 3:24 PM FINDINGS: Liver: Liver measured at 12.6 cm length. No gross intrahepatic bile duct dilatation demonstrated. Suggestion of mild nodular configuration liver surface. Liver may hypoechoic, possibly starry skylar/starry night appearance. Correlate for hepatitis, cirrhosis, or other process. Gallbladder: Extensive gallbladder wall thickening, heterogeneous wall thickening, measured at 9 thickness. Possible wall edema. Lobular irregular, heterogeneous filling defects, material within gallbladder, possibly stones, soft stones, sludge tumefactive sludge, polyps, neoplasm, blood products/clots, or other process. Neuro Psych Sales Specialist indicates positive sonographic Bates's sign. Biliary ducts: Common duct measured at 3-4 mm across. No dilated common duct demonstrated. Pancreas: Pancreas not well visualized/demonstrated. Right kidney: Right kidney measured at 9.3 cm length. Possible renal sinus lipomatosis. Evidence of right renal cyst measured at about 1.5 cm. No dilated renal collecting system and no perirenal fluid demonstrated of visualized portions right kidney. Possible mildly echogenic renal parenchyma suggesting medical renal disease. Aorta: Visualized portions abdominal aorta unremarkable. Inferior vena cava: Visualized portion IVC unremarkable. Portal venous: Portal venous flow demonstrated as antegrade. US/US gall bladder [id number] IMPRESSION: 1. Extensive gallbladder wall thickening, heterogeneous wall thickening, measured at 9 thickness. Possible wall edema. Lobular irregular, heterogeneous filling defects, material within gallbladder, possibly stones, soft stones, sludge tumefactive sludge, polyps, neoplasm, blood products/clots, or other process. Neuro Psych Sales Specialist indicates positive sonographic Bates's sign. Findings compatible with cholecystitis, acute and/or chronic, or other process. Infection, neoplasm, or other process possible. 2. Suggestion of mild nodular configuration liver surface. Liver may hypoechoic, possibly starry skylar/starry night appearance. Correlate for hepatitis, cirrhosis, or other process. 3. No dilated common duct demonstrated. Portions of common duct visualized/demonstrated. 4. Please see body of report for additional findings.
--- NOTE | 2024-03-31 09:39 | P.PN_ITS ---
Subjective 2 Subjective: Leukocytosis noted No fever this morning Patient complaining of right upper quadrant pain I do not see abnormal liver enzymes but she seems to have choledocholithiasis We are not able to get MRCP because of her pacemaker over the weekend here I do not see any active sign of sepsis signs of cholangitis in case she starts back and fever with low blood pressure she will need to be transferred right away to [facility] for urgent ERCP this was conveyed clearly to the patient and the nursing staff Speak with general surgery to evaluate the patient, I will keep her n.p.o. for now Vitals/I&O/Wt Last Vital Signs Temp 97.9 F 03/31/24 07:44 Pulse 67 03/31/24 07:44 Resp 19 H 03/31/24 07:44 BP 145/68 03/31/24 07:44 Pulse Ox 91 03/31/24 07:44 O2 Del Method Room Air 03/31/24 07:44 03/30/24 03/31/24 03/31/24 22:59 06:59 14:59 Intake Total 590 / 590 340 / 340 Balance 590 / 590 340 / 340 Weight last 48 hrs Weight 57.334 kg Weight 72.575 kg Weight 72.121 kg Physical Exam 2 Narrative: Patient is awake and alert Right upper quadrant pain She is n.p.o. Nonfocal neuroexam GCS 15 No active nausea vomiting S1, S2 Nonfocal neuroexam Data 03/31/24 05:23 03/31/24 05:23 Micro: Microbiology 03/30/24 21:25 Blood Culture - Preliminary Blood SPECIMEN COLLECTED 03/30/24 21:20 Blood Culture - Preliminary Blood SPECIMEN COLLECTED A&P Assessment and plan (1) Persistent atrial fibrillation: (2) GERD (gastroesophageal reflux disease): (3) Gallstone: (4) Bile duct stone: (5) Choledocholithiasis: (6) Cholecystitis: Plan Acute cholecystitis Continue antibiotics N.p.o. Talk with general surgery Choledocholithiasis without any active signs of cholangitis Low-grade fever noted with high lactic acid and leukocytosis Hypokalemia: Replenished No active chest pain No need to start ACS protocol A-fib Hold Eliquis in case patient would need any surgical intervention Perioperative management: Hold Eliquis and losartan Hypertension: Currently normotensive A-fib without RVR Full code N.p.o. for now Attestations 2 Medical Necessity Statement*: Continue medical management Diagnoses Persistent atrial fibrillation I48.19 GERD (gastroesophageal reflux disease) K21.9 Gallstone K80.20 Bile duct stone K80.50 Choledocholithiasis K80.50 Cholecystitis K81.9
--- NOTE | 2024-03-31 10:04 | P.CONIM_ITS ---
Providers/Reason For Consult 2 Consulting Physician/Specialty*: General surgery Reason for Consult*: Acute cholecystitis Attending Physician: Cedric Valera MD Primary Care Provider: Lidia Stephens History of Present Illness History of Present Illness Melba Leroy is a 84 year old female who presented to the hospital with 3-4 days of abdominal pain and general malaise. Initial evaluation on the ER showed evidence of an elevated white count of 20,[address] scan of the abdomen and pelvis was negative for evidence of acute biliary process but there was evidence of a possible choledocholithiasis with bile duct dilation. A follow-up ultrasound showed no evidence of gallbladder wall thickening and incomplete visualization of the common bile duct. I was consulted for this findings. Review of Systems 2 General: Reports: 10 or more systems reviewed and unremarkable except in HPI and below Medications/Allergies Home Medications Medication Instructions Recorded Confirmed Last Taken Type amiodarone 200 mg tablet 200 mg PO DAILY@0900 10/31/19 06/07/22 02/11/21 History citalopram 20 mg tablet (Celexa) 20 mg PO DAILY@0900 10/31/19 06/07/22 02/11/21 History isosorbide mononitrate 10 mg tablet 10 mg PO BID 10/31/19 06/07/22 02/11/21 History lovastatin 20 mg tablet 20 mg PO DAILY 10/31/19 06/07/22 02/11/21 History metoprolol tartrate 25 mg tablet 12.5 mg PO BID@0900,2100 10/31/19 06/07/22 02/11/21 History amlodipine 5 mg tablet 5 mg PO DAILY@0906/23/20 06/07/22 02/11/21 History furosemide 20 mg tablet 20 mg PO DAILY@0900 06/23/20 06/07/22 02/11/21 History potassium chloride 10 mEq 10 meq PO DAILY@89906/23/20 06/07/22 02/11/21 History tablet,extended release Bedside Commode #1 ea 02/11/21 06/07/22 Unknown Rx losartan 50 mg tablet 50 mg PO DAILY@0900 #30 tabs 02/13/21 06/07/22 Unknown Rx acetaminophen 500 mg tablet 500 - 1,000 mg PO Q6H PRN Pain 06/07/22 06/07/22 Unknown History apixaban 2.5 mg tablet (Eliquis) 2.5 mg PO BID 06/07/22 06/07/22 Unknown History cetirizine 10 mg tablet (Zyrtec) 5 mg PO DAILY 06/07/22 06/07/22 Unknown History magnesium 250 mg PO DAILY@0900 #30 tabs 06/07/22 Unknown Rx pantoprazole 40 mg tablet,delayed 40 mg PO QAM #30 tabs 06/07/22 Unknown Rx release (Protonix) tamsulosin 0.4 mg capsule 0.4 mg PO DAILY@0900 #30 caps 06/07/22 Unknown Rx Allergies Allergy/AdvReac Type Severity Reaction Status Date / Time Iodine and Iodide Containing Allergy Unknown Verified 04/29/22 14:33 Produc penicillin G Allergy rash Verified 04/29/22 14:33 Sulfa (Sulfonamide Allergy rash Verified 04/29/22 14:33 Antibiotics) Current Medications Generic Name Dose Route Start Last Admin Trade Name Freq PRN Reason Stop Dose Admin Acetaminophen 650 mg 03/30/24 23:43 03/31/24 00:58 Acetaminophen 325 Mg Tablet PO 650 mg Q6H PRN Administration Mild/Mod Pain Or Temp >/= 101 Hydralazine HCl 10 mg 03/30/24 23:43 03/31/24 00:58 Hydralazine 20 Mg/Ml Inj 1 Ml IVP 10 mg Q4H PRN Administration SBP>180mmHg or DBP>110mmHG Sodium Chloride 1,000 mls @ 100 mls/hr 03/30/24 23:43 03/31/24 00:59 Sodium Chloride 0.9% IV 100 mls/hr .Q10H ASHLEY Administration Metronidazole 500 mg in 100 mls @ 100 mls/hr 03/31/24 06:15 03/31/24 07:13 Flagyl Iv IV Infused Q8H ASHLEY Infusion Protocol Cefepime HCl 1,000 mg/ Sodium 50 mls @ 100 mls/hr 03/31/24 01:45 03/31/24 04:18 Chloride IV Infused Q24H ASHLEY Infusion Protocol Ondansetron HCl 4 mg 03/30/24 23:43 03/31/24 00:57 Ondansetron 2 Mg/Ml Sdv 2 Ml IVP 4 mg Q8H PRN Administration vomiting, or N/V if npo Pantoprazole Sodium 40 mg 03/30/24 23:43 03/31/24 00:57 Pantoprazole 40 Mg Sdv IVP 40 mg Q12H ASHLEY Administration PFSH Acute 2 PFSH: Medical History (Updated 03/31/24 @ 09:45 by Cedric Valera MD) Hypertension Abdominal pain Atrial fibrillation Arthritis History of anemia 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 Tachy-yun syndrome Sick sinus syndrome Hyperlipidemia Essential hypertension GERD (gastroesophageal reflux disease) Persistent atrial fibrillation Surgical History (Updated 03/30/24 @ 22:58 by Barry Kilgore MD) Status post right hip replacement History of back surgery Family History Father CAD (coronary artery disease) Lung disease Mother Dementia Hypertension Sister Dementia Other Diabetes Social History Smoking and tobacco/nicotine status: never used tobacco/nicotine Alcohol intake: never Substance/Drug Use: never Vitals/I&O/Wt Last Vital Signs Temp 97.9 F 03/31/24 07:44 Pulse 67 03/31/24 07:44 Resp 19 H 03/31/24 07:44 BP 145/68 03/31/24 07:44 Pulse Ox 91 03/31/24 07:44 O2 Del Method Room Air 03/31/24 07:44 03/30/24 03/31/24 03/31/24 22:59 06:59 14:59 Intake Total 590 / 590 340 / 340 Balance 590 / 590 340 / 340 Weight last 48 hrs Weight 126 lb 6.4 oz Weight 160 lb Weight 159 lb Physical Exam 2 Narrative: General : Patient appears to be frail, no acute distress, he is oriented but forgetful Head : Normal cephalic, a-traumatic. Nose : Mucous membranes are without erythema. Lungs : Equal chest rise bilaterally, no use of accessory muscles, trachea is midline. CV : Rate and rhythm are normal. Abdomen : Soft, there is tenderness in the right upper quadrant, positive Bates sign. Extremities : No edema. Upper extremities are normal bilaterally. Back : non-tender to palpation, no CVA tenderness. Data 03/31/24 05:23 03/31/24 05:23 Micro: Microbiology 03/30/24 21:25 Blood Culture - Preliminary Blood SPECIMEN COLLECTED 03/30/24 21:20 Blood Culture - Preliminary Blood SPECIMEN COLLECTED A&P Assessment and plan (1) Choledocholithiasis: (2) Cholecystitis: Plan After complete history, physical examination and review of all clinical data the following is my assessment. This is a patient with multiple medical comorbidities including sick sinus syndrome, chronic heart disease, chronic A- fib history anticoagulation who presents with a clinical picture consistent with the possibility of acute cholecystitis with possible choledocholithiasis. Is important to note that the patient had had previous ultrasound of the gallbladder showing evidence of a possible soft tissue mass at this level neoplasm could not be excluded. Patient currently is a poor surgical candidate, she has significant heart disease, troponins are elevated during this admission, is on chronic anticoagulation,and she has a moderate acute cholecystitis with a Charlson comorbidity index of 6 and a ASA score of at least 3. With this findings current recommendations by [place] guidelines 18 indicate that patient will benefit from antibiotic management with early biliary decompression and the possibility of a delayed cholecystectomy after optimization and improvement of acute phase. My recommendation will be for patient to be transferred to higher level of care for cholecystostomy tube placement for biliary decompression. An MRCP could also be indicated and could be done at a higher level of care facility to evaluate for the possibility of neoplasia in the gallbladder before proceeding with surgery, this will also allow to rule out choledocholithiasis although probability of this is low as patient liver enzymes are unremarkable. Went to transition antibiotics to an antibiotic with better penetration at the level of the gallbladder this can be Augmentin or Zosyn and Flagyl. -Patient has a prohibitive surgical risk, recommend transfer to higher level of care for cholecystostomy tube placement for biliary decompression. (CCI6, ASA3/4) -transition to augmenting and flagyl or zosyn and flagyl for better peenetration on the gallblader. -continue NPO -All other care per medical team Coding Level of Care Code 52299 Diagnoses Choledocholithiasis K80.50 Cholecystitis K81.9
[2024-03-31] MEDS: tamsulosin 0.4 mg Capsule 0.400000000000000022 MG PO (10:21)
[2024-03-31] MEDS: citalopram 20 mg Tablet PO (10:21)
[2024-03-31] MEDS: amiodarone 200 mg Tablet PO (10:21)
[2024-03-31] MEDS: metoprolol tartrate 25 mg Tablet 12.5 MG PO (10:22)
[2024-03-31] MEDS: cetirizine 10 mg Tablet 5 MG PO (10:22)
[2024-03-31] MEDS: potassium chloride ER 10 mEq Tablet PO (10:22)
[2024-03-31] MEDS: isosorbide mononitrate 20 mg Tablet 10 MG PO (10:22)
[2024-03-31] MEDS: amlodipine 5 mg Tablet PO (10:22)
[2024-03-31] MEDS: morphine 4 mg/mL SDV 1 mL 2 MG IVP ×2 (10:23→15:05)
[2024-03-31] MEDS: lactated ringers 1,000 ML 999 ML IV (11:36)
--- NOTE | 2024-03-31 15:48 | PM.TDS ---
Transfer Summary Providers Date of Admission: 03/30/24 22:08 Date of Discharge/Transfer: 03/31/24 Attending Provider at Admission: Barry Kilgore MD Attending Provider at Transfer: Cedric Valera MD Primary Care Provider: Lidia Stephens Transfer Plans: Anticipated date of transfer: 03/31/24. Receiving Facility: [facility]. Diagnoses at Discharge Discharge Diagnosis (1) Choledocholithiasis: Status: Acute (2) Cholecystitis: Status: Acute Reason for Visit Reason for Visit CHEST PAIN Brief History: Melba Leroy is a 84 year old female with a past medical history significant for hypertension, persistent atrial fibrillation with sick sinus syndrome status post pacemaker, hyperlipidemia, GERD, anemia, and arthritis who presents from home complaining of nausea, vomiting, dry heaving, and diarrhea. Patient reports symptom onset about 3 to 4 days ago. She also endorses associated mid to lower back pains bilaterally. She reports that symptoms is constant. She endorses associated chills. Denies fevers. Endorses associated generalized malaise and weakness. She typically lives home alone and is having trouble caring for self and her current condition. Her daughter is bedside and very supportive. In emergency department, vitals were significant for elevated blood pressure to 205/84. Labs revealed significant leukocytosis to 21.31, hypokalemia to 3.4, hyperglycemia, lactic acidosis, and elevated troponin with baseline of 42 with 2-hour repeat at 51 for delta troponin of 9.71. CRP 13.9. Lipase normal at 18. All liver enzymes were normal. Urinalysis with 1+ ketones, 1+ bacteria, leukocyte esterase negative. Nitrate negative. 0-4 WBCs. Chest x-ray was negative for acute findings. Abdominal/pelvis CT without contrast (she has a iodine contrast allergy) showed cholelithiasis and choledocholithiasis, however the common bile duct was not visualized optimally. All liver enzymes are within normal limits. CT imaging further showed bilateral perinephric stranding which was read as possibly chronic versus acute. Patient was started on Cipro/Flagyl due to history of allergy to penicillin and sulfa antibiotics. Of note, earlier this year she had a gallbladder ultrasound performed in October 2023 which revealed an abnormal gallbladder with a lobulated mass in her separable from the wall with no increased vascularity, there was increased additional echogenicity suspicious for sludge. Patient and daughter were somewhat unsure why this ultrasound was performed. She states they did not do anything with it afterwards. Hospital Course Hospital Course Patient presented with abdominal pain and has been diagnosed with sepsis secondary to acute cholecystitis. General surgery was consulted. After complete history, physical examination and review of all clinical data the following is my assessment. This is a patient with multiple medical comorbidities including sick sinus syndrome, chronic heart disease, chronic A-fib history anticoagulation who presents with a clinical picture consistent with the possibility of acute cholecystitis with possible choledocholithiasis. Is important to note that the patient had had previous ultrasound of the gallbladder showing evidence of a possible soft tissue mass at this level neoplasm could not be excluded. Patient currently is a poor surgical candidate, she has significant heart disease, troponins are elevated during this admission, is on chronic anticoagulation,and she has a moderate acute cholecystitis with a Charlson comorbidity index of 6 and a ASA score of at least 3. With this findings current recommendations by [place] guidelines 18 indicate that patient will benefit from antibiotic management with early biliary decompression and the possibility of a delayed cholecystectomy after optimization and improvement of acute phase. My recommendation will be for patient to be transferred to higher level of care for cholecystostomy tube placement for biliary decompression. An MRCP could also be indicated and could be done at a higher level of care facility to evaluate for the possibility of neoplasia in the gallbladder before proceeding with surgery, this will also allow to rule out choledocholithiasis although probability of this is low as patient liver enzymes are unremarkable. Went to transition antibiotics to an antibiotic with better penetration at the level of the gallbladder this can be Augmentin or Zosyn and Flagyl. -Patient has a prohibitive surgical risk, recommend transfer to higher level of care for cholecystostomy tube placement for biliary decompression. (CCI6, ASA3/4) -transition to augmenting and flagyl or zosyn and flagyl for better peenetration on the gallblader. With above recommendation, transfer to higher level of care was attempted. We called 7 hospitals and either there was no bed available or the service required was not available. Finally spoke to [facility] in [facility] and patient has been accepted for transfer. Patient will be transferred there in stable condition at this time. Will continue IV antibiotics. Eliquis has been held since admission. Family updated Physical Exam Narrative: Patient is awake and alert Right upper quadrant pain She is n.p.o. Nonfocal neuroexam GCS 15 No active nausea vomiting S1, S2 Nonfocal neuroexam TS Data Studies Completed and Pending Pending at discharge Category Date Time Status Blood Culture Stat Lab 03/30/24 21:25 Results C.Diff PCR (Lab) Routine Lab 03/30/24 23:43 Ordered CMP [Comprehensive Metabolic Panel] AM LABS Lab 04/01/24 04:00 Ordered Complete Blood Count w/Auto AM LABS Lab 04/01/24 04:00 Ordered Immunochemical Fecal OCB Routine Lab 03/30/24 23:43 Ordered Lactic Sepsis W/Reflex Routine Lab 03/31/24 14:37 Ordered Lactoferrin Routine Lab 03/30/24 23:43 Ordered OVA and Parasites, Conc and PE Routine Lab 03/30/24 23:43 Ordered Salmonella / Shigella / Campy Routine Lab 03/30/24 23:43 Ordered Urine Culture Stat Lab 03/30/24 20:15 Received Completed Studies During Hospitalization Category Date Time Status CT abdomen pelvis wo con [id number] Stat Cat Scan 03/30/24 19:26 Completed XR chest 1V portable [id number] Stat Exams 03/30/24 19:15 Completed US gall bladder [id number] Routine Ultrasound 03/31/24 06:00 Completed Laboratory Last Values WBC 20.47 10^3/uL (3.29-11.43) H 03/31/24 05:23 RBC 5.08 10^6/uL (3.85-5.65) 03/31/24 05:23 Hgb 12.70 g/dL (11.27-16.99) 03/31/24 05:23 Hct 41.8 % (36-47) 03/31/24 05:23 MCV 82.3 fl (85-98) L 03/31/24 05:23 MCH 25.0 pg (27-33) L 03/31/24 05:23 MCHC 30.4 g/dL (30-55) 03/31/24 05:23 RDW 15.6 % (12.1-15.1) H 03/31/24 05:23 Plt Count 297 10^3/cmm (157-399) 03/31/24 05:23 MPV 10.3 fL (7.4-10.4) 03/31/24 05:23 Neut % (Auto) 92.0 % 03/31/24 05:23 Lymph % (Auto) 4.6 % 03/31/24 05:23 [place] % (Auto) 2.7 % 03/31/24 05:23 Eos % (Auto) 0.0 % 03/31/24 05:23 Baso % (Auto) 0.1 % 03/31/24 05:23 Neut # (Auto) 18.81 10^3/uL (1.8-7.7) H 03/31/24 05:23 Lymph # (Auto) 0.9 10^3/uL (0.8-4.8) 03/31/24 05:23 [place] # (Auto) 0.6 10^3/uL (0.2-0.9) 03/31/24 05:23 Eos # (Auto) 0.0 10^3/uL (0.0-0.8) 03/31/24 05:23 Baso # (Auto) 0.0 10^3/uL (0.0-0.1) 03/31/24 05:23 Nucleated RBC % (auto) 0 % 03/31/24 05:23 Nucleated RBCs # 0.0 /100WBC 03/31/24 05:23 Sodium 138 mmol/L (136-145) 03/31/24 05:23 Potassium 3.6 mmol/L (3.5-5.1) 03/31/24 05:23 Chloride 105 mmol/L (98-107) 03/31/24 05:23 Carbon Dioxide 19 mmol/L (22-29) L 03/31/24 05:23 Anion Gap 17.6 (5-19) 03/31/24 05:23 BUN 19 mg/dL (8-23) 03/31/24 05:23 Creatinine 1.3 mg/dL (0.5-0.9) H 03/31/24 05:23 GFR Calculation Not Reportable 03/31/24 05:23 Glucose 159 mg/dL (65-115) H 03/31/24 05:23 Calculated Osmolality 292 mOsm/kg (285-295) 03/31/24 05:23 Lactic Acid 2.7 mmol/L (0.5-2.2) H 03/30/24 21:25 Lactic Acid (Sepsis) 3.1 mmol/L (0.5-2.2) H 03/31/24 00:00 Calcium 9.2 mg/dL (8.5-10.5) 03/31/24 05:23 Phosphorus 2.8 mg/dL (2.5-4.5) 03/31/24 05:23 Magnesium 1.9 mg/dL (1.7-2.3) 03/31/24 05:23 Total Bilirubin 0.6 mg/dL (0.15-1.2) 03/31/24 05:23 AST 30 U/L (0-32) 03/31/24 05:23 ALT 17 U/L (0-33) 03/31/24 05:23 Alkaline Phosphatase 82 U/L (35-105) 03/31/24 05:23 Troponin T Baseline 42 ng/L (0-10) H 03/30/24 17:24 Troponin T 120 Minute 51.71 ng/L (0-10) H 03/30/24 21:25 Delta Troponin T 9.71 ABS# (0-10) 03/30/24 21:25 Troponin T Hi Sens 6Hr 52.17 ng/L (0-10) H 03/31/24 01:32 Troponin T Hi Sens 6Hr Delta 10.17 ng/L (0-12) 03/31/24 01:32 C-Reactive Protein 13.9 mg/L (0.0-4.9) H 03/30/24 17:24 Total Protein 6.7 g/dL (6.6-8.7) 03/31/24 05:23 Albumin 3.6 g/dL (3.5-5.2) 03/31/24 05:23 Globulin 3.1 g/dL (1.3-4.6) 03/31/24 05:23 Lipase 18 U/L (13-60) 03/30/24 17:24 Procalcitonin 0.27 ng/mL (0-0.5) 03/30/24 17:24 Urine Color Yellow (Yellow) 03/30/24 20:15 Urine Appearance Clear (CLEAR) 03/30/24 20:15 Urine pH 8 (5-7) H 03/30/24 20:15 Ur Specific [place] 1.010 (1.005-1.030) 03/30/24 20:15 Urine Protein 3+ (Negative) H 03/30/24 20:15 Urine Glucose (UA) Norm (Normal) 03/30/24 20:15 Urine Ketones 1+ (Negative) H 03/30/24 20:15 Urine Blood 2+ (Negative) H 03/30/24 20:15 Urine Nitrate Negative (Negative) 03/30/24 20:15 Urine Bilirubin Neg (Negative) 03/30/24 20:15 Prot Sulfosalicylic Acd Positive (Negative) 03/30/24 20:15 Urine Urobilinogen Neg mg/dL (Negative) 03/30/24 20:15 Ur Leukocyte Esterase Negative (Negative) 03/30/24 20:15 Urine RBC 5-10 /hpf (0-2) H 03/30/24 20:15 Urine WBC 0-4 /hpf (0-5) H 03/30/24 20:15 Ur Squamous Epith Cells 0-4 /hpf (0-5) H 03/30/24 20:15 Calcium Oxalate Crystal 0-4 /hpf H 03/30/24 20:15 Amorphous Sediment Trace /hpf 03/30/24 20:15 Urine Bacteria 1+ /hpf (NONE) H 03/30/24 20:15 Urine Mucus Trace /hpf 03/30/24 20:15 Radiology Impressions Chest X-Ray 03/30/24 19:15 IMPRESSION: No evidence for acute cardiopulmonary disease. Abdomen/Pelvis CT 03/30/24 19:26 IMPRESSION: 1. Cholelithiasis and choledocholithiasis. Common bile duct is not optimally visualized. Consider MRCP for further evaluation as clinically warranted. 2. There is bilateral perinephric stranding which may be chronic in nature. If acute pyelonephritis is suspected, CT scan abdomen/pelvis with IV contrast, renal protocol, is recommended for further evaluation. Gallbladder Ultrasound 03/31/24 06:00 IMPRESSION: 1. Extensive gallbladder wall thickening, heterogeneous wall thickening, measured at 9 thickness. Possible wall edema. Lobular irregular, heterogeneous filling defects, material within gallbladder, possibly stones, soft stones, sludge tumefactive sludge, polyps, neoplasm, blood products/clots, or other process. Flooring Installer indicates positive sonographic Bates's sign. Findings compatible with cholecystitis, acute and/or chronic, or other process. Infection, neoplasm, or other process possible. 2. Suggestion of mild nodular configuration liver surface. Liver may hypoechoic, possibly starry skylar/starry night appearance. Correlate for hepatitis, cirrhosis, or other process. 3. No dilated common duct demonstrated. Portions of common duct visualized/demonstrated. 4. Please see body of report for additional findings. Recent Clincial Data Last Vital Signs Temp 97.9 F 03/31/24 11:35 Pulse 60 03/31/24 11:35 Resp 19 H 03/31/24 15:05 BP 113/56 03/31/24 11:35 Pulse Ox 92 03/31/24 15:05 O2 Del Method Room Air 03/31/24 11:35 Vital Signs Temp Pulse Resp BP Pulse Ox O2 Del Method 03/31/24 15:05 19 H 92 03/31/24 11:35 97.9 F 60 19 H 113/56 92 Room Air 03/31/24 10:23 19 H 91 03/31/24 07:44 97.9 F 67 19 H 145/68 91 Room Air 03/31/24 06:00 70 03/31/24 04:00 99.1 F 70 18 194/78 94 Intake & Output/Weight 03/29/24 03/30/24 03/31/24 04/01/24 06:59 06:59 06:59 06:59 Intake Total 590 / 590 2340 / 2340 Balance 590 / 590 2340 / 2340 Weight 57.334 kg Vitals Last Vital Signs Temp 97.9 F 03/31/24 11:35 Pulse 60 03/31/24 11:35 Resp 19 H 03/31/24 15:05 BP 113/56 03/31/24 11:35 Pulse Ox 92 03/31/24 15:05 O2 Del Method Room Air 03/31/24 11:35 TS Medications Medications Acetaminophen (Acetaminophen 325 Mg Tablet) 650 mg PO Q6H PRN PRN Reason: Mild/Mod Pain Or Temp >/= 101 Last Admin: 03/31/24 00:58 Dose: 650 mg Amiodarone HCl (Amiodarone 200 Mg Tablet) 200 mg PO DAILY@0900 [facility] Last Admin: 03/31/24 10:21 Dose: 200 mg Amlodipine Besylate (Amlodipine 5 Mg Tablet) 5 mg PO DAILY@0900 [facility] Last Admin: 03/31/24 10:22 Dose: 5 mg Apixaban (Apixaban 5 Mg Tablet) 2.5 mg PO BID [facility] Atorvastatin Calcium (Atorvastatin 40 Mg Tablet) 20 mg PO DAILY [facility] Cetirizine HCl (Cetirizine 10 Mg Tablet) 5 mg PO DAILY [facility] Last Admin: 03/31/24 10:22 Dose: 5 mg Citalopram Hydrobromide (Citalopram 20 Mg Tablet) 20 mg PO DAILY@0900 [facility] Last Admin: 03/31/24 10:21 Dose: 20 mg Hydralazine HCl (Hydralazine 20 Mg/Ml Inj 1 Ml) 10 mg IVP Q4H PRN PRN Reason: SBP>180mmHg or DBP>110mmHG Last Admin: 03/31/24 00:58 Dose: 10 mg Sodium Chloride (Sodium Chloride 0.9%) 1,000 mls @ 100 mls/hr IV .Q10H [facility] Last Admin: 03/31/24 11:37 Dose: 100 mls/hr Metronidazole (Flagyl Iv) 500 mg in 100 mls @ 100 mls/hr IV Q8H [facility]; Protocol Last Admin: 03/31/24 15:03 Dose: 100 mls/hr Cefepime HCl 1,000 mg/ Sodium (Chloride) 50 mls @ 100 mls/hr IV Q24H [facility]; Protocol Last Infusion: 03/31/24 04:18 Dose: Infused Isosorbide Mononitrate (Isosorbide Mononitrate 20 Mg Tablet) 10 mg PO BID [facility] Last Admin: 03/31/24 10:22 Dose: 10 mg Losartan Potassium (Losartan 50 Mg Tablet) 50 mg PO DAILY@0900 [facility] Metoprolol Tartrate (Metoprolol Tartrate 25 Mg Tablet) 12.5 mg PO BID@0900,2100 [facility] Last Admin: 03/31/24 10:22 Dose: 12.5 mg Morphine Sulfate (Morphine 4 Mg/Ml Sdv 1 Ml) 2 mg IVP Q5M PRN PRN Reason: SEVERE PAIN Last Admin: 03/31/24 15:05 Dose: 2 mg Ondansetron HCl (Ondansetron 2 Mg/Ml Sdv 2 Ml) 4 mg IVP Q8H PRN PRN Reason: vomiting, or N/V if npo Last Admin: 03/31/24 00:57 Dose: 4 mg Ondansetron HCl (Ondansetron 4 Mg Tablet) 4 mg PO Q8H PRN PRN Reason: NAUSEA Pantoprazole Sodium (Pantoprazole 40 Mg Sdv) 40 mg IVP Q12H [facility] Last Admin: 03/31/24 11:37 Dose: 40 mg Potassium Chloride (Potassium Chloride Er 10 Meq Tablet) 10 meq PO DAILY@0900 [facility] Last Admin: 03/31/24 10:22 Dose: 10 meq Tamsulosin HCl (Tamsulosin 0.4 Mg Capsule) 0.4 mg PO DAILY@0900 [facility] Last Admin: 03/31/24 10:21 Dose: 0.4 mg Discontinued Medications Aspirin (Aspirin 81 Mg Chew Tablet) 324 mg PO ONCE ONE Stop: 03/30/24 19:16 Last Admin: 03/30/24 19:26 Dose: 324 mg Hydralazine HCl (Hydralazine 20 Mg/Ml Inj 1 Ml) 10 mg IVP ONCE ONE Stop: 03/30/24 20:50 Last Admin: 03/30/24 20:54 Dose: 10 mg Ciprofloxacin/Dextrose (Cipro) 400 mg in 200 mls @ 200 mls/hr IV ONCE ONE; Protocol Stop: 03/30/24 23:01 Last Infusion: 03/30/24 23:19 Dose: Infused Metronidazole (Flagyl Iv) 500 mg in 100 mls @ 100 mls/hr IV ONCE ONE Stop: 03/30/24 23:01 Last Infusion: 03/30/24 23:19 Dose: Infused Ciprofloxacin/Dextrose (Cipro) 400 mg in 200 mls @ 200 mls/hr IV BID [facility]; Protocol Metronidazole (Flagyl Iv) 500 mg in 100 mls @ 100 mls/hr IV Q8H [facility]; Protocol Last Admin: 03/31/24 00:38 Dose: Not Given Lactated Ringer's (Lactated Ringers) 1,000 mls @ 999 mls/hr IV .Q1H1M ONE Stop: 03/31/24 11:26 Last Infusion: 03/31/24 15:42 Dose: Infused Allergies Iodine and Iodide Containing Produc Allergy (Verified 04/29/22 14:33) Unknown penicillin G Allergy (Verified 04/29/22 14:33) rash Sulfa (Sulfonamide Antibiotics) Allergy (Verified 04/29/22 14:33) rash Home Medications amiodarone 200 mg tablet 200 mg PO DAILY@0900 10/31/19 [History Confirmed 06/07/22] citalopram 20 mg tablet (Celexa) 20 mg PO DAILY@0900 10/31/19 [History Confirmed 06/07/22] isosorbide mononitrate 10 mg tablet 10 mg PO BID 10/31/19 [History Confirmed 06/07/22] lovastatin 20 mg tablet 20 mg PO DAILY 10/31/19 [History Confirmed 06/07/22] metoprolol tartrate 25 mg tablet 12.5 mg PO BID@0900,2100 10/31/19 [History Confirmed 06/07/22] amlodipine 5 mg tablet 5 mg PO DAILY@0900 06/23/20 [History Confirmed 06/07/22] furosemide 20 mg tablet 20 mg PO DAILY@0900 06/23/20 [History Confirmed 06/07/22] potassium chloride 10 mEq tablet,extended release 10 meq PO DAILY@0900 06/23/20 [History Confirmed 06/07/22] Bedside Commode #1 ea 02/11/21 [Rx Confirmed 06/07/22] losartan 50 mg tablet 50 mg PO DAILY@0900 #30 tabs 02/13/21 [Rx Confirmed 06/07/22] acetaminophen 500 mg tablet 500 - 1,000 mg PO Q6H PRN Pain 06/07/22 [History Confirmed 06/07/22] apixaban 2.5 mg tablet (Eliquis) 2.5 mg PO BID 06/07/22 [History Confirmed 06/07/22] cetirizine 10 mg tablet (Zyrtec) 5 mg PO DAILY 06/07/22 [History Confirmed 06/07/22] magnesium 250 mg PO DAILY@0900 #30 tabs 06/07/22 [Rx] pantoprazole 40 mg tablet,delayed release (Protonix) 40 mg PO QAM #30 tabs 06/07/22 [Rx] tamsulosin 0.4 mg capsule 0.4 mg PO DAILY@0900 #30 caps 06/07/22 [Rx] Discharge Plan Discharge Patient Disposition: Xfer Other Condition: Stable Prescriptions: No Action amiodarone 200 mg tablet 200 mg PO DAILY@0900 amlodipine 5 mg tablet 5 mg PO DAILY@0900 potassium chloride 10 mEq tablet extended release 10 meq PO DAILY@0900 furosemide 20 mg tablet 20 mg PO DAILY@0900 lovastatin 20 mg tablet 20 mg PO DAILY isosorbide mononitrate 10 mg tablet 10 mg PO BID citalopram [Celexa] 20 mg tablet 20 mg PO DAILY@0900 metoprolol tartrate 25 mg tablet 12.5 mg PO BID@0900,2100 (DME) Bedside Commode See Rx Instructions .Route .MEDSUPPLY Qty: 1 0RF Rx Instructions: As directed losartan 50 mg Tablet 50 mg PO DAILY@0900 Qty: 30 0RF Zyrtec 10 mg Tablet 5 mg PO DAILY acetaminophen 500 mg Tablet 500 - 1,000 mg PO Q6H PRN (Reason: Pain) Eliquis 2.5 mg tablet 2.5 mg PO BID tamsulosin 0.4 mg Capsule 0.4 mg PO DAILY@0900 Qty: 30 0RF Magnesium 250 mg PO DAILY@0900 Qty: 30 0RF Protonix 40 mg tablet,delayed release (DR/EC) 40 mg PO QAM Qty: 30 0RF Rx Instructions: on an empty stomach, 1 hr before a meal Referrals: Lidia Stephens PA [Primary Care Provider] - 4-7 days Transfer Attestations Time Spent in Transfer Care: greater than 30 min Status at Transfer: Cognitive status at transfer: cognitively intact; Behavioral status at transfer: cooperative; Quality Metrics Clinical Quality Measures [ No reported AMI, CVA or VTE this stay] Coding Level of Care Code 03994 Total time (in minutes) for Discharge: 120 Diagnoses Choledocholithiasis K80.50 Cholecystitis K81.9
--- NOTE | 2024-03-31 20:01 | PC.NURSE ---
Addendum entered by Chen Gaxiola RN 03/31/24 20:32: This nurse witnessed Rashard Lane RN waste two separate doses of Morphine for this patient at 2mg each into narcotic disposal. Unable to waste in pyxis as patient was discharged from facility and removed from pyxis. Original Note: This nurse failed to waste Morphine x2 in the pyxis before patient was transported and shipped to new facility. This nurse wasted the morphine with shift production associate charge Christoph Gaxiola RN.
== END 2024-03-31 17:41 | disposition other institution (70) ==
LOC: ER 19:21 → MEDSURG 03-31 01:15
PROVIDERS: Admitting Provider Internal Medicine; Emergency Provider Family Medicine; PCP Physician Assistant; Visit Provider Internal Medicine
DX: K80.10 Calculus of gallbladder with chronic cholecystitis without obstruction (principal); I10 Essential (primary) hypertension; I48.19 Other persistent atrial fibrillation; I49.5 Sick sinus syndrome; Z95.0 Presence of cardiac pacemaker; E78.5 Hyperlipidemia, unspecified; K21.9 Gastro-esophageal reflux disease without esophagitis; M19.90 Unspecified osteoarthritis, unspecified site; I48.91 Unspecified atrial fibrillation; E87.6 Hypokalemia; Z79.01 Long term (current) use of anticoagulants
CPT/HCPCS: 36415; 71045; 74176; 76705; 80053; 81001; 83605; 83690; 83735; 84100; 84145; 84484; 85025; 86140; 87040; 87086; 87150; 87205; 93005; 96365; 96366; 96367; 96375; 96376; 99285; C9113; G0378; J0360; J0692; J0744; J2270; J2405; J3490; J7030; J7120

== ENCOUNTER → 2024-07-19 13:00 | Outpatient (BNVA) | payer MEDICARE, MEDICAID, SELFPAY | PROVIDERS: PCP Physician Assistant; Referring Provider Physician Assistant; Visit Provider Nurse Practitioner Family | DX: L23.9 Allergic contact dermatitis, unspecified cause (principal); L57.0 Actinic keratosis; L82.0 Inflamed seborrheic keratosis; D18.01 Hemangioma of skin and subcutaneous tissue; D17.22 Benign lipomatous neoplasm of skin and subcutaneous tissue of left arm | CPT/HCPCS: 17004; 17110; 99204 ==

== ENCOUNTER → 2024-10-01 13:28 | Outpatient (BNVA) | payer MEDICARE, MEDICAID, SELFPAY | PROVIDERS: PCP Physician Assistant; Visit Provider Nurse Practitioner Family | DX: D18.01 Hemangioma of skin and subcutaneous tissue (principal); D17.22 Benign lipomatous neoplasm of skin and subcutaneous tissue of left arm; D17.21 Benign lipomatous neoplasm of skin and subcutaneous tissue of right arm; L57.8 Other skin changes due to chronic exposure to nonionizing radiation; L85.3 Xerosis cutis; L81.4 Other melanin hyperpigmentation; L82.1 Other seborrheic keratosis; L57.0 Actinic keratosis | CPT/HCPCS: 17000; 99213 ==

== ENCOUNTER → 2024-12-19 08:46 | Outpatient (BNVA) | payer MEDICARE, SELFPAY | PROVIDERS: PCP Physician Assistant; Visit Provider Internal Medicine | DX: Z45.018 Encounter for adjustment and management of other part of cardiac pacemaker (principal) | CPT/HCPCS: 93296 ==

== ENCOUNTER 2024-12-31 12:15 | Emergency (ER) | payer MEDICARE, SELFPAY ==
--- NOTE | 2024-12-31 12:18 | XRR_ITS ---
PROCEDURE INFORMATION: Exam: XR Lumbosacral Spine Exam date and time: 12/31/2024 12:38 PM Age: 84 years old Clinical indication: Injury or trauma; Fall; Blunt trauma (contusions or hematomas) TECHNIQUE: Imaging protocol: Radiologic exam of the lumbosacral spine. Views: 2 or 3 views. COMPARISON: CT abdomen pelvis con [id number] 03/30/2024 7:36 PM FINDINGS: Bones/joints: Mild anterolisthesis L3-L4. Diffuse degenerative disc disease and facet arthropathy. No fracture. Soft tissues: Unremarkable. XR/XR lumbar spine 2-3V* [id number] IMPRESSION: No acute findings.
--- NOTE | 2024-12-31 12:18 | XRR_ITS ---
PROCEDURE INFORMATION: Exam: XR Thoracic Spine Exam date and time: 12/31/2024 12:41 PM Age: 84 years old Clinical indication: Injury or trauma; Fall; Blunt trauma (contusions or hematomas) TECHNIQUE: Imaging protocol: Radiologic exam of the thoracic spine. Views: 3 views. COMPARISON: CR XR lumbar spine 2-3V* [id number] 12/31/2024 12:38 PM FINDINGS: Tubes, catheters and devices: Dual-chamber pacemaker. Bones/joints: Normal alignment. No acute fracture. Diffuse degenerative disc disease. Osteopenia. Soft tissues: Unremarkable. XR/XR thoracic spine 3V* [id number] IMPRESSION: No acute findings.
[2024-12-31 12:20] VITALS: PULSE 76; RESP 16; TEMP 36.6; O2SAT 100; BMI 32.1
--- NOTE | 2024-12-31 12:22 | W.ED.FALL ---
HPI - Fall General: Chief Complaint: Back Pain/Injury Stated Complaint: fall - right hip pain Time Seen by Provider: 12/31/24 12:16 Source: patient Mode of arrival: ambulatory Limitations: no limitations History of Present Illness: 84-year-old female who is here with EMS she had tripped over a rug and fell at home. Patient's had a hip replacement on the right side 3 years ago states she is having some pain in that right hip month her back. She rates the pain in her back a 2 out of 10 hips a 5 out of 10 she is ambulatory at the scene after her fall did not hit her head no loss conscious does have a history anxiety and states she feels very anxious and like she cannot get a deep breath then. Patient now states that her hip does not hurt and it is her left knee that hurts Associated symptoms-after fall: Denies abdominal pain, chest pain, headache(s) or neck pain Related Data Home Medications ?Medication ?Instructions ?Recorded ?Confirmed amiodarone 200 mg tablet 200 mg PO DAILY@0910/31/19 12/31/24 citalopram 20 mg tablet (Celexa) 20 mg PO DAILY@0910/31/19 12/31/24 isosorbide mononitrate 10 mg tablet 10 mg PO BID 10/31/19 12/31/24 lovastatin 20 mg tablet 20 mg PO DAILY 10/31/19 12/31/24 metoprolol tartrate 25 mg tablet 12.5 mg PO BID@0900,2100 10/31/19 12/31/24 amlodipine 5 mg tablet 5 mg PO DAILY@89906/23/20 12/31/24 furosemide 20 mg tablet 20 mg PO DAILY@89906/23/20 12/31/24 potassium chloride 10 mEq 10 meq PO DAILY@89906/23/20 12/31/24 tablet,extended release acetaminophen 500 mg tablet 500 - 1,000 mg PO Q6H PRN Pain 06/07/22 12/31/24 apixaban 2.5 mg tablet (Eliquis) 2.5 mg PO BID 06/07/22 12/31/24 cetirizine 10 mg tablet (Zyrtec) 5 mg PO DAILY 06/07/22 12/31/24 Previous Rx's ?Medication ?Instructions ?Recorded losartan 50 mg tablet 50 mg PO DAILY@0900 #30 tabs 02/13/21 magnesium 250 mg PO DAILY@0900 #30 tabs 06/07/22 pantoprazole 40 mg tablet,delayed 40 mg PO QAM #30 tabs 06/07/22 release (Protonix) tamsulosin 0.4 mg capsule 0.4 mg PO DAILY@0900 #30 caps 06/07/22 Allergies Allergy/AdvReac Type Severity Reaction Status Date / Time Iodine and Iodide Containing Allergy Unknown Verified 04/29/22 14:33 Produc penicillin G Allergy rash Verified 04/29/22 14:33 Sulfa (Sulfonamide Allergy rash Verified 04/29/22 14:33 Antibiotics) Review of Systems Const: Denies: fever(s), chills, body aches or change in appetite ENMT: Denies: throat pain or dental pain Card: Denies: chest pain Resp: Denies: dyspnea GI: Denies: abdominal pain, nausea, vomiting or diarrhea Musc: Denies: neck pain or back pain Skin/Breast: Denies: rash Neuro: Denies: headache(s) Psych: Reports: anxiety PFSH ED PFSH: Medical History (Updated 12/31/24 @ 13:37 by Millie Ortiz MD) Hypertension Abdominal pain Atrial fibrillation Arthritis History of anemia 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 Tachy-yun syndrome Sick sinus syndrome Hyperlipidemia Essential hypertension GERD (gastroesophageal reflux disease) Persistent atrial fibrillation Surgical History (Updated 03/30/24 @ 22:58 by Barry Kilgore MD) Status post right hip replacement History of back surgery Family History Father CAD (coronary artery disease) Lung disease Mother Dementia Hypertension Sister Dementia Other Diabetes Social History Smoking and tobacco/nicotine status: never used tobacco/nicotine Alcohol intake: never Substance/Drug Use: never Physical Exam Const: COMMON NORMALS: no acute distress, patient oriented x3 and healthy appearing HENMT: COMMON NORMALS: normocephalic and atraumatic HEAD & SCALP: normocephalic and atraumatic Eye: COMMON NORMALS: Equal, round and reactive pupils present and EOMs intact bilaterally PUPIL: Yes Equal, round and reactive pupils present Neck/C-Spine: COMMON NORMALS: full ROM and supple CERVICAL SPINE: No Cervical spine tenderness Chest: COMMONS NORMALS: normal inspection of the chest and normal palpation of entire chest wall Resp: COMMON NORMALS: normal respiratory effort, No retractions, No use of accessory muscles and clear to auscultation bilaterally AUSCULTATION: clear to auscultation bilaterally Cardio: COMMON NORMALS: regular rate, regular rhythm and No murmurs present (Cardio) RATE: regular rate RHYTHM: regular rhythm GI: COMMON NORMALS: Normal to inspection, nondistended, normoactive bowel sounds present, Soft to palpation, non-tender and no masses PALPATION: Yes Soft to palpation Extremity: COMMON NORMALS: normal to inspection and full ROM NARRATIVE EXTREMITY EXAM: Slight tenderness over right hip Neuro: COMMON NORMALS: patient oriented x3, moves all extremities and no focal motor deficits Psych: COMMON NORMALS: mental status grossly normal, Normal thought process present and cooperative THOUGHT PROCESS: Normal thought process present Skin: COMMON NORMALS: no rashes or lesions noted and no wounds GENERAL SKIN EXAM: no rashes or lesions noted Course Vital Signs: Vital signs: Vital Signs Temperature 97.9 F 12/31/24 12:20 Pulse Rate 76 12/31/24 12:20 Respiratory Rate 16 12/31/24 12:20 Blood Pressure 155/97 12/31/24 12:33 Pulse Oximetry 100 12/31/24 12:20 Oxygen Delivery Me thod Room Air 12/31/24 12:20 MDM - Fall Medical Decision Making Patient presents here with knee pain along with back pain after a fall imaging here is all normal she stable for discharge follow-up PCP return if worsening. Medical Records I reviewed the patient's medical records. Lab Data I reviewed the patient's lab results. Radiology Impressions Lumbar Spine X-Ray 12/31/24 12:18 IMPRESSION: No acute findings. Thoracic Spine X-Ray 12/31/24 12:18 IMPRESSION: No acute findings. Knee X-Ray 12/31/24 12:35 IMPRESSION: Tricompartmental DJD. All radiology interpretation(s) finalized by discharge Discharge Plan Discharge Patient Disposition: Home Clinical Impression: Fall, Left knee pain, Back pain Condition: Stable Prescriptions: No Action amiodarone 200 mg tablet 200 mg PO DAILY@0900 amlodipine 5 mg tablet 5 mg PO DAILY@0900 potassium chloride 10 mEq tablet extended release 10 meq PO DAILY@0900 furosemide 20 mg tablet 20 mg PO DAILY@0900 lovastatin 20 mg tablet 20 mg PO DAILY isosorbide mononitrate 10 mg tablet 10 mg PO BID citalopram [Celexa] 20 mg tablet 20 mg PO DAILY@0900 metoprolol tartrate 25 mg tablet 12.5 mg PO BID@0900,2100 losartan 50 mg Tablet 50 mg PO DAILY@0900 Qty: 30 0RF cetirizine [Zyrtec] 10 mg Tablet 5 mg PO DAILY acetaminophen 500 mg Tablet 500 - 1,000 mg PO Q6H PRN (Reason: Pain) Eliquis 2.5 mg tablet 2.5 mg PO BID tamsulosin 0.4 mg Capsule 0.4 mg PO DAILY@0900 Qty: 30 0RF Magnesium 250 mg PO DAILY@0900 Qty: 30 0RF pantoprazole [Protonix] 40 mg tablet,delayed release (DR/EC) 40 mg PO QAM Qty: 30 0RF Rx Instructions: on an empty stomach, 1 hr before a meal Discharge Orders: Discharge ED (Routine); Ordered 12/31/24 Ordered By: Millie Ortiz Referrals: Lidia Stephens PA [Primary Care Provider] - 4-7 days Discharge Diet: Advance as tolerated Discharge Activity: Resume usual activity Patient Instructions: Back Pain (ED) Print Language: Yakut Coding Level of Care Code ED Stone Gluer for Adriano Palacios
[2024-12-31 12:33] VITALS: BP 155/97
--- NOTE | 2024-12-31 12:35 | XRR_ITS ---
PROCEDURE INFORMATION: Exam: XR Left Knee Exam date and time: 12/31/2024 12:35 PM Age: 84 years old Clinical indication: Injury or trauma; Fall; Blunt trauma; Knee; Left TECHNIQUE: Imaging protocol: Radiologic exam of the left knee. Views: 3 views. COMPARISON: No relevant prior studies available. FINDINGS: Bones/joints: There is tricompartmental joint space loss with subchondral sclerosis and osteophytosis. No effusion. No fracture. Osteopenia. Soft tissues: Normal. XR/XR knee LT 3V* [id number] IMPRESSION: Tricompartmental DJD.
--- NOTE | 2024-12-31 12:36 | PC.PHAR ---
patient states she just gets them all in a card and takes whats there every morning like she did today..no external med list and she also doesn't know the name of the company that sends her the medications. called daughter since the patient says that she can help, she confirmed the medications for me
[2024-12-31] MEDS: LORazepam 0.5 mg Tablet PO (12:53)
[2024-12-31 14:05] VITALS: BP 149/85; PULSE 63; O2SAT 99
== END 2024-12-31 14:07 | disposition home or self-care (01) ==
PROVIDERS: Emergency Provider Emergency Medicine; PCP Physician Assistant
DX: M25.562 Pain in left knee (principal); M54.9 Dorsalgia, unspecified; W19.XXXA Unspecified fall, initial encounter; Z79.01 Long term (current) use of anticoagulants; Z95.0 Presence of cardiac pacemaker; E78.5 Hyperlipidemia, unspecified; I10 Essential (primary) hypertension
CPT/HCPCS: 72072; 72100; 73562; 99284

== ENCOUNTER → 2025-03-20 11:14 | Outpatient (BNVA) | payer MEDICARE, SELFPAY | PROVIDERS: PCP Physician Assistant; Visit Provider Internal Medicine Cardiovascular Disease | DX: Z45.018 Encounter for adjustment and management of other part of cardiac pacemaker (principal) | CPT/HCPCS: 93296 ==

== ENCOUNTER → 2025-09-11 13:26 | Outpatient (BNVA) | payer MEDICARE, SELFPAY | PROVIDERS: PCP Physician Assistant; Visit Provider Internal Medicine Cardiovascular Disease | DX: Z45.018 Encounter for adjustment and management of other part of cardiac pacemaker (principal) | CPT/HCPCS: 93296 ==